=== PATIENT | male | born 1950 | race Caucasian/White ===

== ENCOUNTER → 2017-11-05 | Outpatient (CLI) | payer BC, MEDICARE | END | disposition home or self-care (01) | LOC: SHCH 14:29 | PROVIDERS: ATTEND Internal Medicine Cardiovascular Disease | DX: E11.319 Type 2 diabetes mellitus with unspecified diabetic retinopathy without macular edema (principal); I10 Essential (primary) hypertension | CPT/HCPCS: 93306 ==

== ENCOUNTER → 2022-05-18 | Outpatient (CLI) | payer BC, MEDICARE ==
[2022-05-18 12:27] LABS: BASOPHILS % (AUTO) 0.4 % (0.0-5.0); EOSINOPHILS % (AUTO) 1.3 % (0.0-8.0); HEMATOCRIT 34.9 % (42-54); LYMPHOCYTES % (AUTO) 13.6 % (21.0-51.0); MEAN CORPUSCULAR HEMOGLOBIN 32.4 pg (27.0-33.0); MEAN CORPUSCULAR HGB CONC 34.7 g/dL (32.0-36.0); MEAN CORPUSCULAR VOLUME 93.3 fL (79-99); MONOCYTES % (AUTO) 6.5 % (3.0-13.0); NEUTROPHILS % (AUTO) 77.5 % (40.0-77.0); PLATELET COUNT (AUTO) 207 K/uL (130-400); RED BLOOD CELL COUNT(AUTO) 3.74 MIL/uL (4.50-6.20); RED CELL DISTRIBUTION WIDTH 13.9 % (11.0-15.5); WHITE BLOOD COUNT (AUTO) 14.8 K/uL (4.8-10.8)
[2022-05-18 12:35] LABS: CREATININE 1.7 mg/dL (0.5-1.5); POTASSIUM 4.9 mmol/L (3.5-5.1)
[2022-05-18 12:41] LABS: INR 0.93 (0.85-1.15); PROTHROMBIN TIME 9.8 SEC (9.6-11.6)
[2022-05-18 12:42] LABS: PARTIAL THROMBOPLASTIN TIME 44.4 SEC (26.3-35.5)
== END | disposition home or self-care (01) ==
LOC: LAB 08:55
PROVIDERS: ATTEND Internal Medicine Cardiovascular Disease
DX: I73.9 Peripheral vascular disease, unspecified (principal)
CPT/HCPCS: 36415; 80048; 85025; 85610; 85730

== ENCOUNTER → 2023-01-18 | Outpatient (CLI) | payer BC, MEDICARE ==
[2023-01-18 12:21] LABS: BASOPHILS % (AUTO) 0.8 % (0.0-5.0); EOSINOPHILS % (AUTO) 3.5 % (0.0-8.0); HEMATOCRIT 31.8 % (42-54); LYMPHOCYTES % (AUTO) 17.1 % (21.0-51.0); MEAN CORPUSCULAR HEMOGLOBIN 31.5 pg (27.0-33.0); MEAN CORPUSCULAR HGB CONC 32.7 g/dL (32.0-36.0); MEAN CORPUSCULAR VOLUME 96.4 fL (79-99); MONOCYTES % (AUTO) 8.2 % (3.0-13.0); NEUTROPHILS % (AUTO) 69.7 % (40.0-77.0); PLATELET COUNT (AUTO) 214 K/uL (130-400); RED CELL DISTRIBUTION WIDTH 13.6 % (11.0-15.5); WHITE BLOOD COUNT (AUTO) 7.7 K/uL (4.8-10.8)
[2023-01-18 12:26] LABS: CREATININE 2.1 mg/dL (0.5-1.5)
[2023-01-18 12:37] LABS: INR 0.95 (0.85-1.15); PROTHROMBIN TIME 10.4 SEC (9.6-11.6)
[2023-01-18 12:38] LABS: PARTIAL THROMBOPLASTIN TIME 42.3 SEC (26.3-35.5)
== END | disposition home or self-care (01) ==
LOC: LAB 09:43
PROVIDERS: ATTEND Internal Medicine Cardiovascular Disease
DX: I73.9 Peripheral vascular disease, unspecified (principal); I10 Essential (primary) hypertension; Z79.01 Long term (current) use of anticoagulants
CPT/HCPCS: 36415; 80048; 85025; 85610; 85730

== ENCOUNTER 2023-05-25 06:02 | Emergency (ER) | payer BC, MEDICARE ==
[~2023-05-25] VITALS: Ht 170.2 cm; Wt 82.6 kg
[2023-05-25 06:42] LABS: BASOPHILS # (AUTO) 0.09 K/uL (0.00-0.20); BASOPHILS % (AUTO) 0.7 % (0.0-5.0); EOSINOPHILS # (AUTO) 0.18 K/uL (0.00-0.70); EOSINOPHILS % (AUTO) 1.3 % (0.0-8.0); HEMATOCRIT 34.1 % (42-54); IMMATURE GRANULOCYTE ABSOLUTE 0.09 K/uL (0-1); LYMPHOCYTES # (AUTO) 1.6 K/uL (1.0-4.8); LYMPHOCYTES % (AUTO) 11.3 % (21.0-51.0); MEAN CORPUSCULAR HEMOGLOBIN 31.6 pg (27.0-33.0); MEAN CORPUSCULAR HGB CONC 33.1 g/dL (32.0-36.0); MEAN CORPUSCULAR VOLUME 95.3 fL (79-99); MONOCYTES # (AUTO) 1.3 K/uL (0.1-1.0); MONOCYTES % (AUTO) 9.4 % (3.0-13.0); NEUTROPHILS # (AUTO) 10.5 K/uL (1.8-7.7); NEUTROPHILS % (AUTO) 76.6 % (40.0-77.0); PLATELET COUNT (AUTO) 196 K/uL (130-400); RED BLOOD CELL COUNT(AUTO) 3.58 MIL/uL (4.50-6.20); RED CELL DISTRIBUTION WIDTH 12.5 % (11.0-15.5); WHITE BLOOD COUNT (AUTO) 13.7 K/uL (4.8-10.8)
[2023-05-25 07:00] LABS: INR < 0.93 (0.85-1.15); PROTHROMBIN TIME 10.7 SEC (9.6-11.6)
[2023-05-25 07:10] LABS: ALBUMIN 3.3 g/dL (3.5-5.0); BILIRUBIN,TOTAL 0.4 mg/dL (0.2-1.0); POTASSIUM 4.8 mmol/L (3.5-5.1); TOTAL PROTEIN, SERUM 6.2 g/dL (6.0-8.3)
[2023-05-25 10:25] VITALS: BP 118/28; PULSE 61; RESP 20; O2SAT 98
== END 2023-05-25 10:27 | disposition home or self-care (01) ==
LOC: EDH 06:02
DX: I47.1 Supraventricular tachycardia (principal); R55 Syncope and collapse; E11.9 Type 2 diabetes mellitus without complications; I10 Essential (primary) hypertension; Z86.73 Personal history of transient ischemic attack (TIA), and cerebral infarction without residual deficits
CPT/HCPCS: 36415; 70450; 72125; 80053; 84484; 85025; 85610; 85730; 93005

== ENCOUNTER 2023-06-03 07:38 | Day surgery (SDC) | payer BC, MEDICARE ==
[2023-06-01 11:47] LABS: BASOPHILS # (AUTO) 0.05 K/uL (0.00-0.20); BASOPHILS % (AUTO) 0.6 % (0.0-5.0); EOSINOPHILS % (AUTO) 2.4 % (0.0-8.0); HEMATOCRIT 33.9 % (42-54); IMMATURE GRANULOCYTE ABSOLUTE 0.08 K/uL (0-1); LYMPHOCYTES # (AUTO) 1.8 K/uL (1.0-4.8); LYMPHOCYTES % (AUTO) 22.2 % (21.0-51.0); MEAN CORPUSCULAR HEMOGLOBIN 31.2 pg (27.0-33.0); MEAN CORPUSCULAR HGB CONC 32.7 g/dL (32.0-36.0); MEAN CORPUSCULAR VOLUME 95.2 fL (79-99); MONOCYTES # (AUTO) 0.6 K/uL (0.1-1.0); MONOCYTES % (AUTO) 7.1 % (3.0-13.0); NEUTROPHILS # (AUTO) 5.5 K/uL (1.8-7.7); NEUTROPHILS % (AUTO) 66.7 % (40.0-77.0); PLATELET COUNT (AUTO) 219 K/uL (130-400); RED BLOOD CELL COUNT(AUTO) 3.56 MIL/uL (4.50-6.20); RED CELL DISTRIBUTION WIDTH 12.7 % (11.0-15.5); WHITE BLOOD COUNT (AUTO) 8.3 K/uL (4.8-10.8)
[2023-06-01 11:57] VITALS: BP 129/59; PULSE 64; RESP 18
[2023-06-01 11:59] LABS: INR < 0.93 (0.85-1.15); PROTHROMBIN TIME 10.2 SEC (9.6-11.6)
[2023-06-01 12:35] LABS: CREATININE 2.1 mg/dL (0.5-1.5); POTASSIUM 4.3 mmol/L (3.5-5.1)
[2023-06-03] VITALS (8 sets, daily range): BP systolic 132–146; BP diastolic 62–76; PULSE 57–84; RESP 14–18
[~2023-06-03] VITALS: Ht 170.2 cm; Wt 82.6 kg
[~2023-06-03 07:38] MED LIST: AEC81 PO; ATOR10 PO; CHOL100053 PO; CLOP75TA32 PO; DOCU100T PO; DRON400T7 PO; FOLI1TAB85 PO; INSLAN SQ; INSU100V3 SQ; LATA2.5D14 OD; LEVO25CA4 PO; MAGNESIUM PO; PANT40TA54 PO
[2023-06-03 08:08] LABS: CREATININE 2.3 mg/dL (0.5-1.5); POTASSIUM 5.4 mmol/L (3.5-5.1)
[2023-06-03] MEDS ORDERED: HEPARIN 10,000 UNIT/10ML (1,000 UNIT/ML) VIAL ONE (10:05)
[2023-06-03] MEDS ORDERED: LIDOCAINE HCL 400MG/20ML VIAL ONE ×2 (10:05→10:35)
[2023-06-03] MEDS ORDERED: MEPERIDINE-PF 25 MG/ML SYG ONE ×2 (10:05→11:56)
[2023-06-03] MEDS ORDERED: ISOPROTERENOL HCL 0.2 MG/ML AMP/VIAL/BAG ONE (10:05)
[2023-06-03] MEDS ORDERED: MIDAZOLAM HCL 1 MG/ML 2ML VIAL ONE ×2 (10:05→11:55)
[2023-06-03] MEDS ORDERED: HYDRALAZINE 20MG/ML VIAL ONE (12:49)
== END 2023-06-03 15:35 | disposition home or self-care (01) ==
LOC: DAH 07:38
PROVIDERS: ATTEND Internal Medicine Cardiovascular Disease
DX: I47.1 Supraventricular tachycardia (principal); E11.22 Type 2 diabetes mellitus with diabetic chronic kidney disease; I12.9 Hypertensive chronic kidney disease with stage 1 through stage 4 chronic kidney disease, or unspecified chronic kidney disease; N18.30 Chronic kidney disease, stage 3 unspecified; E11.51 Type 2 diabetes mellitus with diabetic peripheral angiopathy without gangrene; E78.5 Hyperlipidemia, unspecified; K21.9 Gastro-esophageal reflux disease without esophagitis; I25.2 Old myocardial infarction; G47.30 Sleep apnea, unspecified; Z79.01 Long term (current) use of anticoagulants; Z79.899 Other long term (current) drug therapy; Z98.890 Other specified postprocedural states; Z79.82 Long term (current) use of aspirin; Z88.8 Allergy status to other drugs, medicaments and biological substances; Z86.73 Personal history of transient ischemic attack (TIA), and cerebral infarction without residual deficits; Z72.89 Other problems related to lifestyle; Z86.16 Personal history of COVID-19; Z98.41 Cataract extraction status, right eye; Z98.42 Cataract extraction status, left eye; Z90.89 Acquired absence of other organs; Z79.4 Long term (current) use of insulin; Z79.890 Hormone replacement therapy; Z87.891 Personal history of nicotine dependence; Z81.1 Family history of alcohol abuse and dependence; Z82.5 Family history of asthma and other chronic lower respiratory diseases; Z83.3 Family history of diabetes mellitus; Z83.438 Family history of other disorder of lipoprotein metabolism and other lipidemia; Z80.1 Family history of malignant neoplasm of trachea, bronchus and lung
CPT/HCPCS: 80048 ×2; 85025; 85610; 85730; 36415 ×2; 93005; 93653; 93623; 82948 ×2; C1894 ×5; C1732 ×2; C1730 ×3; A4649 ×2; J3490 ×3; J0360; J1644 ×2; J2250; J2175; A4215; A4221; A4663; A4216; A4606; A4223 ×3; A4222; 99156; 99157

== ENCOUNTER → 2023-07-08 | Outpatient (CLI) | payer BC, MEDICARE ==
[~2023-07-08] MED LIST changes: -DRON400T7 PO
== END | disposition home or self-care (01) ==
LOC: SHCH 14:44
PROVIDERS: ATTEND Internal Medicine Cardiovascular Disease
DX: I73.9 Peripheral vascular disease, unspecified (principal)
CPT/HCPCS: 93970

== ENCOUNTER 2024-11-29 07:06 | Inpatient (IN) | payer BC, MEDICARE ==
[~2024-11-29] VITALS: Ht 170.2 cm; Wt 98.4 kg
[2024-11-29] VITALS (10 sets, daily range): BP systolic 140–150; BP diastolic 70–71; PULSE 52–80; RESP 18–21; TEMP 97.6–97.9; O2SAT 96–100
--- NOTE | 2024-11-29 08:30 | ERN ---
General Chief Complaint: Wound Check Stated Complaint: LEFT FOOT WOUND Time Seen by MD: 07:08 Source: patient History of Present Illness Initial Comments This is a 74-year-old male coming in to be evaluated for left foot 2nd digit necrosis. Per patient he was seen by his ortho assistant and sent in for further evaluation. He states that on Wednesday he was seen by Dr. Horta for ongoing evaluation of left foot 2nd digit necrosis. Allergies: Coded Allergies: No Known Drug Allergies (Unverified Allergy, Unknown, 05/25/23) Home Meds Reported Medications Latanoprost (Latanoprost) 2.5 Ml Drops, 1 DROP OD HS, DROP 06/01/23 Insulin Glargine,Hum.rec.anlog (Lantus) 100 Units/Ml Inj, 5 UNITS SQ HS, ML SLIDING SCALE 06/01/23 Insulin Regular, Human (Humulin R) 100 Unit/1 Ml Vial, SQ TID, VIAL SLIDING SCALE 06/01/23 Docusate Sodium (Docusate Sodium) 100 Mg Tablet, 100 MG PO HS, TAB 06/01/23 Levothyroxine Sodium (Levothyroxine) 25 Mcg Capsule, 25 MCG PO HS, CAP 06/01/23 Clopidogrel Bisulfate (Clopidogrel) 75 Mg Tablet, 75 MG PO DAILY, TAB 06/01/23 Vit B Cmplx 3/FA/Vit C/Biotin (Jenna-Gretchen Rx Tablet) 1 Each Tablet, 1 EACH PO DAILY, TAB 06/01/23 Pantoprazole Sodium (Pantoprazole Sodium) 40 Mg Tablet.dr, 40 MG PO DAILY, TAB 06/01/23 Cholecalciferol (Vitamin D3) (Vitamin D3) 250 Mcg Capsule, 250 MCG PO ACBKFST, CAP 06/01/23 Aspirin (ASPIRIN 81 MG ECTAB) 81 Mg Ectab, 81 MG PO DAILY, TAB.EC 06/01/23 Atorvastatin Calcium (LIPITOR) 20 Mg Tab, 20 MG PO HS, TAB 06/01/23 [Magnesium] No Conflict Check, 240 MG PO HS 06/01/23 Past Medical History Past Medical History: Cancer, CVA, Diabetes-Type II, Hypertension, IN Medical History Other: SVT, Past Surgical History: CABG, Unknown Family History Family History: Negative Social History Social History: Negative ROS Dictation CONSTITUTIONAL: No chills, no fever, no weakness, no diaphoresis, no malaise. HEAD/FACE: No signs of trauma. EENT: No eye pain, no blurred vision, no tearing, no double vision, no ear pain, no ear discharge, no nose pain, no nasal congestion, no throat pain, no throat swelling, no mouth pain. RESPIRATORY: No cough, no orthopnea, no SOB, no stridor, no wheezing. CARDIOVASCULAR: No chest pain, no edema, no palpitations, no syncope. GASTROINTESTINAL/ABDOMINAL: No abdominal pain, no constipation, no diarrhea, no nausea, no vomiting. GENITOURINARY: No abnormal discharge, no dysuria, no frequent urination, no hematuria. No complaints of pain in the genitals. MUSCULOSKELETAL: No back pain, no gout, no joint pain, no joint swelling, no muscle pain, no muscle stiffness, no neck pain. INTEGUMENTARY: change in color, no change in hair/nails, no dryness, no lesion, no lumps, no rash. NEUROLOGICAL/PSYCH: No anxiety, not depressed, no emotional problem, no headac he, no numbness, no pre-existing deficit, no history of seizures, no tremors, no weakness. HEMATOLOGIC/LYMPHATIC: Not anemic, no history of blood clots, no apparent bleeding, no bruising, glands not swollen. All Systems Negative, Except as Noted. Physical Exam Physical Exam Dictation VITAL SIGNS: Reviewed. GENERAL APPEARANCE: Alert, oriented x3, no acute distress, obese. HEAD AND FACE: Non-traumatic. EYES: PERRL, pink conjunctivas, eyelid no trauma, anterior chamber clear. EARS: Pinnas intact and no signs of trauma or erythema. Ear canals clear and no discharge. TMs no erythema. NOSE: No discharge, no bleeding. OROPHARYNX: Mouth normal, teeth no caries, tongue pink. Pharynx clear, no erythema. Tonsils no exudates, no abscesses noted. Mucous membrane moist. NECK: Supple, non-tender, no thyromegaly, no masses, no JVD, no bruits. BREAST: Deferred. CHEST: No tenderness, no crepitus, no paradoxical movement, no retractions. LUNGS: Clear, well-ventilated, symmetric, no rales, no wheezing, no rhonchi, no stridor, good breath sounds bilaterally. HEART: Regular rate, regular rhythm, no murmur, no gallops. VASCULAR: No peripheral edema. ABDOMEN: Soft, positive bowel sounds, nondistended, no guarding, nontender, no rebound, no masses no hepatomegaly, no splenomegaly, no Bowers's sign, no hernias. RECTAL: Deferred. GENITAL: Deferred. NEUROLOGICAL: Normal speech, gross motor function intact, gross sensory function intact. MUSCULOSKELETAL: Neck nontender, full range of motion, back nontender, full range of motion. EXTREMITIES: Nontender, full range of motion. Left foot 2nd digit necrosis SKIN: Color pink, dry, no turgor, no rash, no lacerations, no abrasions, no contusions. LYMPHATICS: Deferred. Results Laboratory and Microbiology Lab and Micro Result Laboratory Tests Test 11/29/24 08:34 White Blood Count 12.5 K/uL (4.8-10.8) H Red Blood Count 4.04 MIL/uL (4.50-6.20) L Hemoglobin 12.6 g/dL (14.0-18.0) L Hematocrit 38.6 % (42-54) L Mean Corpuscular Volume 95.5 fL (79-99) Mean Corpuscular Hemoglobin 31.2 pg (27.0-33.0) Mean Corpuscular Hemoglobin Concent 32.6 g/dL (32.0-36.0) Red Cell Distribution Width 14.1 % (11.0-15.5) Platelet Count 247 K/uL (130-400) Mean Platelet Volume 11.1 fL (7.5-10.5) H Immature Granulocyte % (Auto) 0.6 % (0-1) Neutrophils (%) (Auto) 73.4 % (40.0-77.0) Lymphocytes (%) (Auto) 16.6 % (21.0-51.0) L Monocytes (%) (Auto) 7.1 % (3.0-13.0) Eosinophils (%) (Auto) 1.7 % (0.0-8.0) Basophils (%) (Auto) 0.6 % (0.0-5.0) Neutrophils # (Auto) 9.2 K/uL (1.8-7.7) H Lymphocytes # (Auto) 2.1 K/uL (1.0-4.8) Monocytes # (Auto) 0.9 K/uL (0.1-1.0) Eosinophils # (Auto) 0.21 K/uL (0.00-0.70) Basophils # (Auto) 0.08 K/uL (0.00-0.20) Absolute Immature Granulocyte (auto 0.08 K/uL (0-1) Nucleated Red Blood Cells 0.0 % (0.0-0.19) Erythrocyte Sedimentation Rate 30 MM/HR (0-20) H Sodium Level 141 mmol/L (136-145) Potassium Level 4.5 mmol/L (3.5-5.1) Chloride Level 105 mmol/L (101-111) Carbon Dioxide Level 30 mmol/L (21-32) Blood Urea Nitrogen 35 mg/dL (7-18) H Creatinine 1.8 mg/dL (0.5-1.3) H Glomerular Filtration Rate Calc 40 mL/min (>90) Random Glucose 145 mg/dL (70-105) H Lactic Acid Level 1.0 mmol/L (0.8-2.5) Total Calcium 8.5 mg/dL (8.5-10.1) Total Creatine Kinase 103 U/L (21-232) Troponin I High Sensitivity 10 ng/L (4-75) Labs Reviewed?: Yes EKG/XRAY/US/CT/MRI X-RAY Comment [address] [address] IMAGING REPORT Signed PATIENT: PILY TEJADA MR#: [id number] : 1950 SEX: M AGE: 74 LOCATION: ED ORDER 9 STATUS: REG ER REPORT#: [id number] SERVICE 9 REASON: 2ND DIGIT NECROSIS ORDERING PHYSICIAN: REJI PEREZ MD PROCEDURE: TOES LT - TOE(S) 2+VWS LT LEFT SECOND TOE RADIOGRAPHS - 2-3 VIEWS INDICATION: Second toe necrosis COMPARISON: None FINDINGS: AP, lateral views. No evidence for acute fracture or subluxation. No evidence for periosteal reaction, cortical erosive changes, or any abnormal subperiosteal bone resorption. Extensive arterial wall calcific plaque. IMPRESSION: No evidence for osteomyelitis. DICTATED BY: ROBERT HOLM MD DATE: 11/29/2449 ELECTRONICALLY SIGNED BY: ROBERT HOLM MD DATE: 11/29/24 0953 [facility] MDM: Differential diagnosis: Necrosis the digit, osteomyelitis, sepsis, Rationale: Tests considered and ordered secondary to shared decision making include: labs, ECG and radiology Previous outside records reviewed: Old ER visits. Risk of complication and/or morbidity or mortality of patient management: None Medications-Per medication reconciliation Need for hospitalization: Patient does meet criteria for hospitalization. Need for emergency major/minor surgery: No There are no social concerns with this patient. Prescription drug management Prescriptions will include symptomatic care Patient's prior external medical records from other ER visits were reviewed by me as indicated. Prior testing and results from previous visits were reviewed. Prior tests were taken into account with medical decision making and resource utilization, independent historian/historians were used to obtain complete medical history. I independently interpreted the test that were performed, results were reviewed by me and considered findings on radiology if ordered. Medical management and examination interpretation discussions were had by me with other qualified healthcare professionals as indicated for the patient's care. Patient is a 74-year-old male coming in to be evaluated for left foot 2nd digit necrosis. On physical exam there is a ischemic left toe patient was started on vancomycin patient will be admitted under the care of hospitalist group for ongoing management. Dr. Horta is patient's ortho assistant.. ED Course Orders Procedure Category Date Status Time 12 Lead Ekg Tracing- EKG 11/29/24 Complete Technical 07:47 Cbc With Differential LAB 11/29/24 Complete 07:47 Blood Cult TIFFANY 11/29/24 In Process 07:47 Type And Screen BBK 11/29/24 In Process 07:47 Vancomycin 1g/250ml PHA 11/29/24 Complete Kit (Vancomycin 1g/2 08:00 Creatine Kinase, Total LAB 11/29/24 Complete 07:47 Troponin I High LAB 11/29/24 Complete Sensitivity 07:47 Lactic Acid LAB 11/29/24 Complete 07:47 Basic Metabolic Panel LAB 11/29/24 Complete 07:47 Erythrocyte LAB 11/29/24 Complete Sedimentation Rate 07:47 Zosyn 3.375gm+Ns 50ml PHA 11/29/24 Complete (Zosyn 3.375gm+Ns 10:00 Toe(S) 2+Vws Lt RAD 11/29/24 Resulted 07:50 Current Medications Medications (Trade) Dose Ordered Sig/Jessi Route PRN Reason Start Time Stop Time Status Last Admin Dose Admin Piperacillin Sod/ Tazobactam Sod (Zosyn 3.375gm+NS 50ml) 3.375 gm ONCE ONCE IV 11/29/24 10:00 11/29/24 10:01 DC 11/29/24 09:42 Vancomycin HCl 250 ml @ 125 mls/hr ONCE ONCE IV 11/29/24 08:00 11/29/24 09:59 DC 11/29/24 10:10 Vital Signs Date Time Temp Pulse Resp B/P (MAP) Pulse Ox O2 Delivery O2 Flow Rate FiO2 11/29/24 07:07 97.2 61 16 144/61 100 0 Critical Care Note Comments Critical Care Procedure Note Authorized and Performed by: Total critical care time: Approximately 36 minutes Due to a high probability of clinically significant, life threatening deterioration, the patient required my highest level of preparedness to intervene emergently and I personally spent this critical care time directly and personally managing the patient. This critical care time included obtaining a history; examining the patient; pulse oximetry; ordering and review of studies; arranging urgent treatment with development of a management plan; evaluation of patient's response to treatment; frequent reassessment; and, discussions with other providers. This critical care time was performed to assess and manage the high probability of imminent, life-threatening deterioration that could result in multi-organ failure. It was exclusive of separately billable procedures and treating other patients and teaching time. Please see MDM section and the rest of the note for further information on patient assessment and treatment. DX & DISP Disposition: Inpatient Decision to Admit Time: 10:17 Departure Impression: Primary Impression: Toe necrosis Additional Impression: Sepsis Condition: Stable Referrals: ANJU GOMES MD (PCP) REJI PEREZ MD Nov 29, 2024 08:30
--- NOTE | 2024-11-29 08:43 | EKG ---
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
[2024-11-29 08:51] LABS: BASOPHILS # (AUTO) 0.08 K/uL (0.00-0.20); BASOPHILS % (AUTO) 0.6 % (0.0-5.0); EOSINOPHILS # (AUTO) 0.21 K/uL (0.00-0.70); EOSINOPHILS % (AUTO) 1.7 % (0.0-8.0); HEMATOCRIT 38.6 % (42-54); IMMATURE GRANULOCYTE ABSOLUTE 0.08 K/uL (0-1); LYMPHOCYTES # (AUTO) 2.1 K/uL (1.0-4.8); LYMPHOCYTES % (AUTO) 16.6 % (21.0-51.0); MEAN CORPUSCULAR HEMOGLOBIN 31.2 pg (27.0-33.0); MEAN CORPUSCULAR HGB CONC 32.6 g/dL (32.0-36.0); MEAN CORPUSCULAR VOLUME 95.5 fL (79-99); MONOCYTES # (AUTO) 0.9 K/uL (0.1-1.0); MONOCYTES % (AUTO) 7.1 % (3.0-13.0); NEUTROPHILS # (AUTO) 9.2 K/uL (1.8-7.7); NEUTROPHILS % (AUTO) 73.4 % (40.0-77.0); PLATELET COUNT (AUTO) 247 K/uL (130-400); RED BLOOD CELL COUNT(AUTO) 4.04 MIL/uL (4.50-6.20); RED CELL DISTRIBUTION WIDTH 14.1 % (11.0-15.5); WHITE BLOOD COUNT (AUTO) 12.5 K/uL (4.8-10.8)
[2024-11-29 08:58] LABS: CREATININE 1.8 mg/dL (0.5-1.3); POTASSIUM 4.5 mmol/L (3.5-5.1)
[2024-11-29] MEDS: ZOSYN 3.375GM +NS 50ML IV ONE (09:42)
--- NOTE | 2024-11-29 09:53 | HMCIMG ---
LEFT SECOND TOE RADIOGRAPHS - 2-3 VIEWS INDICATION: Second toe necrosis COMPARISON: None FINDINGS: AP, lateral views. No evidence for acute fracture or subluxation. No evidence for periosteal reaction, cortical erosive changes, or any abnormal subperiosteal bone resorption. Extensive arterial wall calcific plaque. IMPRESSION: No evidence for osteomyelitis.
[2024-11-29 09:56] LABS: ERYTHROCYTE SEDIMENTATION RATE 30 MM/HR (0-20)
[2024-11-29] MEDS: VANCOMYCIN 1G/250ML KIT 250 ML IV ONE (10:10)
[2024-11-29] MEDS ORDERED: TAMS-1 PO (11:22)
[2024-11-29] MEDS ORDERED: ATOR10 PO (11:22)
[2024-11-29] MEDS ORDERED: RIVA10TA PO (11:22)
[2024-11-29] MEDS ORDERED: FOLI0.8T22 PO (11:22)
[2024-11-29 11:26] LABS: INR 0.99 (0.85-1.15); PROTHROMBIN TIME 10.5 SEC (9.6-11.6)
[2024-11-29 11:28] LABS: ALBUMIN 3.2 g/dL (3.5-5.0); BILIRUBIN,DIRECT 0.1 mg/dL (0.0-0.3); BILIRUBIN,TOTAL 0.4 mg/dL (0.2-1.0); MAGNESIUM 1.9 mg/dL (1.80-2.40); PARTIAL THROMBOPLASTIN TIME 51.5 SEC (26.3-35.5); TOTAL PROTEIN, SERUM 6.8 g/dL (6.0-8.3)
[2024-11-29] MEDS ORDERED: LACTATED RINGERS 1000ML 1,000 ML IV SCH (11:30)
[2024-11-29] MEDS ORDERED: VANCOMYCIN 1G/250ML KIT 250 ML IV ONE (11:30)
[2024-11-29] MEDS: INSULIN humuLIN R 100 UNIT/ML 3ML SQ SCH (11:30)
[2024-11-29] MEDS ORDERED: VANCOMYCIN PROTOCOL PER PHARMACY IV SCH (11:30)
[2024-11-29] MEDS ORDERED: ondanSETRON 4MG INJ IVP PRN (11:30)
[2024-11-29] MEDS ORDERED: RENAL DOSE IV SCH (11:30)
--- NOTE | 2024-11-29 11:54 | HP ---
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 Symptoms have been ongoing for the past several days and patient states that he followed up with Dr. Horta with Cardiology as outpatient on Wednesday. He was advised to come to the ER today for further evaluation as well as plans for lower extremity angiography. states that patient has had previous injury to the left foot while using the wheelchair. He has had progressive necrosis of the 2nd toe of the left foot as and is being followed by Dr. Rodriguez with wound care as outpatient. Patient denies any significant pain. He does have expressive aphasia from previous stroke. reports that patient has a stroke twice previously. He also has a history of GA as well as lower extremity DVTs. Currently he is on Xarelto 2.5 mg twice daily for peripheral arterial disease. On presentation to the hospital, patient was noted to be afebrile with T-max of 97.2 F, heart rate of 61, blood pressure of 144/61. Labs [place] [address], hemoglobin 12.6, platelet count of 744967. CMP remarkable for sodium of 141, potassium 4.5, creatinine 1.8, lactic acid of one. X-ray of the 2nd toe showed no signs of acute osteomyelitis. Patient will be admitted for further management of progressive necrotic 2nd toe with underlying cellulitis. Plan is for lower extremity angiogram tomorrow. Consultation with Cardiology and Podiatry and Infectious Disease will be requested. does report that patient has history of chronic cough and uses thickener when eating. Patient has mild coughing and does get pooling of respiratory secretions. We will obtain chest x-ray to rule out any developing pneumonia. Patient will be placed on broad-spectrum antibiotics as well. REVIEW OF SYSTEMS CONSTITUTIONAL: Denies fevers, chills, or night sweats. No unintentional weight loss reported. NEUROLOGICAL: Denies headache, amaurosis fugax, motor weakness, sensory deficit, vertigo/spinning sensation, gait abnormalities, or tremors. ENT: No hearing loss, otalgia, otorrhea, rhinitis, rhinorrhea, hoarseness, or sore throat. CARDIOVASCULAR: Denies any exertional angina, dyspnea on exertion, orthopnea, paroxysmal nocturnal dyspnea, palpitations, life-threatening arrhythmias, claudication. PULMONARY: Denies any shortness of breath, cough, phlegm/sputum, hemoptysis, pleuritic chest pain. SLEEP: Denies morning headaches, daytime somnolence or napping. Denies difficulty falling asleep, staying asleep, waking from sleep. Denies knowledge of snoring. GASTROINTESTINAL: Denies any type of dysphagia to either liquids or solids. Denies nausea, vomiting, pyrosis, early satiety, abdominal pain, diarrhea, constipation, or changes in stool consistency or caliber. Denies coffee-ground emesis, hematemesis, hematochezia, or melanotic stools. GENITOURINARY: Denies frequency, urgency, nocturia, hematuria or incontinence (Storage/Irritative symptoms.) Low urinary stream, straining to void, urinary intermittency or hesitancy, splitting of the voiding stream, terminal dribbling. ENDOCRINOLOGIC: Denies polyuria, polydipsia, polyphagia or heat/cold intolerances. HEMATOLOGIC: Denies thrombophilia/previous clots, or coagulopathy/bleeding disorders. ONCOLOGIC: Denies personal history of malignancy. DERMATOLOGIC: Progressive necrosis of the 2nd toe of the left foot PSYCHIATRIC: Denies any suicidal or homicidal ideation. Denies hallucinations. PAST MEDICAL HISTORY: Hypertension, history of recurrent strokes with most recent being in 2023 complicated by left-sided hemiparesis and expressive aphasia, history of NSTEMI, history of multivessel coronary artery disease, type 2 diabetes mellitus, hyperlipidemia, peripheral arterial disease, history of diabetic foot ulcers, history of skin cancer involving the face, history of SVTs previously, hypothyroidism PAST SURGICAL HISTORY: History of coronary artery bypass grafting previously, history of right ankle surgery, previous hx of lower extremity angiogram with angioplasty PAST SOCIAL HISTORY: Denies active smoking, reports that patient has a previous history of significant alcohol consumption, currently has quit alcohol use FAMILY HISTORY: Family history of diabetes mellitus and smoking Allergies: No known drug allergies Family will be bringing a list of home medications to be reconciled and updated Coded Allergies: No Known Drug Allergies (Unverified Allergy, Unknown, 05/25/23) PHYSICAL EXAM GENERAL APPEARANCE: The patient is awake, alert, and oriented, in no acute cardiopulmonary distress. NEUROLOGICAL: Cranial nerves II-XII grossly intact. Motor is 5/5 in bilateral upper and lower extremities proximal to distal. No sensory deficits. HEENT: Face is symmetric. Pupils are equal and reactive. Extraocular movements are intact. NECK: Supple. No JVD. No thyromegaly. No submental, submandibular, pre- /postauricular, occipital or supraclavicular lymphadenopathy. CHEST: Normal chest expansion. No Telemetry. LUNGS: Absence of any rales, rhonchi or any wheezing. CARDIOVASCULAR: Regular. S1 and S2 normal. No appreciable rubs, murmurs or gallops. ABDOMEN: Soft, nontender, and nondistended. There is no rebound, voluntary guarding, or rigidity. : Deferred. No López. EXTREMITIES: Non-edematous and not cyanotic. No clubbing. Good capillary refill. SKIN: No skin breakdown. Vital Sign (Last 24 Hours) 11/29/24 08:00 Temp 98.2 Pulse 67 Resp 18 B/P (MAP) 144/41 Pulse Ox 100 O2 Delivery Room Air* O2 Flow Rate 0 FiO2 21 LABS: Laboratory: Test 11/29/24 08:34 Range/Units White Blood Count 12.5 H 4.8-10.8 K/uL Red Blood Count 4.04 L 4.50-6.20 MIL/uL Hemoglobin 12.6 L 14.0-18.0 g/dL Hematocrit 38.6 L 42-54 % Mean Corpuscular Volume 95.5 79-99 fL Mean Corpuscular Hemoglobin 31.2 27.0-33.0 pg Mean Corpuscular Hemoglobin Concent 32.6 32.0-36.0 g/dL Red Cell Distribution Width 14.1 11.0-15.5 % Platelet Count 247 130-400 K/uL Mean Platelet Volume 11.1 H 7.5-10.5 fL Immature Granulocyte % (Auto) 0.6 0-1 % Neutrophils (%) (Auto) 73.4 40.0-77.0 % Lymphocytes (%) (Auto) 16.6 L 21.0-51.0 % Monocytes (%) (Auto) 7.1 3.0-13.0 % Eosinophils (%) (Auto) 1.7 0.0-8.0 % Basophils (%) (Auto) 0.6 0.0-5.0 % Neutrophils # (Auto) 9.2 H 1.8-7.7 K/uL Lymphocytes # (Auto) 2.1 1.0-4.8 K/uL Monocytes # (Auto) 0.9 0.1-1.0 K/uL Eosinophils # (Auto) 0.21 0.00-0.70 K/uL Basophils # (Auto) 0.08 0.00-0.20 K/uL Absolute Immature Granulocyte (auto 0.08 0-1 K/uL Nucleated Red Blood Cells 0.0 0.0-0.19 % Erythrocyte Sedimentation Rate 30 H 0-20 MM/HR Prothrombin Time 10.5 9.6-11.6 SEC Prothromb Time International Ratio 0.99 0.85-1.15 Activated Partial Thromboplast Time 51.5 H 26.3-35.5 SEC Sodium Level 141 136-145 mmol/L Potassium Level 4.5 3.5-5.1 mmol/L Chloride Level 105 101-111 mmol/L Carbon Dioxide Level 30 21-32 mmol/L Blood Urea Nitrogen 35 H 7-18 mg/dL Creatinine 1.8 H 0.5-1.3 mg/dL Glomerular Filtration Rate Calc 40 >90 mL/min Random Glucose 145 H 70-105 mg/dL Lactic Acid Level 1.0 0.8-2.5 mmol/L Total Calcium 8.5 8.5-10.1 mg/dL Magnesium Level 1.90 1.80-2.40 mg/dL Total Bilirubin 0.4 0.2-1.0 mg/dL Direct Bilirubin 0.1 0.0-0.3 mg/dL Aspartate Amino Transf (AST/SGOT) 41 H 10-37 U/L Alanine Aminotransferase (ALT/SGPT) 68 12-78 U/L Alkaline Phosphatase 141 H 50-136 U/L Total Creatine Kinase 103 21-232 U/L Troponin I High Sensitivity 10 4-75 ng/L C-Reactive Protein, Quantitative 2.00 0.5-3.0 mg/L Total Protein 6.8 6.0-8.3 g/dL Albumin 3.2 L 3.5-5.0 g/dL Current Medications Medications (Trade) Dose Ordered Sig/Jessi Route PRN Reason Start Time Stop Time Status Last Admin Dose Admin Acetaminophen (TYLenol 325MG TAB) 650 mg Q6H PRN PO MILD PAIN (1-3) 11/29/24 11:30 12/29/24 11:29 Aspirin (Aspirin 81mg Ec Tab) 81 mg DAILY PO 11/30/24 09:00 12/30/24 08:59 Budesonide (Pulmicort 0.5 Mg/2ml) 0.5 mg BIDRESP IH 11/29/24 11:00 12/29/24 10:59 Cefepime HCl (MAXipime 1 GM vial) 1 gm Q24H IVPB 11/29/24 13:00 12/09/24 12:59 Insulin Human Regular (humuLIN R 100 UNIT/ML 3ML) INSULIN SLIDING SCAL... ACHS SQ 11/29/24 11:30 12/29/24 11:29 Ipratropium [place] (AtrovENT UD) 1 mg Q6H PRN IH SHORTNESS OF BREATH 11/29/24 11:30 12/29/24 11:29 Lactated Ringer's 1,000 ml @ 50 mls/hr Q20H IV 11/29/24 11:30 12/29/24 11:29 Ondansetron HCl (zoFRAN 4MG INJ) 4 mg Q6H PRN IVP NAUSEA/VOMITING 11/29/24 11:30 12/29/24 11:29 Rivaroxaban (Xarelto) 2.5 mg BID PO 11/29/24 21:00 12/29/24 20:59 Vancomycin HCl 250 ml @ 125 mls/hr Q24H IV 11/30/24 08:00 12/10/24 07:59 Vancomycin HCl (Vancomycin Protocol) 1 each AD IV 11/29/24 11:30 12/13/24 11:29 DIAGNOSTICS / RADIOLOGY: SERVICE 0750 REASON: 2ND DIGIT NECROSIS ORDERING PHYSICIAN: REJI PEREZ MD PROCEDURE: TOES LT - TOE(S) 2+VWS LT LEFT SECOND TOE RADIOGRAPHS - 2-3 VIEWS INDICATION: Second toe necrosis COMPARISON: None FINDINGS: AP, lateral views. No evidence for acute fracture or subluxation. No evidence for periosteal reaction, cortical erosive changes, or any abnormal subperiosteal bone resorption. Extensive arterial wall calcific plaque. IMPRESSION: No evidence for osteomyelitis. DICTATED BY: ROBERT HOLM MD DATE: 11/29/24948 ELECTRONICALLY SIGNED BY: ROBERT HOLM MD DATE: 11/29/24952 ASSESSMENT: Left 2nd toe necrosis with progressive cellulitis, POA 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 foot, POA Underlying peripheral arterial disease, POA Leukocytosis, POA Underlying history of type 2 diabetes mellitus, POA 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, POA History of lower extremity DVT, POA History of multivessel coronary artery disease with prior history of CABG, POA History of NSTEMI, POA History of SVT, POA Chronic kidney disease stage 3, POA Hypertension, POA Hyperlipidemia, POA Debility, POA History of oropharyngeal dysphagia, POA Hx of Hypothyroidism, POA PLAN: Patient will be admitted to medical-surgical floor under telemetry monitoring We will keep patient on broad-spectrum antibiotics with renally dosed IV vancomycin and cefepime given leukocytosis on presentation and underlying cellulitis with necrotic 2nd toe Appreciate recommendations by Dr. Horta with Cardiology, plan is for lower extremity angiogram tomorrow morning Appreciate recommendations by Dr. Sarabia, with Podiatry, there is tentative plans for amputation of the 2nd toe on Wednesday next week following lower extremity angiogram We will have Infectious Disease follow up with this patient We will follow up blood cultures, ESR, CRP, procalcitonin Patient will be placed on sliding scale insulin a.c. and HS Hold home medications were reconciled and updated Patient will be placed on aspiration precautions, he does have pooling of secretions from underlying history of stroke, we will obtain speech evaluation to rule out any silent aspiration, obtain chest x-ray as well Patient will be placed on Pulmicort twice daily and Atrovent inhalation q.6 hours p.r.n. All labs will be repeated in the morning anticipate hospitalization for greater than 72 hours Patient has underlying history of strokes and DVT, APTT is noted to be prolonged and patient is on small dose of Xarelto 2.5 mg b.i.d., we will obtain workup for antiphospholipid syndrome including MILVIA screen, beta two glycoprotein antibody, lupus anticoagulant and cardiolipin antibody Date of service: 11/29/2024 Plan of care was discussed with patient and at bedside, Braydon Bolivar MD Advanced Care Planning: Which of the following were discussed: Hospice care: Yes __ No _X_ Therapeutic options: Yes _X_ No __ Advance directives: Yes _X_ No __ Other discussions: Discussed with who?: Patient Voluntary nature of this service was explained to the patient? Yes _x_ No __ Amount of time spent: 20 minutes BRAYDON BOLIVAR MD Nov 29, 2024 11:54
[2024-11-29] MEDS: BUDESONIDE 0.5 MG/2 ML INH IH SCH (12:02)
[2024-11-29] MEDS: IpraTROPium 0.5 MG/2.5 ML INH IH PRN ×2 (12:06→19:04)
--- NOTE | 2024-11-29 12:18 | HMCIMG ---
PORTABLE CHEST RADIOGRAPH INDICATION: COUGH, ASSESS FOR ASPIRATION COMPARISON: None FINDINGS: security monitor leads overlie the field of view. Median sternotomy wires as well as fixation plates and screws are in appropriate alignment. Heart size is normal. Mild calcific plaque is present along the aortic arch oliveira. The pulmonary vascularity and rochelle appear normal. No abnormal pulmonary parenchymal opacity or consolidation identified. No significant pleural effusion noted. No pneumothorax detected. Multiple chronic bilateral rib fracture deformities. IMPRESSION: No radiographic evidence for any acute cardiopulmonary process.
--- NOTE | 2024-11-29 12:45 | CONS ---
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 The ulcers began after traumatic injury to the left foot. The ulcers have progressively worsened over the last three weeks, despite receiving wound care therapy. The 2nd digit is now black and necrotic. The 5th digit is slowly turning black. Associated symptoms include pain in the left foot. The patient denies any other active complaints including headache, dizziness, syncope, chest pain, chest pre ssure, palpitations, shortness for breath, abdominal pain, weight gain, or lower extremity swelling/edema. The patient is not physically active and ambulates with the assistance of the scooter. He is partially dependent on his for assistance with ADLs and IADLs. He remains compliant with medications and denies any other active issues. PMH: Listed above PSH: Listed above FH: Significant for CAD, HTN, DMII, and CVA. SH: History of alcohol abuse. Denies tobacco or illicit drug use. Allergies: Coded Allergies: No Known Drug Allergies (Unverified Allergy, Unknown, 05/25/23) Review of systems: General: Denies fever or chills HEENT: Denies changes in vision, earache or sore throat Neck: Denies pain or stiffness Cardio: As per the HPI Pulm: Denies SOB, coughing or wheezing GI: Denies abdominal pain, nausea, vomiting, diarrhea, or constipation. MSK: As per the HPI. Heme: Denies anemia, easy bruising, or bleeding. Neuro: Denies headache, dizziness, or syncope. Skin: As per the HPI. Psych: Denies anxiety, depression, or suicide ideations. Physical Exam: Vital Signs Date Time Temp Pulse Resp B/P (MAP) Pulse Ox O2 Delivery O2 Flow Rate FiO2 11/29/24 12:09 61 20 N/A Room Air 21 11/29/24 08:00 98.2 144/41 100 0 General: Alert and oriented x 3. NAD HEENT: NC/AT. Oral mucosa is moist. Neck: No masses, JVD, or carotid bruits Lungs: NRD. SCM. B/L air entry noted. Fine rales heard in the lung parker. No obvious wheezing. Cardio: Rate @ 61bpm. Normal S1 and S2. +S4. PMI was not displaced. Abdomen: Soft. NT. ND. Normal active bowel sounds x 4 quadrants. Extremities: The 2nd digit in the left foot is black and necrotic down to the base. There is a black ulcer seen the 5th digit of the left foot. The left foot is swollen. Diminished pulses noted in the left-sided dorsalis pedis and posterior tibial arteries. Neuro: CN II-XII were grossly intact. Labs: Laboratory Tests Test 11/29/24 08:34 11/29/24 11:58 Range/Units White Blood Count 12.5 H 4.8-10.8 K/uL Red Blood Count 4.04 L 4.50-6.20 MIL/uL Hemoglobin 12.6 L 14.0-18.0 g/dL Hematocrit 38.6 L 42-54 % Mean Corpuscular Volume 95.5 79-99 fL Mean Corpuscular Hemoglobin 31.2 27.0-33.0 pg Mean Corpuscular Hemoglobin Concent 32.6 32.0-36.0 g/dL Red Cell Distribution Width 14.1 11.0-15.5 % Platelet Count 247 130-400 K/uL Mean Platelet Volume 11.1 H 7.5-10.5 fL Immature Granulocyte % (Auto) 0.6 0-1 % Neutrophils (%) (Auto) 73.4 40.0-77.0 % Lymphocytes (%) (Auto) 16.6 L 21.0-51.0 % Monocytes (%) (Auto) 7.1 3.0-13.0 % Eosinophils (%) (Auto) 1.7 0.0-8.0 % Basophils (%) (Auto) 0.6 0.0-5.0 % Neutrophils # (Auto) 9.2 H 1.8-7.7 K/uL Lymphocytes # (Auto) 2.1 1.0-4.8 K/uL Monocytes # (Auto) 0.9 0.1-1.0 K/uL Eosinophils # (Auto) 0.21 0.00-0.70 K/uL Basophils # (Auto) 0.08 0.00-0.20 K/uL Absolute Immature Granulocyte (auto 0.08 0-1 K/uL Nucleated Red Blood Cells 0.0 0.0-0.19 % Erythrocyte Sedimentation Rate 30 H 0-20 MM/HR Prothrombin Time 10.5 9.6-11.6 SEC Prothromb Time International Ratio 0.99 0.85-1.15 Activated Partial Thromboplast Time 51.5 H 26.3-35.5 SEC Sodium Level 141 136-145 mmol/L Potassium Level 4.5 3.5-5.1 mmol/L Chloride Level 105 101-111 mmol/L Carbon Dioxide Level 30 21-32 mmol/L Blood Urea Nitrogen 35 H 7-18 mg/dL Creatinine 1.8 H 0.5-1.3 mg/dL Glomerular Filtration Rate Calc 40 >90 mL/min Random Glucose 145 H 70-105 mg/dL Lactic Acid Level 1.0 0.8-2.5 mmol/L Total Calcium 8.5 8.5-10.1 mg/dL Magnesium Level 1.90 1.80-2.40 mg/dL Total Bilirubin 0.4 0.2-1.0 mg/dL Direct Bilirubin 0.1 0.0-0.3 mg/dL Aspartate Amino Transf (AST/SGOT) 41 H 10-37 U/L Alanine Aminotransferase (ALT/SGPT) 68 12-78 U/L Alkaline Phosphatase 141 H 50-136 U/L Total Creatine Kinase 103 21-232 U/L Troponin I High Sensitivity 10 4-75 ng/L C-Reactive Protein, Quantitative 2.00 0.5-3.0 mg/L Total Protein 6.8 6.0-8.3 g/dL Albumin 3.2 L 3.5-5.0 g/dL Procalcitonin < 0.05 L 0.05-0.5 ng/mL Whole Blood Glucose 147 H 70-110 MG/DL Assessment: 1. Gangrene affecting the 2nd and 5th digits of the left foot 2. PAD, [place] category five symptoms (left foot) 3. Viral versus bacterial URI 4. Ischemic CVA (right pontine artery) with residual left-sided hemiparesis 5. DM2 6. HTN 7. HLP 8. CAD status post 3V CABG (joseph-lad, SVG-ramus, SVG-RPDA) done on 08/12/2022 9. Paroxysmal SVT status post successful ablation done on 06/03/2023 Plan: 1. PAD, [place] category five symptoms (left foot) -stable -peripheral angiogram I : 70% stenosis left popliteal artery status post successful treatment with orbital atherectomy, balloon angioplasty, drug coated balloon angioplasty, 90% stenosis in the proximal, mid, and distal left anterior tibial artery status post successful treatment with orbital atherectomy, balloon angioplasty and balloon angioplasty of the left dorsalis pedis artery. Residual 100% stenosis in the left peroneal artery and left posterior tibial artery -PE: The 2nd digit of the left foot is black and necrotic down to the base. There was a black ulcer seen on the lateral aspect of the 5th digit in the left foot. The left foot is swollen/edematous. Diminished pulses noted in the left dorsalis pedis and posterior tibial artery. -the patient presents with nonhealing ulcers affecting the 2nd and 5th digits of the left foot, that began after he suffered a traumatic injury to his left foot. The ulcers have progressively worsened over the last three weeks, despite receiving wound care. The 2nd digit is now black and necrotic down to the base. -the above-mentioned findings are secondary to underlying PAD ([place] category five symptoms). The patient will need to undergo amputation of the 2nd digit, but the 5th digit may be salvageable. In order to allow proper wound healing and salvage of the 5th digit, we recommend a peripheral angiogram with intervention to address PAD. The risks and benefits of the procedure were discussed in detail and the patient is in agreement with proceeding. We will tentatively schedule the procedure for tomorrow morning. Please make the patient NPO after midnight. In the meantime he will continue on atorvastatin 20 mg qhs, aspirin 81 mg daily and Xarelto 2.5 mg BID. 2. CAD status post 3V CABG (joseph-lad, SVG-ramus, SVG-RPDA) done on 08/12/2022 -stable -the patient denies chest pain, chest pressure, palpitations, or shortness for breath -the above-mentioned findings indicate clinical stability, as a result the patient will continue on aspirin 81 mg daily, Xarelto 2.5 mg BID and atorvastatin 20 mg qhs 3. Paroxysmal SVT status post successful ablation done on 06/03/2023 -stable and without issue Thank you for this interesting consult and allowing us to participate in the care of your patient. Further recommendations to follow. GLENIS HORTA MD Nov 29, 2024 12:45
[2024-11-29] MEDS: ceFEPime HCL 1 GM VIAL IVPB SCH (13:29)
[2024-11-29 13:44] LABS: SARS-CoV-2, RNA, NAAT NEGATIVE SARS CoV-2 (NEGATIVE)
[2024-11-29 13:46] LABS: INFLUENZA TYPE A Negative For Type A (NEGATIVE); INFLUENZA TYPE B Negative For Type B (NEGATIVE)
[2024-11-29] MEDS: ASPIRIN 81 MG EC TAB PO SCH (13:47)
[2024-11-29] MEDS: ZYVOX 600 MG TAB PO SCH (13:47)
[2024-11-29] MEDS: 0.9%NACL 1000ML 1,000 ML IV SCH (13:48)
--- NOTE | 2024-11-29 15:17 | NUR ---
[facility] Consult: Patient assessed by wound healing team. See wound assessment. Assessment and recommendations provided to primary nurse. Education provided. Addendum: 11/30/24 at 1351 by KIERA FOX RN RN/ Amended: Links added.
--- NOTE | 2024-11-29 19:54 | CONS ---
CONSULTATION NOTE Date of Service: Nov 29, 2024 Reason for Consultation: 2nd toe gangrene left foot history of pad with recent trauma with wheelchair and ulcer ischemic toe the 5th toe same foot. Requesting Physician: Dr. Bolivar HISTORY OF PRESENT ILLNESS: History of PAD and chronic ulcer on 5th toe recent trauma aggravated 2nd toe which became gangrenous. Has been evaluated by molded grid and parts inspector Dr. Horta who is planing an angiogram for tomorrow. REVIEW OF SYSTEMS CONSTITUTIONAL: Denies fever, chills, or fatigue. HEAD/FACE: No signs of trauma. EENT: Denies eye pain, blurred vision, double vision, or light sensitivity. RESPIRATORY: Denies shortness of breath, Positive for cough, congested CARDIOVASCULAR: Denies chest pain, palpitation, syncope. Non palpable pulses left foot GASTROINTESTINAL/ABDOMINAL: Denies abdominal pain, constipation, diarrhea, nausea or vomiting GENITOURINARY: Denies dysuria or hematuria. MUSCULOSKELETAL: Denies joint pain, tenderness, or trauma. INTEGUMENTARY: Gangrene left 2nd toe and ischemic ulcer 5th toe left NEUROLOGICAL/PSYCH: Denies anxiety, depression, heat or cold intolerance. PAST MEDICAL HISTORY: Hypertension, type 2 diabetes mellitus, coronary artery disease with prior history of multivessel CABG, history of NSTEMI, history of recurrent stroke complicated by left-sided hemiparesis of the upper and lower extremity, history of diabetic foot ulcers, chronic kidney disease stage 3 PAST SURGICAL HISTORY: History of coronary artery bypass grafting previously, history of right ankle surgery, previous hx of lower extremity angiogram with angioplasty PAST SOCIAL HISTORY: Denies current smoking, positive for alcohol use, No recerational drugs. FAMILY HISTORY: No contributory Coded Allergies: No Known Drug Allergies (Unverified Allergy, Unknown, 05/25/23) PHYSICAL EXAM EYES: Anicteric. Pupils equal and reactive. HENT: No oral thrush seen, moist Oral mucosa NECK: Supple, no JVD or thyromegaly. LUNGS: Good air entry. No rales, no rhonchi. CARDIOVASCULAR: S1, S2 regular. No murmur heard. non palpable pulses left foot ABDOMEN: Soft, non tender, bowel sounds present, no organomegaly CENTRAL NERVOUS SYSTEM: Awake, alert, oriented x 3. No focal deficits. SKIN: Gangrene 2nd toe. Ischemic ulcer 5th toe left LYMPHATICS: No peripheral lymphadenopathy MUSCULOSKELETAL: No joint swelling, erythema or tenderness. EXTREMITIES: No cyanosis or clubbing BACK: No deformity, no pressure ulcer. GENITOURINARY: No dysuria or hematuria Vital Sign (Last 24 Hours) 11/29/24 11/29/24 11/29/24 16:00 18:43 19:07 Temp 97.5 Pulse 63 Resp 20 B/P (MAP) 157/50 Pulse Ox 96 O2 Delivery N/A Room Air O2 Flow Rate 0 FiO2 21 LABS: Laboratory: Test 11/29/24 16:36 11/29/24 13:18 11/29/24 13:03 11/29/24 08:34 Range/Units Whole Blood Glucose 234 #H 70-110 MG/DL Influenza Type A Antigen Negative For Type A NEGATIVE Influenza Type B Antigen Negative For Type B NEGATIVE SARS-CoV-2, RNA, NAAT NEGATIVE SARS CoV-2 NEGATIVE Lupus Anticoag PTT Mix/Correction Hexagonal Phospholipid Neutralizat White Blood Count 12.5 H 4.8-10.8 K/uL Red Blood Count 4.04 L 4.50-6.20 MIL/uL Hemoglobin 12.6 L 14.0-18.0 g/dL Hematocrit 38.6 L 42-54 % Mean Corpuscular Volume 95.5 79-99 fL Mean Corpuscular Hemoglobin 31.2 27.0-33.0 pg Mean Corpuscular Hemoglobin Concent 32.6 32.0-36.0 g/dL Red Cell Distribution Width 14.1 11.0-15.5 % Platelet Count 247 130-400 K/uL Mean Platelet Volume 11.1 H 7.5-10.5 fL Immature Granulocyte % (Auto) 0.6 0-1 % Neutrophils (%) (Auto) 73.4 40.0-77.0 % Lymphocytes (%) (Auto) 16.6 L 21.0-51.0 % Monocytes (%) (Auto) 7.1 3.0-13.0 % Eosinophils (%) (Auto) 1.7 0.0-8.0 % Basophils (%) (Auto) 0.6 0.0-5.0 % Neutrophils # (Auto) 9.2 H 1.8-7.7 K/uL Lymphocytes # (Auto) 2.1 1.0-4.8 K/uL Monocytes # (Auto) 0.9 0.1-1.0 K/uL Eosinophils # (Auto) 0.21 0.00-0.70 K/uL Basophils # (Auto) 0.08 0.00-0.20 K/uL Absolute Immature Granulocyte (auto 0.08 0-1 K/uL Nucleated Red Blood Cells 0.0 0.0-0.19 % Erythrocyte Sedimentation Rate 30 H 0-20 MM/HR Prothrombin Time 10.5 9.6-11.6 SEC Prothromb Time International Ratio 0.99 0.85-1.15 Activated Partial Thromboplast Time 51.5 H 26.3-35.5 SEC Sodium Level 141 136-145 mmol/L Potassium Level 4.5 3.5-5.1 mmol/L Chloride Level 105 101-111 mmol/L Carbon Dioxide Level 30 21-32 mmol/L Blood Urea Nitrogen 35 H 7-18 mg/dL Creatinine 1.8 H 0.5-1.3 mg/dL Glomerular Filtration Rate Calc 40 >90 mL/min Random Glucose 145 H 70-105 mg/dL Lactic Acid Level 1.0 0.8-2.5 mmol/L Total Calcium 8.5 8.5-10.1 mg/dL Magnesium Level 1.90 1.80-2.40 mg/dL Total Bilirubin 0.4 0.2-1.0 mg/dL Direct Bilirubin 0.1 0.0-0.3 mg/dL Aspartate Amino Transf (AST/SGOT) 41 H 10-37 U/L Alanine Aminotransferase (ALT/SGPT) 68 12-78 U/L Alkaline Phosphatase 141 H 50-136 U/L Total Creatine Kinase 103 21-232 U/L Troponin I High Sensitivity 10 4-75 ng/L C-Reactive Protein, Quantitative 2.00 0.5-3.0 mg/L Total Protein 6.8 6.0-8.3 g/dL Albumin 3.2 L 3.5-5.0 g/dL Procalcitonin < 0.05 L 0.05-0.5 ng/mL DIAGNOSTICS / RADIOLOGY: LEFT SECOND TOE RADIOGRAPHS - 2-3 VIEWS INDICATION: Second toe necrosis COMPARISON: None FINDINGS: AP, lateral views. No evidence for acute fracture or subluxation. No evidence for periosteal reaction, cortical erosive changes, or any abnormal subperiosteal bone resorption. Extensive arterial wall calcific plaque. IMPRESSION: No evidence for osteomyelitis. ASSESSMENT: Gangrene 2nd toe left Ischemic ulcer 5th toe left PAD PLAN: Follow up Cardiovascular intervention and recommendations. Continue local wound care betadine dressings. and medical management Will need future amputation of 2nd toe and 5th toe ulcer debridement. VENECIA TORRES DPM Nov 29, 2024 19:54
--- NOTE | 2024-11-29 20:00 | NUR ---
BEDSIDE SWALLOW EVAL COMPLETED. + s/s of aspiration. Recommend NPO until MBSS to determine safest and least restrictive diet. COMPENSATORY STRATEGIES 1. Sit upright 2. lisa good oral hygiene HEADRIG SAWYER reviewed results and recommendations with patient, family, and nurse Aby. HEADRIG SAWYER educated patient/family on risk and consequences of aspiration. Speech therapy warranted at this time to address dysphagia. All questions answered. RECOMMENDATIONS: Dysphagia therapy 1-3x week to improve oral and pharyngeal swallow: LTG#1: Pt will tolerate least restrictive diet to meet nutrition/hydration with no s/s of aspiration. LTG#2: Skilled education Pt/family/staff STG#1: Pt will participate in laryngeal elevation/excursion exercises with 90% accuracy. STG#2: Pt will participate in tongue based retraction exercises with 90% accuracy with min asst. STG#3: Pt will participate in oral motor exercises with 90% accuracy with min asst. STG#4 Pt will tolerate PO trials with no overt s/s of aspiration. STG#5: Skilled education with pt/family/staff Addendum: 11/29/24 at 2124 by NELSON CHAMPION Amended: Links added.
[2024-11-29] MEDS: atorVAStatin 20 MG TABLET PO SCH (21:00)
[2024-11-29] MEDS ORDERED: atorVAStatin 20 MG TABLET PO SCH (21:00)
[2024-11-29] MEDS: doCUSate SODIUM 100 MG CAP PO SCH (21:00)
[2024-11-29] MEDS ORDERED: RIVAROXABAN 2.5 MG TABLET PO SCH (21:00)
[2024-11-29] MEDS: RIVAROXABAN 2.5 MG TABLET PO SCH (21:00)
[2024-11-30] VITALS (18 sets, daily range): BP systolic 111–169; BP diastolic 36–74; PULSE 54–86; RESP 16–24; TEMP 97.6–98.4; O2SAT 90–100
[2024-11-30] MEDS: levoTHYROxine 25 MCG TABLET PO SCH (02:50)
[2024-11-30] MEDS: LINEZOLID 600 MG/ISO-OSM 300 ML IV SCH (02:51)
[2024-11-30 03:38] LABS: HEMATOCRIT 32.7 % (42-54); MEAN CORPUSCULAR HEMOGLOBIN 31.3 pg (27.0-33.0); MEAN CORPUSCULAR HGB CONC 33.3 g/dL (32.0-36.0); RED BLOOD CELL COUNT(AUTO) 3.48 MIL/uL (4.50-6.20); RED CELL DISTRIBUTION WIDTH 13.9 % (11.0-15.5); WHITE BLOOD COUNT (AUTO) 8.9 K/uL (4.8-10.8)
[2024-11-30 03:39] LABS: BASOPHILS # (AUTO) 0.05 K/uL (0.00-0.20); BASOPHILS % (AUTO) 0.6 % (0.0-5.0); EOSINOPHILS # (AUTO) 0.27 K/uL (0.00-0.70); IMMATURE GRANULOCYTE ABSOLUTE 0.05 K/uL (0-1); LYMPHOCYTES # (AUTO) 2.1 K/uL (1.0-4.8); LYMPHOCYTES % (AUTO) 23.8 % (21.0-51.0); MONOCYTES # (AUTO) 0.8 K/uL (0.1-1.0); NEUTROPHILS # (AUTO) 5.6 K/uL (1.8-7.7); PLATELET COUNT (AUTO) 205 K/uL (130-400)
--- NOTE | 2024-11-30 03:39 | CONS ---
INFECTIOUS DISEASE CONSULTATION NOTE DATE OF SERVICE: 11/29/2024 REQUESTING PHYSICIAN: Braydon Bolivar MD REASON FOR CONSULTATION: Left second toe osteomyelitis and gangrene. HISTORY OF PRESENT ILLNESS: A 74-year-old male with history of hypertension, diabetes mellitus, presented to the hospital with left second toe necrosis. No fever or chills. WBC was elevated at 12,000. No nausea, vomiting. No abdominal pain. X-ray of the left foot is unremarkable. PAST MEDICAL HISTORY: * Hypertension. * Diabetes mellitus. * Coronary artery disease. * Obesity. * Myocardial infarction. * CVA. * Diabetic foot ulcer with chronic kidney disease. * Skin cancer. PAST SURGICAL HISTORY: * CABG. * Right ankle surgery. * Peripheral angiogram. * Cardiac catheterization. * Skin cancer removal from the face. ALLERGIES: No known drug allergy. CURRENT MEDICATIONS: Include: * Vancomycin. * Cefepime. * Insulin. * Tylenol. * Aspirin. * . SOCIAL HISTORY: Lives with . No alcohol, tobacco, or illicit drug use. FAMILY HISTORY: Positive for diabetes mellitus. REVIEW OF SYSTEMS: Greater than 10 systems were reviewed, negative except as documented above. PHYSICAL EXAMINATION: GENERAL: Elderly male, awake, not in distress, afebrile to touch. VITAL SIGNS: Temperature 97.9, pulse 63, respirations 16, BP 131/43. EYES: No icterus. Pupils equal and reactive. HENT: No oral lesions seen. Moist oral mucosa. NECK: Supple. No JVD or thyromegaly. LUNGS: Good air entry. No rales, no rhonchi. CARDIOVASCULAR: S1, S2 regular. No murmur heard. ABDOMEN: Full, soft. Bowel sound is present. CENTRAL NERVOUS SYSTEM: Awake, alert, oriented x 3. No focal deficits. SKIN: No rashes. No itchiness. LYMPHATIC: There is left inguinal lymphadenopathy. BACK: No deformity. No pressure ulcer. EXTREMITIES: Gangrene involving the left second toe. LABORATORY DATA: Sodium 141, potassium 4.5, BUN 35, creatinine 1.8. WBC 12.5, hemoglobin 12.6, platelets 247. RADIOLOGY: X-ray of the left foot unremarkable. Chest x-ray unremarkable. ASSESSMENT: A 74-year-old male presenting with left foot pain, swelling. CURRENT PROBLEMS: Include: * Left second toe gangrene. * Diabetic foot ulcer. * Left foot osteomyelitis. * Chronic renal disease. * Obesity. * Diabetes mellitus. PLAN: * Discontinue vancomycin. * Start the patient on linezolid. * Continue cefepime. * Follow up cultures. * Continue pain management. * Continue nutritional support. * Continue DVT prophylaxis. * The patient will be followed up closely. Thank you for allowing me to participate in the care of this patient. TID: [id number] RECEIPT: [id number]
[2024-11-30 04:00] LABS: ALBUMIN 2.5 g/dL (3.5-5.0); BILIRUBIN,TOTAL 0.5 mg/dL (0.2-1.0); CREATININE 1.6 mg/dL (0.5-1.3); MAGNESIUM 1.8 mg/dL (1.80-2.40); POTASSIUM 4.5 mmol/L (3.5-5.1)
[2024-11-30 04:02] LABS: PROTHROMBIN TIME 10.6 SEC (9.6-11.6)
[2024-11-30 04:03] LABS: PARTIAL THROMBOPLASTIN TIME 45.1 SEC (26.3-35.5)
--- NOTE | 2024-11-30 05:05 | EKG ---
[facility] Test Date: 2024-11-30 Test Time: 05:09:41 Pat Name: PILY TEJADA Department: [facility] Room: 417 Gender: Male Alarm Mechanism Adjuster: [id number] : 1950 Requested By: GLENIS GREWAL Order Number: [id number] Reading MD: Trang Bear Measurements Intervals [place] Rate: 55 P: 23 [place]: 184 QRS: 42 QRSD: 92 T: 48 QT: 444 QTc: 424 Interpretive Statements Sinus rhythm Compared to ECG 11/29/2024 08:36:57 Sinus rhythm no longer present Electronically Signed On 11-30-2024 14:35:51 COLOR ROOM ATTENDANT by Trang Bear Please click the below link to view image of tracing.
--- NOTE | 2024-11-30 05:19 | NUR ---
nurse note patient alert and oriented times person. plan of care discussed with him and his and they verbalized understanding. wound pictures were taken via ipad of his left 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 necrosis. Betadine cast applied by patient's on both toes. left at 20:30. Respiratory therapist placed the cpap on. patient's left arm is contracted and left arm and left leg are weak. Silvia and I clipped him from the umbilicus to his ankles. We bathed him and have been moving him on his sides to prevent skin breakdown. waffle mattress applied at 21:00. call light within reach, bed alarm on, 2 side rails up. will continue to monitor patient.
[2024-11-30] MEDS: MAGNESIUM 2GM PREMIX 50ML 50 ML IV SCH (05:48)
[2024-11-30] MEDS ORDERED: VANCOMYCIN 1G/250ML KIT 250 ML IV SCH (08:00)
[2024-11-30] MEDS: PANTOPrazole 40 MG TAB DR PO SCH (08:48)
[2024-11-30] MEDS: Vitamin B Complex/Vit C/Folic Acid PO SCH (08:48)
[2024-11-30] MEDS: tamSULOsin HCL 0.4 MG CAP.ER.24H PO SCH (08:48)
[2024-11-30] MEDS ORDERED: ASPIRIN 81 MG EC TAB PO SCH (09:00)
[2024-11-30] MEDS ORDERED: LIDOCAINE HCL 400MG/20ML VIAL ONE (12:04)
[2024-11-30] MEDS ORDERED: IODIXANOL 320 MG/ML 100 ML VIAL ONE ×2 (12:04→13:08)
[2024-11-30] MEDS ORDERED: HEParin-NS 1,000 UNIT/500 ML 1,000 ML IV ONE (12:04)
[2024-11-30] MEDS ORDERED: NITROGLYCERIN 50MG VIAL ONE ×2 (12:04→13:22)
[2024-11-30] MEDS ORDERED: HEParin 10,000 UNIT/10ML (1,000 UNIT/ML) VIAL ONE (12:04)
[2024-11-30] MEDS ORDERED: FENTanyl CITRate PF 50 MCG/1 ML 2ML VIAL ONE (12:19)
[2024-11-30] MEDS ORDERED: MIDAZOLAM HCL 1 MG/ML 2ML VIAL ONE ×2 (12:19→13:44)
[2024-11-30] MEDS ORDERED: cloPIDOgrel 300MG TAB ONE (13:02)
[2024-11-30] MEDS ORDERED: HEParin-NS 1,000 UNIT/500 ML 500 ML IV ONE (13:07)
[2024-11-30] MEDS ORDERED: GLUCAGON 1MG KIT 1 MG ML IM PRN (15:00)
[2024-11-30] MEDS ORDERED: DEXTROSE 50%-WATER 50 ML DISP.SYRIN IV PRN (15:00)
[2024-11-30] MEDS: 0.9%NACL 1000ML 1,000 ML IV SCH (15:29)
--- NOTE | 2024-11-30 15:39 | PRN ---
Procedure:Peripheral Angiogram Procedure Note Procedure Note: Peripheral Angiogram Date/Time of Service: 11/30/2024 Referring Physician: Hospitalist Procedures Performed: Lower abdominal aortogram, peripheral angiogram with lower extremity arterial runoff, orbital atherectomy, balloon lithotripsy, and balloon angioplasty of the proximal, mid, distal left anterior tibial artery, balloon lithotripsy and balloon angioplasty of the left dorsalis pedis artery Indications for Procedure: PAD, Titus category five symptoms (left foot) Dry gangrene affecting the 2nd digit of the left foot Nonhealing ulcer on the 5th digit of the left foot PAD s/p multiple peripheral interventions of the arteries in the bilateral lower extremities, the most recent of which was in 2022 CAD s/p CABG Description of Procedure: [After informed consent was obtained the patient was prepped and draped in the usual sterile fashion a 6 Irish arterial sheath with a hemostatic valve was inserted into the right common femoral artery using a modified Salinger technique on the first past front wall puncture. A 5 Irish Omni Flush catheter was then advanced over a soft angled Glidewire into the abdominal aorta and a lower abdominal aortogram with runoff was obtained. The findings are listed below. The Omni flush catheter was then advanced to the left common femoral artery and a left lower extremity arteriogram was obtained. The findings are listed below.] Findings: Lower abdominal aorta: patent Right common iliac artery: patent Right external iliac artery: patent Right internal iliac artery: patent Right common femoral artery: patent Right profunda artery: patent Left common iliac artery: patent Left external iliac artery: patent Left internal iliac artery: patent Left common femoral artery: patent Left profunda artery: patent Left superficial femoral artery: patent, with diffuse 30% stenosis in the mid and distal segments of the artery Left popliteal artery: patent Left anterior tibial artery: Diffuse 90% stenosis in the proximal segment of the artery, 100% stenosis (FINISH OPENER = 120mm) in the mid segment of the artery. The artery reconstitutes distally via collateral blood flow Left dorsalis pedis artery: 90% stenosis in the proximal segment of the artery Left tibioperoneal artery: 50% stenosis in the mid segment of the artery Left peroneal artery: 100% stenosis in the mid segment of the artery. The artery does not reconstitute distally Left posterior tibial artery: 100% stenosis (FINISH OPENER = 240mm) in the proximal segment of the artery. The artery does not reconstitute distally Pedal arch: Incomplete, with slow single-vessel runoff supplying the anterior segment of the left pedal arch. Intervention: After reviewing the above-mentioned findings the decision was made to intervene on the left anterior tibial artery and left dorsalis pedis artery. The soft angled Glidewire was inserted into the Omni flush catheter and was advanced to the left popliteal artery. We then removed the Omni flush catheter and exchanged the short 6 Irish arterial sheath for a 65 cm 6 Irish destination arterial sheath, which was then placed in the mid left superficial femoral artery. We then administered heparin 75 units/kg x1 dose and clopidogrel 600 mg x 1 dose. We then advanced a 0.014 whisper guidewire and 0.014 quick cross catheter across the areas stenosis and into the mid left anterior tibial artery. We then exchanged the 0.014 whisper guidewire for a 0.014 miracle 6 guidewire. We then advanced the miracle guidewire in quick cross catheter across the areas stenosis and into the distal left dorsalis pedis artery. We then removed the miracle guidewire and injected contrast to ensure that were in the true lumen of the left dorsalis pedis artery. We then advanced a Viper wire through the quick cross catheter and into the distal left dorsalis pedis artery. We then removed the quick cross catheter and performed multiple passes of orbital atherectomy (CSI 1.25 solid) in the proximal, mid, and distal segments of the left anterior tibial artery. We then performed balloon lithotripsy (shockwave 2.5 by 80 mm) in the proximal, mid, and distal left anterior tibial artery and proximal left dorsalis pedis artery. We then performed balloon angioplasty (chocolate 3.0 by 120 mm) in the proximal, mid, and distal left anterior tibial artery and proximal left dorsalis pedis artery. Repeat angiography then revealed a widely patent left anterior tibial artery and left dorsalis pedis artery, without dissection, or perforation, and brisk single-vessel runoff supplying the anterior segments of the left pedal arch. The Viper wire and 65 cm six Irish destination arterial sheath were then removed and the arteriotomy site in the right common femoral artery was closed using a six Irish Angio-Seal device. The patient tolerated the procedure well and without issue. Estimated Blood Loss: [50]mL Complications: [ None] Conclusion: 1. PAD, 90% stenosis in the proximal left anterior tibial artery, 100% stenosis in the mid left anterior tibial artery status post successful treatment with orbital atherectomy, balloon lithotripsy, and balloon angioplasty and 90% stenosis in the proximal left dorsalis pedis artery status post successful treatment with balloon lithotripsy and balloon angioplasty, resulting in widely patent arteries, without dissection, or perforation, and brisk single-vessel runoff supplying the anterior and posterior segments of the left pedal arch. 2. Residual PAD, 100% stenosis in the mid left peroneal artery and 1% stenosis in the proximal left posterior tibial artery. Neither artery reconstitutes distally. 3. Dry gangrene affecting the 2nd digit of the left foot 4. Nonhealing ulcer on the 5th digit of the left foot 5. PAD s/p multiple peripheral interventions of the arteries in the bilateral lower extremities, the most recent of which was in 2022 6. CAD s/p CABG Recommendations/Instructions: 1. Continue goal-directed medical therapy. 2. Aspirin 81 mg daily and xarelto 2.5 mg BID. 3. Groin precautions 4. 4 hours of bedrest 5. Start NS at 100 mL/hour x3 hours. 6. Okay to proceed with surgical amputation of the 2nd digit of the left foot. Continue with the aggressive wound care GLENIS GREWAL MD Nov 30, 2024 15:39
--- NOTE | 2024-11-30 16:38 | HMCIMG ---
CHEST 1VW HISTORY: Preop COMPARISON: 11/29/2024 FINDINGS: A frontal projection of the chest was obtained. Mild bilateral pulmonary infiltrates are seen may be related to mild pulmonary vascular congestion with possible superimposed pneumonitis. Poststernotomy changes are seen. The heart is enlarged. Degenerative changes of the thoracolumbar spine are present. Aortic calcifications are seen. IMPRESSION: 1. Mild bilateral pulmonary infiltrates are seen may be related to mild pulmonary vascular congestion with possible superimposed pneumonitis.
--- NOTE | 2024-11-30 16:46 | PN ---
INFECTIOUS DISEASE PROGRESS NOTE Date of Service: Nov 30, 2024 SUBJECTIVE: This is a 74-year-old male patient who was brought to the emergency room for evaluation of necrosis to the left 2nd toe. During visit today patient is awake, alert but unable to answer questions. Family member present at bedside. Patient will be undergoing a peripheral angiogram later today. Patient is afebrile, temperature is 97.9 and the WBC has trended down to 8.9 today from 12.5 yesterday. We will continue on linezolid and cefepime IV. No reports of nausea or vomiting. No other issues reported at this time. PHYSICAL EXAM EYES: Anicteric. Pupils equal and reactive. HENT: No oral thrush seen, moist Oral mucosa NECK: Supple, no JVD or thyromegaly. LUNGS: Good air entry. No rales, no rhonchi. CARDIOVASCULAR: S1, S2 regular. No murmur heard. ABDOMEN: Soft, non tender, bowel sounds present, no organomegaly. CENTRAL NERVOUS SYSTEM: Awake, alert, oriented x 1. SKIN: No rashes, no swelling. Left 2nd toe gangrene and left 5th toe ischemic ulcer. LYMPHATICS: No peripheral lymphadenopathy MUSCULOSKELETAL: No joint swelling, erythema or tenderness. EXTREMITIES: No cyanosis or clubbing. History of stroke with left-sided hemiparesis. BACK: No deformity, no pressure ulcer. GENITOURINARY: No dysuria or hematuria Vital Sign (Last 12 Hours) 11/30/24 11/30/24 11/30/24 11/30/24 06:52 06:55 07:47 08:24 Temp 97.9 Pulse 59 60 72 55 Resp 20 20 24 18 B/P (MAP) 111/36 Pulse Ox 94 O2 Delivery N/A Room Air Room Air FiO2 21 28 Intake & Output (last 24hrs) 11/29/24 11/29/24 11/30/24 15:00 23:00 07:00 Intake Total 1200.0 ml Output Total 400 ml Balance 800.0 ml LABS: Laboratory: Test 11/30/24 16:19 11/30/24 03:26 11/29/24 13:18 11/29/24 13:03 Range/Units Whole Blood Glucose 168 #H 70-110 MG/DL White Blood Count 8.9 # 4.8-10.8 K/uL Red Blood Count 3.48 L 4.50-6.20 MIL/uL Hemoglobin 10.9 L 14.0-18.0 g/dL Hematocrit 32.7 L 42-54 % Mean Corpuscular Volume 94.0 79-99 fL Mean Corpuscular Hemoglobin 31.3 27.0-33.0 pg Mean Corpuscular Hemoglobin Concent 33.3 32.0-36.0 g/dL Red Cell Distribution Width 13.9 11.0-15.5 % Platelet Count 205 130-400 K/uL Mean Platelet Volume 10.7 H 7.5-10.5 fL Immature Granulocyte % (Auto) 0.6 0-1 % Neutrophils (%) (Auto) 63.0 40.0-77.0 % Lymphocytes (%) (Auto) 23.8 21.0-51.0 % Monocytes (%) (Auto) 9.0 3.0-13.0 % Eosinophils (%) (Auto) 3.0 0.0-8.0 % Basophils (%) (Auto) 0.6 0.0-5.0 % Neutrophils # (Auto) 5.6 1.8-7.7 K/uL Lymphocytes # (Auto) 2.1 1.0-4.8 K/uL Monocytes # (Auto) 0.8 0.1-1.0 K/uL Eosinophils # (Auto) 0.27 0.00-0.70 K/uL Basophils # (Auto) 0.05 0.00-0.20 K/uL Absolute Immature Granulocyte (auto 0.05 0-1 K/uL Nucleated Red Blood Cells 0.0 0.0-0.19 % Prothrombin Time 10.6 9.6-11.6 SEC Prothromb Time International Ratio 1.00 0.85-1.15 Activated Partial Thromboplast Time 45.1 H 26.3-35.5 SEC Sodium Level 140 136-145 mmol/L Potassium Level 4.5 3.5-5.1 mmol/L Chloride Level 109 101-111 mmol/L Carbon Dioxide Level 26 21-32 mmol/L Blood Urea Nitrogen 33 H 7-18 mg/dL Creatinine 1.6 H 0.5-1.3 mg/dL Glomerular Filtration Rate Calc 46 >90 mL/min Random Glucose 100 70-105 mg/dL Total Calcium 8.3 L 8.5-10.1 mg/dL Magnesium Level 1.80 1.80-2.40 mg/dL Total Bilirubin 0.5 # 0.2-1.0 mg/dL Aspartate Amino Transf (AST/SGOT) 18 10-37 U/L Alanine Aminotransferase (ALT/SGPT) 43 # 12-78 U/L Alkaline Phosphatase 104 # 50-136 U/L Total Protein 6.0 6.0-8.3 g/dL Albumin 2.5 #L 3.5-5.0 g/dL Influenza Type A Antigen Negative For Type A NEGATIVE Influenza Type B Antigen Negative For Type B NEGATIVE SARS-CoV-2, RNA, NAAT NEGATIVE SARS CoV-2 NEGATIVE Lupus Anticoag PTT Mix/Correction Hexagonal Phospholipid Neutralizat Test 11/29/24 11:44 11/29/24 08:34 Range/Units Anti-Nuclear Antibody Screen Negative Negative Anti-Nuclear Antibody Interpret LANA-1 Antibody SS-A/Ro Antibody SS-B/La Antibody Sm (Encarnacion) IgG Antibody, Quant PBX INSPECTOR IgG Antibody, Quantitative Scl-70 (Scleroderma) Antibody Anti-Double Strand DNA Antibody Chromatin Antibody Anti-Centromere IgG Antibody Erythrocyte Sedimentation Rate 30 H 0-20 MM/HR Lactic Acid Level 1.0 0.8-2.5 mmol/L Direct Bilirubin 0.1 0.0-0.3 mg/dL Total Creatine Kinase 103 21-232 U/L Troponin I High Sensitivity 10 4-75 ng/L C-Reactive Protein, Quantitative 2.00 0.5-3.0 mg/L Procalcitonin < 0.05 L 0.05-0.5 ng/mL ASSESSMENT: Left 2nd toe gangrene. Left 5th toe ischemic ulcer. Left foot cellulitis. Leukocytosis, resolving. Acute on chronic renal failure. Diabetes mellitus. History of stroke with left-sided hemiparesis. PLAN: Continue linezolid. Continue cefepime. Continue GI prophylaxis. Continue pain management. Continue monitoring glucose levels. Avoid nephrotoxic medications. We will follow up on the cultures. Patient has been evaluated by Cardiology and is pending a peripheral angiogram for today. This case was reviewed and discussed with my supervising physician and the above assessment and plan was formulated and agreed upon. ATTESTATION BY PHYSICIAN I have seen and examined the patient. I reviewed the documentation, medical decision making, and treatment plan as noted by the mid-level provider above. I agree with the findings and plan of care. ANGELINA VILLALBA MD, [facility] Nov 30, 2024 16:46
--- NOTE | 2024-11-30 17:21 | PN ---
[facility] PROGRESS NOTE Date of Service: Nov 30, 2024 Time of Service: 17:20 SUBJECTIVE: 11/30 patient seen at bedside, no acute events overnight. Creatinine improved from 1.8 down to 1.6, hemoglobin decreased from 12.6 down to 10.9, remainder of his labs are relatively unremarkable. Pending possible peripheral angiogram, continue broad-spectrum IV antibiotics managed by Infectious Disease. REVIEW OF SYSTEMS 12 point review of systems negative unless noted in HPI PHYSICAL EXAM GENERAL APPEARANCE: The patient is awake, alert, and oriented, in no acute cardiopulmonary distress. NEUROLOGICAL: Cranial nerves II-XII grossly intact. Motor is 5/5 in bilateral upper and lower extremities proximal to distal. No sensory deficits. HEENT: Face is symmetric. Pupils are equal and reactive. Extraocular movements are intact. NECK: Supple. No JVD. No thyromegaly. No submental, submandibular, pre- /postauricular, occipital or supraclavicular lymphadenopathy. CHEST: Normal chest expansion. No Telemetry. LUNGS: Absence of any rales, rhonchi or any wheezing. CARDIOVASCULAR: Regular. S1 and S2 normal. No appreciable rubs, murmurs or gallops. ABDOMEN: Soft, nontender, and nondistended. There is no rebound, voluntary guarding, or rigidity. : Deferred. No López. EXTREMITIES: Non-edematous and not cyanotic. No clubbing. Good capillary refill. SKIN: No skin breakdown. LABS: Laboratory: Test 11/30/24 16:19 11/30/24 03:26 11/29/24 13:18 11/29/24 13:03 Range/Units Whole Blood Glucose 168 #H 70-110 MG/DL White Blood Count 8.9 # 4.8-10.8 K/uL Red Blood Count 3.48 L 4.50-6.20 MIL/uL Hemoglobin 10.9 L 14.0-18.0 g/dL Hematocrit 32.7 L 42-54 % Mean Corpuscular Volume 94.0 79-99 fL Mean Corpuscular Hemoglobin 31.3 27.0-33.0 pg Mean Corpuscular Hemoglobin Concent 33.3 32.0-36.0 g/dL Red Cell Distribution Width 13.9 11.0-15.5 % Platelet Count 205 130-400 K/uL Mean Platelet Volume 10.7 H 7.5-10.5 fL Immature Granulocyte % (Auto) 0.6 0-1 % Neutrophils (%) (Auto) 63.0 40.0-77.0 % Lymphocytes (%) (Auto) 23.8 21.0-51.0 % Monocytes (%) (Auto) 9.0 3.0-13.0 % Eosinophils (%) (Auto) 3.0 0.0-8.0 % Basophils (%) (Auto) 0.6 0.0-5.0 % Neutrophils # (Auto) 5.6 1.8-7.7 K/uL Lymphocytes # (Auto) 2.1 1.0-4.8 K/uL Monocytes # (Auto) 0.8 0.1-1.0 K/uL Eosinophils # (Auto) 0.27 0.00-0.70 K/uL Basophils # (Auto) 0.05 0.00-0.20 K/uL Absolute Immature Granulocyte (auto 0.05 0-1 K/uL Nucleated Red Blood Cells 0.0 0.0-0.19 % Prothrombin Time 10.6 9.6-11.6 SEC Prothromb Time International Ratio 1.00 0.85-1.15 Activated Partial Thromboplast Time 45.1 H 26.3-35.5 SEC Sodium Level 140 136-145 mmol/L Potassium Level 4.5 3.5-5.1 mmol/L Chloride Level 109 101-111 mmol/L Carbon Dioxide Level 26 21-32 mmol/L Blood Urea Nitrogen 33 H 7-18 mg/dL Creatinine 1.6 H 0.5-1.3 mg/dL Glomerular Filtration Rate Calc 46 >90 mL/min Random Glucose 100 70-105 mg/dL Total Calcium 8.3 L 8.5-10.1 mg/dL Magnesium Level 1.80 1.80-2.40 mg/dL Total Bilirubin 0.5 # 0.2-1.0 mg/dL Aspartate Amino Transf (AST/SGOT) 18 10-37 U/L Alanine Aminotransferase (ALT/SGPT) 43 # 12-78 U/L Alkaline Phosphatase 104 # 50-136 U/L Total Protein 6.0 6.0-8.3 g/dL Albumin 2.5 #L 3.5-5.0 g/dL Influenza Type A Antigen Negative For Type A NEGATIVE Influenza Type B Antigen Negative For Type B NEGATIVE SARS-CoV-2, RNA, NAAT NEGATIVE SARS CoV-2 NEGATIVE Lupus Anticoag PTT Mix/Correction Hexagonal Phospholipid Neutralizat Test 11/29/24 11:44 11/29/24 08:34 Range/Units Anti-Nuclear Antibody Screen Negative Negative Anti-Nuclear Antibody Interpret LANA-1 Antibody SS-A/Ro Antibody SS-B/La Antibody Sm (Encarnacion) IgG Antibody, Quant SHRIMP PEELER IgG Antibody, Quantitative Scl-70 (Scleroderma) Antibody Anti-Double Strand DNA Antibody Chromatin Antibody Anti-Centromere IgG Antibody Erythrocyte Sedimentation Rate 30 H 0-20 MM/HR Lactic Acid Level 1.0 0.8-2.5 mmol/L Direct Bilirubin 0.1 0.0-0.3 mg/dL Total Creatine Kinase 103 21-232 U/L Troponin I High Sensitivity 10 4-75 ng/L C-Reactive Protein, Quantitative 2.00 0.5-3.0 mg/L Procalcitonin < 0.05 L 0.05-0.5 ng/mL Current Medications Medications (Trade) Dose Ordered Sig/Jsesi Route PRN Reason Start Time Stop Time Status Last Admin Dose Admin Acetaminophen (TYLenol 325MG TAB) 650 mg Q6H PRN PO MILD PAIN (1-3) 11/29/24 11:30 12/29/24 11:29 Aspirin (Aspirin 81mg Ec Tab) 81 mg DAILY PO 11/29/24 13:00 12/29/24 12:59 11/30/24 08:48 81 MG Aspirin (Aspirin 81mg Ec Tab) 81 mg DAILY PO 11/30/24 09:00 11/29/24 13:13 DC Atorvastatin Calcium (LIPItor 20MG) 20 mg HS PO 11/29/24 21:00 11/29/24 13:14 DC Atorvastatin Calcium (LIPItor 20MG) 20 mg HS PO 11/29/24 21:00 12/29/24 20:59 Budesonide (Pulmicort 0.5 Mg/2ml) 0.5 mg BIDRESP IH 11/29/24 11:00 12/29/24 10:59 11/30/24 06:52 0.5 MG Cefepime HCl (MAXipime 1 GM vial) 1 gm Q24H IVPB 11/29/24 13:00 12/09/24 12:59 11/29/24 13:29 1 GM Dextrose (D50w) 50 ml AD PRN IV HYPOGLYCEMIA PROTOCOL 11/30/24 15:00 12/30/24 14:59 Docusate Sodium (COLace 100MG CAP) 100 mg HS PO 11/29/24 21:00 12/29/24 20:59 Glucagon (Glucagon 1mg Kit) 1 mg AD PRN IM HYPOGLYCEMIA PROTOCOL 11/30/24 15:00 12/30/24 14:59 Insulin Human Regular (humuLIN R 100 UNIT/ML 3ML) INSULIN SLIDING SCAL... ACHS SQ 11/29/24 11:30 12/29/24 11:29 11/29/24 20:41 4 UNIT Ipratropium [place] (AtrovENT UD) 0.5 mg Q6H PRN IH SHORTNESS OF BREATH 11/29/24 17:30 12/29/24 17:29 11/30/24 06:52 0.5 MG Ipratropium [place] (AtrovENT UD) 1 mg Q6H PRN IH SHORTNESS OF BREATH 11/29/24 11:30 11/29/24 12:07 DC Lactated Ringer's 1,000 ml @ 50 mls/hr Q20H IV 11/29/24 11:30 11/29/24 13:35 DC Levothyroxine Sodium (SYNTHroid 25MCG TAB) 25 mcg SYN PO 11/30/24 06:30 12/30/24 06:29 Linezolid 300 ml @ 300 mls/hr Q12H IV 11/30/24 03:00 12/21/24 02:59 11/30/24 15:28 300 MLS/HR Linezolid (Zyvox) 600 mg Q12H PO 11/29/24 14:00 11/30/24 02:37 DC 11/29/24 13:47 600 MG Magnesium Sulfate 50 ml @ 0 mls/hr PROTOCOL IV 11/29/24 12:00 12/29/24 11:59 11/30/24 05:48 15 MLS/HR Ondansetron HCl (zoFRAN 4MG INJ) 4 mg Q6H PRN IVP NAUSEA/VOMITING 11/29/24 11:30 12/29/24 11:29 Pantoprazole Sodium (PROTonix 40MG TAB) 40 mg DAILY PO 11/30/24 09:00 12/30/24 08:59 11/30/24 08:48 40 MG Rivaroxaban (Xarelto) 2.5 mg BID PO 11/29/24 21:00 11/29/24 13:13 DC Rivaroxaban (Xarelto) 2.5 mg BID PO 11/29/24 21:00 12/29/24 20:59 11/30/24 08:48 2.5 MG Sodium Chloride 1,000 ml @ 75 mls/hr [id number] IV 11/29/24 13:00 12/29/24 12:59 11/30/24 15:41 75 MLS/HR Sodium Chloride 1,000 ml @ 100 mls/hr Q10H IV 11/30/24 15:00 11/30/24 17:59 11/30/24 15:29 100 MLS/HR Tamsulosin HCl (FloMAX) 0.4 mg DAILY PO 11/30/24 09:00 12/30/24 08:59 11/30/24 08:48 0.4 MG Vancomycin HCl 250 ml @ 125 mls/hr Q24H IV 11/30/24 08:00 11/29/24 13:18 DC Vancomycin HCl (Vancomycin Protocol) 1 each AD IV 11/29/24 11:30 11/29/24 13:09 DC Vitamin B Complex/ Vit C/Folic Acid (Nephrovite Tablet) 1 cap DAILY PO 11/30/24 09:00 12/30/24 08:59 11/30/24 08:48 1 CAP DIAGNOSTICS / RADIOLOGY: [ ] ASSESSMENT: Left 2nd toe necrosis with progressive cellulitis, POA 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 foot, POA Underlying peripheral arterial disease, POA Leukocytosis, POA Underlying history of type 2 diabetes mellitus, POA 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, POA History of lower extremity DVT, POA History of multivessel coronary artery disease with prior history of CABG, POA History of NSTEMI, POA History of SVT, POA Chronic kidney disease stage 3, POA Hypertension, POA Hyperlipidemia, POA Debility, POA History of oropharyngeal dysphagia, POA Hx of Hypothyroidism, POA PLAN: Patient will be admitted to medical-surgical floor under telemetry monitoring We will keep patient on broad-spectrum antibiotics with renally dosed IV vanco mycin and cefepime given leukocytosis on presentation and underlying cellulitis with necrotic 2nd toe Appreciate recommendations by Dr. Horta with Cardiology, plan is for lower extremity angiogram tomorrow morning Appreciate recommendations by Dr. Sarabia, with Podiatry, there is tentative plans for amputation of the 2nd toe on Wednesday next week following lower extremity angiogram We will have Infectious Disease follow up with this patient We will follow up blood cultures, ESR, CRP, procalcitonin Patient will be placed on sliding scale insulin a.c. and HS Hold home medications were reconciled and updated Patient will be placed on aspiration precautions, he does have pooling of secretions from underlying history of stroke, we will obtain speech evaluation to rule out any silent aspiration, obtain chest x-ray as well Patient will be placed on Pulmicort twice daily and Atrovent inhalation q.6 hours p.r.n. All labs will be repeated in the morning anticipate hospitalization for greater than 72 hours Patient has underlying history of strokes and DVT, APTT is noted to be prolonged and patient is on small dose of Xarelto 2.5 mg b.i.d., we will obtain workup for antiphospholipid syndrome including MILVIA screen, beta two glycoprotein antibody, lupus anticoagulant and cardiolipin antibody Disposition: Pending improvement in clinical status JUDIT SLATER MD Nov 30, 2024 17:21
--- NOTE | 2024-11-30 17:47 | NUR ---
DCP Patient returned from procedure and sleepy from anesthesia. Emily Tran, Spouse [phone] provided patient history. lives in house with two steps entrance and tub. [facility] patient is retired and remains independent. [facility] he is semi-assist ADL's. [facility] he has a shower chair, wheelchair and hospital bed; as well as a CPAP machine. [facility] has [facility] Home health Services come once a week for wound care and supplies via insurance; temporarily suspended due to hospitalization. [facility] has a private home care provider come by three times a week, private pay. Denies dialysis. PCP - Ashli Parmar MD Pharmacy - [address] Upon discharge, Emily Tran, Spouse [phone] will take him home and assist with care, as needed. Requested information to get a nebulizer; referred to PCP for prescription. MD GARSIA - Patient had a peripheral angiograph in [employer] with Dr. Alvarez. Dr. Sarabia is evaluating for possible surgical procedure of left toe. Addendum: 11/30/24 at 1757 by MILVIA CHAN RN CM Amended: Links added.
--- NOTE | 2024-11-30 18:46 | PN ---
PROGRESS NOTE Date of Service: Nov 30, 2024 Time of Service: 18:43 SUBJECTIVE: This 74 year old male was seen for follow up on gangrene to the 2nd toe left foot and the 5th toe left foot the patient is just status post angioplasty done by Dr. Horta this time we had successful angioplasty improve circulation to the foot. No new complaints. REVIEW OF SYSTEMS CONSTITUTIONAL: Denies fever, chills, or fatigue. HEAD/FACE: No signs of trauma. EENT: Denies eye pain, blurred vision, double vision, or light sensitivity. RESPIRATORY: Denies shortness of breath, Positive for cough, congested CARDIOVASCULAR: Denies chest pain, palpitation, syncope. Non palpable pulses left foot GASTROINTESTINAL/ABDOMINAL: Denies abdominal pain, constipation, diarrhea, nausea or vomiting GENITOURINARY: Denies dysuria or hematuria. MUSCULOSKELETAL: Denies joint pain, tenderness, or trauma. INTEGUMENTARY: Gangrene left 2nd toe and ischemic ulcer 5th toe left NEUROLOGICAL/PSYCH: Denies anxiety, depression, heat or cold intolerance. PHYSICAL EXAM EYES: Anicteric. Pupils equal and reactive. HENT: No oral thrush seen, moist Oral mucosa NECK: Supple, no JVD or thyromegaly. LUNGS: Good air entry. No rales, no rhonchi. CARDIOVASCULAR: S1, S2 regular. No murmur heard. non palpable pulses left foot ABDOMEN: Soft, non tender, bowel sounds present, no organomegaly CENTRAL NERVOUS SYSTEM: Awake, alert, oriented x 3. No focal deficits. SKIN: Gangrene 2nd toe. Ischemic ulcer 5th toe left LYMPHATICS: No peripheral lymphadenopathy MUSCULOSKELETAL: No joint swelling, erythema or tenderness. EXTREMITIES: No cyanosis or clubbing BACK: No deformity, no pressure ulcer. GENITOURINARY: No dysuria or hematuria Vital Signs (last 8hr) Date Time Temp Pulse Resp B/P (MAP) Pulse Ox O2 Delivery O2 Flow Rate FiO2 11/30/24 17:26 86 18 116/42 Room Air 11/30/24 17:11 68 17 141/71 Room Air 11/30/24 16:41 64 18 143/66 92 11/30/24 16:26 67 18 117/56 99 Room Air 11/30/24 16:00 97.7 57 18 166/53 100 Room Air 11/30/24 15:56 58 17 169/36 100 Room Air 11/30/24 15:42 58 18 162/50 100 Room Air 11/30/24 15:15 97.9 54 17 166/53 99 Room Air 11/30/24 12:00 97.5 57 17 146/68 100 Room Air LABS: Laboratory: Test 11/30/24 16:19 11/30/24 03:26 11/29/24 13:18 11/29/24 13:03 Range/Units Whole Blood Glucose 168 #H 70-110 MG/DL White Blood Count 8.9 # 4.8-10.8 K/uL Red Blood Count 3.48 L 4.50-6.20 MIL/uL Hemoglobin 10.9 L 14.0-18.0 g/dL Hematocrit 32.7 L 42-54 % Mean Corpuscular Volume 94.0 79-99 fL Mean Corpuscular Hemoglobin 31.3 27.0-33.0 pg Mean Corpuscular Hemoglobin Concent 33.3 32.0-36.0 g/dL Red Cell Distribution Width 13.9 11.0-15.5 % Platelet Count 205 130-400 K/uL Mean Platelet Volume 10.7 H 7.5-10.5 fL Immature Granulocyte % (Auto) 0.6 0-1 % Neutrophils (%) (Auto) 63.0 40.0-77.0 % Lymphocytes (%) (Auto) 23.8 21.0-51.0 % Monocytes (%) (Auto) 9.0 3.0-13.0 % Eosinophils (%) (Auto) 3.0 0.0-8.0 % Basophils (%) (Auto) 0.6 0.0-5.0 % Neutrophils # (Auto) 5.6 1.8-7.7 K/uL Lymphocytes # (Auto) 2.1 1.0-4.8 K/uL Monocytes # (Auto) 0.8 0.1-1.0 K/uL Eosinophils # (Auto) 0.27 0.00-0.70 K/uL Basophils # (Auto) 0.05 0.00-0.20 K/uL Absolute Immature Granulocyte (auto 0.05 0-1 K/uL Nucleated Red Blood Cells 0.0 0.0-0.19 % Prothrombin Time 10.6 9.6-11.6 SEC Prothromb Time International Ratio 1.00 0.85-1.15 Activated Partial Thromboplast Time 45.1 H 26.3-35.5 SEC Sodium Level 140 136-145 mmol/L Potassium Level 4.5 3.5-5.1 mmol/L Chloride Level 109 101-111 mmol/L Carbon Dioxide Level 26 21-32 mmol/L Blood Urea Nitrogen 33 H 7-18 mg/dL Creatinine 1.6 H 0.5-1.3 mg/dL Glomerular Filtration Rate Calc 46 >90 mL/min Random Glucose 100 70-105 mg/dL Total Calcium 8.3 L 8.5-10.1 mg/dL Magnesium Level 1.80 1.80-2.40 mg/dL Total Bilirubin 0.5 # 0.2-1.0 mg/dL Aspartate Amino Transf (AST/SGOT) 18 10-37 U/L Alanine Aminotransferase (ALT/SGPT) 43 # 12-78 U/L Alkaline Phosphatase 104 # 50-136 U/L Total Protein 6.0 6.0-8.3 g/dL Albumin 2.5 #L 3.5-5.0 g/dL Influenza Type A Antigen Negative For Type A NEGATIVE Influenza Type B Antigen Negative For Type B NEGATIVE SARS-CoV-2, RNA, NAAT NEGATIVE SARS CoV-2 NEGATIVE Lupus Anticoag PTT Mix/Correction Hexagonal Phospholipid Neutralizat Test 11/29/24 11:44 11/29/24 08:34 Range/Units Anti-Nuclear Antibody Screen Negative Negative Anti-Nuclear Antibody Interpret LANA-1 Antibody SS-A/Ro Antibody SS-B/La Antibody Sm (Encarnacion) IgG Antibody, Quant GEOGRAPHY HEAD IgG Antibody, Quantitative Scl-70 (Scleroderma) Antibody Anti-Double Strand DNA Antibody Chromatin Antibody Anti-Centromere IgG Antibody Erythrocyte Sedimentation Rate 30 H 0-20 MM/HR Lactic Acid Level 1.0 0.8-2.5 mmol/L Direct Bilirubin 0.1 0.0-0.3 mg/dL Total Creatine Kinase 103 21-232 U/L Troponin I High Sensitivity 10 4-75 ng/L C-Reactive Protein, Quantitative 2.00 0.5-3.0 mg/L Procalcitonin < 0.05 L 0.05-0.5 ng/mL DIAGNOSTICS / RADIOLOGY: LEFT SECOND TOE RADIOGRAPHS - 2-3 VIEWS INDICATION: Second toe necrosis COMPARISON: None FINDINGS: AP, lateral views. No evidence for acute fracture or subluxation. No evidence for periosteal reaction, cortical erosive changes, or any abnormal subperiosteal bone resorption. Extensive arterial wall calcific plaque. IMPRESSION: No evidence for osteomyelitis. ASSESSMENT: Gangrene 2nd toe left Ischemic ulcer 5th toe left PAD PLAN: Cardiovascular intervention and appreciated. At this time recommendations is for amputation of the 2nd toe and 5th toe ulcer debridement on the left foot. Case has been explained to the family and the patient herself with the aggregate to the treatment plan. No guarantees were offered at this time. We will schedule the case for tomorrow NPO after midnight. VENECIA TORRES DPM Nov 30, 2024 18:46
[2024-12-01] VITALS (29 sets, daily range): BP systolic 110–151; BP diastolic 41–69; PULSE 50–68; RESP 15–20; TEMP 97.5–98.5; O2SAT 96–100
--- NOTE | 2024-12-01 03:05 | NUR ---
nurse note patient alert and oriented times person and place. plan of care discussed with him and his . they verbalized understanding. patient signed his own consent for left 2nd toe amputation. I faxed the order to warehouse order filler, abdirashid cadena, and let her know. The patient's IV infiltrated at 23:00. Eddie and I went into the room to obtain another IV and the patient started punching and saying, "don't touch me, fuck you, get out of here." He also wanted to bite my hand. I called his and she tried to speak with him and he was very upset. He didn't speak with her. His Jenelle Tran said that he, "gets like that sometimes at home, but he calms down later." He did calm down and Eddie placed a 22 gauge on the right forearm. I removed the old IV and the tip was intact. Celia and I bathed the patient. He is npo after midnight. He has been using the bipap tonight. Patient is incontinent and celia and I check him every hour to see if he is wet or needs assistance. Bed alarm on, call light within reach, will continue to monitor patient.
[2024-12-01 04:42] LABS: BASOPHILS # (AUTO) 0.05 K/uL (0.00-0.20); BASOPHILS % (AUTO) 0.5 % (0.0-5.0); EOSINOPHILS # (AUTO) 0.23 K/uL (0.00-0.70); EOSINOPHILS % (AUTO) 2.1 % (0.0-8.0); HEMATOCRIT 30.5 % (42-54); IMMATURE GRANULOCYTE ABSOLUTE 0.05 K/uL (0-1); LYMPHOCYTES # (AUTO) 1.6 K/uL (1.0-4.8); LYMPHOCYTES % (AUTO) 14.2 % (21.0-51.0); MEAN CORPUSCULAR HGB CONC 33.4 g/dL (32.0-36.0); MEAN CORPUSCULAR VOLUME 92.7 fL (79-99); MONOCYTES % (AUTO) 8.8 % (3.0-13.0); NEUTROPHILS # (AUTO) 8.1 K/uL (1.8-7.7); NEUTROPHILS % (AUTO) 73.9 % (40.0-77.0); PLATELET COUNT (AUTO) 186 K/uL (130-400); RED BLOOD CELL COUNT(AUTO) 3.29 MIL/uL (4.50-6.20); RED CELL DISTRIBUTION WIDTH 13.5 % (11.0-15.5)
[2024-12-01 04:55] LABS: INR 1.04 (0.85-1.15)
[2024-12-01 04:56] LABS: PARTIAL THROMBOPLASTIN TIME 43.6 SEC (26.3-35.5)
[2024-12-01 05:05] LABS: CREATININE 1.5 mg/dL (0.5-1.3); PHOSPHORUS 2.6 mg/dL (2.5-4.9); POTASSIUM 4.2 mmol/L (3.5-5.1)
[2024-12-01] MEDS: acetaMINOPHEN 100 ML ONE (12:52)
[2024-12-01] MEDS: FAMOTIDINE 20MG VIAL IV ONE (12:52)
[2024-12-01] MEDS ORDERED: proPOFol 10 MG/ML 20ML VIAL IV ONE (12:55)
[2024-12-01] MEDS ORDERED: FENTanyl CITRate PF 50 MCG/1 ML 2ML VIAL ONE (12:55)
[2024-12-01] MEDS ORDERED: LIDOCAINE PF 100MG/5ML (2%) SYRINGE 5ML ONE (12:55)
[2024-12-01] MEDS ORDERED: LIDOCAINE HCL 1% 20 ML VIAL ONE (12:57)
--- NOTE | 2024-12-01 13:45 | PN ---
[facility] PROGRESS NOTE Date of Service: Dec 01, 2024 Time of Service: 13:44 SUBJECTIVE: 11/30 patient seen at bedside, no acute events overnight. Creatinine improved from 1.8 down to 1.6, hemoglobin decreased from 12.6 down to 10.9, remainder of his labs are relatively unremarkable. Pending possible peripheral angiogram, continue broad-spectrum IV antibiotics managed by Infectious Disease. 12/01 patient seen at bedside, no acute events overnight. Cardiology perform angioplasty yesterday, Podiatry planning on amputation today, we will follow up postprocedure. Continue with empiric antibiotics. Creatinine improved from 1.6 down to 1.5, WBC increased from 8.9 up to 11.0, remainder of his labs are relatively unremarkable. REVIEW OF SYSTEMS 12 point review of systems negative unless noted in HPI PHYSICAL EXAM GENERAL APPEARANCE: The patient is awake, alert, and oriented, in no acute cardiopulmonary distress. NEUROLOGICAL: Cranial nerves II-XII grossly intact. Motor is 5/5 in bilateral upper and lower extremities proximal to distal. No sensory deficits. HEENT: Face is symmetric. Pupils are equal and reactive. Extraocular movements are intact. NECK: Supple. No JVD. No thyromegaly. No submental, submandibular, pre-/post auricular, occipital or supraclavicular lymphadenopathy. CHEST: Normal chest expansion. No Telemetry. LUNGS: Absence of any rales, rhonchi or any wheezing. CARDIOVASCULAR: Regular. S1 and S2 normal. No appreciable rubs, murmurs or gallops. ABDOMEN: Soft, nontender, and nondistended. There is no rebound, voluntary guarding, or rigidity. : Deferred. No López. EXTREMITIES: Non-edematous and not cyanotic. No clubbing. Good capillary refill. SKIN: No skin breakdown. Vital Signs (last 8hr) Date Time Temp Pulse Resp B/P (MAP) Pulse Ox O2 Delivery O2 Flow Rate FiO2 12/01/24 12:45 98.1 58 16 135/69 100 Room Air 12/01/24 12:00 98.2 59 16 142/64 98 Room Air 21 12/01/24 08:00 98.1 66 16 117/59 100 Room Air 21 12/01/24 07:09 67 18 12/01/24 07:07 67 18 N/A Room Air 21 LABS: Laboratory: Test 12/01/24 11:21 12/01/24 04:28 11/30/24 03:26 Range/Units Whole Blood Glucose 142 H 70-110 MG/DL White Blood Count 11.0 H 4.8-10.8 K/uL Red Blood Count 3.29 L 4.50-6.20 MIL/uL Hemoglobin 10.2 L 14.0-18.0 g/dL Hematocrit 30.5 L 42-54 % Mean Corpuscular Volume 92.7 79-99 fL Mean Corpuscular Hemoglobin 31.0 27.0-33.0 pg Mean Corpuscular Hemoglobin Concent 33.4 32.0-36.0 g/dL Red Cell Distribution Width 13.5 11.0-15.5 % Platelet Count 186 130-400 K/uL Mean Platelet Volume 11.2 H 7.5-10.5 fL Immature Granulocyte % (Auto) 0.5 0-1 % Neutrophils (%) (Auto) 73.9 40.0-77.0 % Lymphocytes (%) (Auto) 14.2 L 21.0-51.0 % Monocytes (%) (Auto) 8.8 3.0-13.0 % Eosinophils (%) (Auto) 2.1 0.0-8.0 % Basophils (%) (Auto) 0.5 0.0-5.0 % Neutrophils # (Auto) 8.1 H 1.8-7.7 K/uL Lymphocytes # (Auto) 1.6 1.0-4.8 K/uL Monocytes # (Auto) 1.0 0.1-1.0 K/uL Eosinophils # (Auto) 0.23 0.00-0.70 K/uL Basophils # (Auto) 0.05 0.00-0.20 K/uL Absolute Immature Granulocyte (auto 0.05 0-1 K/uL Nucleated Red Blood Cells 0.0 0.0-0.19 % Prothrombin Time 11.0 9.6-11.6 SEC Prothromb Time International Ratio 1.04 0.85-1.15 Activated Partial Thromboplast Time 43.6 H 26.3-35.5 SEC Sodium Level 137 136-145 mmol/L Potassium Level 4.2 3.5-5.1 mmol/L Chloride Level 107 101-111 mmol/L Carbon Dioxide Level 23 21-32 mmol/L Blood Urea Nitrogen 28 H 7-18 mg/dL Creatinine 1.5 H 0.5-1.3 mg/dL Glomerular Filtration Rate Calc 49 >90 mL/min Random Glucose 148 H 70-105 mg/dL Total Calcium 8.2 L 8.5-10.1 mg/dL Phosphorus Level 2.6 2.5-4.9 mg/dL Magnesium Level 2.00 1.80-2.40 mg/dL Total Bilirubin 0.5 # 0.2-1.0 mg/dL Aspartate Amino Transf (AST/SGOT) 18 10-37 U/L Alanine Aminotransferase (ALT/SGPT) 43 # 12-78 U/L Alkaline Phosphatase 104 # 50-136 U/L Total Protein 6.0 6.0-8.3 g/dL Albumin 2.5 #L 3.5-5.0 g/dL Current Medications Medications (Trade) Dose Ordered Sig/Jessi Route PRN Reason Start Time Stop Time Status Last Admin Dose Admin Acetaminophen (TYLenol 325MG TAB) 650 mg Q6H PRN PO MILD PAIN (1-3) 11/29/24 11:30 12/29/24 11:29 Aspirin (Aspirin 81mg Ec Tab) 81 mg DAILY PO 11/29/24 13:00 12/29/24 12:59 11/30/24 08:48 81 MG Aspirin (Aspirin 81mg Ec Tab) 81 mg DAILY PO 11/30/24 09:00 11/29/24 13:13 DC Atorvastatin Calcium (LIPItor 20MG) 20 mg HS PO 11/29/24 21:00 11/29/24 13:14 DC Atorvastatin Calcium (LIPItor 20MG) 20 mg HS PO 11/29/24 21:00 12/29/24 20:59 11/30/24 20:13 20 MG Budesonide (Pulmicort 0.5 Mg/2ml) 0.5 mg BIDRESP IH 11/29/24 11:00 12/29/24 10:59 12/01/24 07:08 0.5 MG Cefepime HCl (MAXipime 1 GM vial) 1 gm Q24H IVPB 11/29/24 13:00 12/09/24 12:59 12/01/24 13:17 1 GM Dextrose (D50w) 50 ml AD PRN IV HYPOGLYCEMIA PROTOCOL 11/30/24 15:00 12/30/24 14:59 Docusate Sodium (COLace 100MG CAP) 100 mg HS PO 11/29/24 21:00 12/29/24 20:59 11/30/24 20:13 100 MG Glucagon (Glucagon 1mg Kit) 1 mg AD PRN IM HYPOGLYCEMIA PROTOCOL 11/30/24 15:00 12/30/24 14:59 Insulin Human Regular (humuLIN R 100 UNIT/ML 3ML) INSULIN SLIDING SCAL... ACHS SQ 11/29/24 11:30 12/29/24 11:29 11/30/24 20:21 4 UNIT Ipratropium Menno (AtrovENT UD) 0.5 mg Q6H PRN IH SHORTNESS OF BREATH 11/29/24 17:30 12/29/24 17:29 11/30/24 06:52 0.5 MG Ipratropium Menno (AtrovENT UD) 1 mg Q6H PRN IH SHORTNESS OF BREATH 11/29/24 11:30 11/29/24 12:07 DC Lactated Ringer's 1,000 ml @ 50 mls/hr Q20H IV 11/29/24 11:30 11/29/24 13:35 DC Levothyroxine Sodium (SYNTHroid 25MCG TAB) 25 mcg SYN PO 11/30/24 06:30 12/30/24 06:29 Linezolid 300 ml @ 300 mls/hr Q12H IV 11/30/24 03:00 12/21/24 02:59 12/01/24 01:18 300 MLS/HR Linezolid (Zyvox) 600 mg Q12H PO 11/29/24 14:00 11/30/24 02:37 DC 11/29/24 13:47 600 MG Magnesium Sulfate 50 ml @ 0 mls/hr PROTOCOL IV 11/29/24 12:00 12/29/24 11:59 11/30/24 05:48 15 MLS/HR Ondansetron HCl (zoFRAN 4MG INJ) 4 mg Q6H PRN IVP NAUSEA/VOMITING 11/29/24 11:30 12/29/24 11:29 Pantoprazole Sodium (PROTonix 40MG TAB) 40 mg DAILY PO 11/30/24 09:00 12/30/24 08:59 11/30/24 08:48 40 MG Rivaroxaban (Xarelto) 2.5 mg BID PO 11/29/24 21:00 11/29/24 13:13 DC Rivaroxaban (Xarelto) 2.5 mg BID PO 11/29/24 21:00 12/29/24 20:59 11/30/24 20:14 2.5 MG Sodium Chloride 1,000 ml @ 75 mls/hr [id number] IV 11/29/24 13:00 12/29/24 12:59 12/01/24 07:09 75 MLS/HR Sodium Chloride 1,000 ml @ 100 mls/hr Q10H IV 11/30/24 15:00 11/30/24 17:59 DC 11/30/24 15:29 100 MLS/HR Tamsulosin HCl (FloMAX) 0.4 mg DAILY PO 11/30/24 09:00 12/30/24 08:59 11/30/24 08:48 0.4 MG Vancomycin HCl 250 ml @ 125 mls/hr Q24H IV 11/30/24 08:00 11/29/24 13:18 DC Vancomycin HCl (Vancomycin Protocol) 1 each AD IV 11/29/24 11:30 11/29/24 13:09 DC Vitamin B Complex/ Vit C/Folic Acid (Nephrovite Tablet) 1 cap DAILY PO 11/30/24 09:00 12/30/24 08:59 11/30/24 08:48 1 CAP DIAGNOSTICS / RADIOLOGY: [ ] ASSESSMENT: Left 2nd toe necrosis with progressive cellulitis, POA 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 foot, POA Underlying peripheral arterial disease, POA Leukocytosis, POA Underlying history of type 2 diabetes mellitus, POA 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, POA History of lower extremity DVT, POA History of multivessel coronary artery disease with prior history of CABG, POA History of NSTEMI, POA History of SVT, POA Chronic kidney disease stage 3, POA Hypertension, POA Hyperlipidemia, POA Debility, POA History of oropharyngeal dysphagia, POA Hx of Hypothyroidism, POA PLAN: Patient will be admitted to medical-surgical floor under telemetry monitoring We will keep patient on broad-spectrum antibiotics with renally dosed IV vanco mycin and cefepime given leukocytosis on presentation and underlying cellulitis with necrotic 2nd toe Appreciate recommendations by Dr. Horta with Cardiology, plan is for lower extremity angiogram tomorrow morning Appreciate recommendations by Dr. Sarabia, with Podiatry, there is tentative plans for amputation of the 2nd toe on Wednesday next week following lower extremity angiogram We will have Infectious Disease follow up with this patient We will follow up blood cultures, ESR, CRP, procalcitonin Patient will be placed on sliding scale insulin a.c. and HS Hold home medications were reconciled and updated Patient will be placed on aspiration precautions, he does have pooling of secretions from underlying history of stroke, we will obtain speech evaluation to rule out any silent aspiration, obtain chest x-ray as well Patient will be placed on Pulmicort twice daily and Atrovent inhalation q.6 hours p.r.n. All labs will be repeated in the morning anticipate hospitalization for greater than 72 hours Patient has underlying history of strokes and DVT, APTT is noted to be prolonged and patient is on small dose of Xarelto 2.5 mg b.i.d., we will obtain workup for antiphospholipid syndrome including MILVIA screen, beta two glycoprotein antibody, lupus anticoagulant and cardiolipin antibody Disposition: Pending improvement in clinical status JUDIT SLATER MD Dec 01, 2024 13:45
[2024-12-01] MEDS ORDERED: ketaMINE 50MG/ML SYRINGE 50 MG/ML DISP.SYRIN ONE (14:00)
[2024-12-01] MEDS ORDERED: MIDAZOLAM HCL 1 MG/ML 2ML VIAL ONE (14:02)
[2024-12-01] MEDS: BUPIvacaine/PF 0.5% 30ML VIAL ONE (14:04)
[2024-12-01] MEDS: LIDOCAINE HCL 1% 20 ML VIAL INJ ONE (14:04)
--- NOTE | 2024-12-01 15:31 | PN ---
Cardiology Progress Note Date of Service: 12/01/2024 Attending Astronomy Professor: Dr. Glenis Horta Reason for Consult: PAD Problem List: -Leukocytosis -Dry gangrene affecting the 2nd and 5th digits of the left foot, pending amputation -PAD, Arianna category 5 symptoms (LLE) s/p successful treatment with orbital atherectomy, balloon lithotripsy, and balloon angioplasty of the proximal and mid left SHAKILA and balloon lithotripsy and balloon angioplasty of the proximal left DPA done on 11/30/[address] 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 The patient underwent successfully percutaneous peripheral intervention of the left SHAKILA and DPA yesterday. He tolerated the procedure well and without issue. Through limited conversation, the patient denies any active complaints including chest pain, chest pressure, palpitations, shortness of breath, or lower extremity pain. As per the nurse, there were no overnight events. The patient is pending amputation/debridement of the 2nd and 5th digits on the left foot later today. Vitals/Labs Vital Signs Date Time Temp Pulse Resp B/P (MAP) Pulse Ox O2 Delivery O2 Flow Rate FiO2 12/01/24 14:54 61 16 141/58 96 Room Air 12/01/24 14:29 97.5 10.0 12/01/24 12:00 21 General: Awake, but altered. No acute distress. Chronically ill appearing. HEENT: Normocephalic, atraumatic. EOMI. Left eye opaque. Oral mucosa was moist. Neck: No masses, JVD, or carotid bruits noted. Lungs: No respiratory distress. Symmetric chest movement. Bilateral air entry. Diminished breath sounds noted throughout. Cardiac: Regular rate. Normal S1 and S2, +S4. No other murmurs, rubs, or gallops noted. Abdomen: Soft, nontender, nondistended. No organomegaly. Normal active bowel sounds x 4 quadrants. Extremities: Trace edema seen in the bilateral lower extremities. No clubbing or cyanosis. The left foot is wrapped in a bulky dressing. The left SHAKILA and DPA pulses were identified via Doppler ultrasound. The right groin access site is soft to palpation and free of significant bleeding, bruising, or hematoma formation. Neuro: Left hemiparesis noted. Laboratory Tests 12/01/24 04:28 Assessment: -Leukocytosis -Dry gangrene affecting the 2nd and 5th digits of the left foot, pending amputation -PAD, [place] category 5 symptoms (LLE) s/p successful treatment with orbital atherectomy, balloon lithotripsy, and balloon angioplasty of the proximal and mid left SHAKILA and balloon lithotripsy and balloon angioplasty of the proximal left DPA done on 11/30/[address] 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 PAD, [place] category 5 symptoms (LLE) s/p successful treatment with orbital atherectomy, balloon lithotripsy, and balloon angioplasty of the proximal and mid left SHAKILA and balloon lithotripsy and balloon angioplasty of the proximal left DPA done on 11/30/[address] Horta -The procedure also identified residual 100% stenosis (ASSISTANCE COORDINATOR) in the mid left peroneal artery and 100% stenosis (ASSISTANCE COORDINATOR) proximal S[employer] L[employer]CH MONITOR, but neither artery reconstitute distally, so they are not amendable to percutaneous or surgical revascularization. -We will obtain a TCOM analysis to assess the patient's potential for wound healing/candidacy for HBO therapy. -In the meantime, he will continue on GDMT which includes aspirin 81 mg daily, Xarelto 2.5 mg BID, and atorvastatin 20 mg QHS. -In addition, he should continue with aggressive wound care and antibiotic therapy. 2. CAD s/p 3V CABG (GORDILLO-LAD, SVG-Ramus, SVG-RPDA) done on 08/12/2022 -Stable -Continue aspirin 81 mg daily, Xarelto 2.5 mg BID, and atorvastatin 20 mg QHS. We will be signing off of the case, but if there are any further questions or concerns, please feel free to contact us at your earliest convenience. Please have the patient follow up with Cardiology, Dr. Glenis Horta, 1-2 weeks after discharge. GLENIS HORTA MD Dec 01, 2024 15:31
--- NOTE | 2024-12-01 16:11 | PN ---
INFECTIOUS DISEASE PROGRESS NOTE Date of Service: Dec 01, 2024 SUBJECTIVE: This is a 74-year-old male patient who was brought to the emergency room for evaluation of necrosis to the left 2nd toe. Patient is status post peripheral angiogram day # 1 and is scheduled for a left 2nd toe amputation for today. Patient is afebrile, temperature is 98.1 and the WBC is 11.0. Renal function is improving, the BUN is 28 and creatinine of 1.5. Patient continues on linezolid and cefepime. No episodes of emesis reported. We will continue to follow patient's care. PHYSICAL EXAM EYES: Anicteric. Pupils equal and reactive. HENT: No oral thrush seen, moist Oral mucosa. NECK: Supple, no JVD or thyromegaly. LUNGS: Good air entry. No rales, no rhonchi. CARDIOVASCULAR: S1, S2 regular. No murmur heard. ABDOMEN: Soft, non tender, bowel sounds present, no organomegaly. CENTRAL NERVOUS SYSTEM: Awake, alert, oriented x 1. SKIN: No rashes, no swelling. Left 2nd toe gangrene and left 5th toe ischemic ulcer. LYMPHATICS: No peripheral lymphadenopathy MUSCULOSKELETAL: No joint swelling, erythema or tenderness. EXTREMITIES: No cyanosis or clubbing. History of stroke with left-sided hemiparesis. BACK: No deformity, no pressure ulcer. GENITOURINARY: No dysuria or hematuria. Vital Sign (Last 12 Hours) 12/01/24 12/01/24 12/01/24 12/01/24 07:07 07:09 08:00 12:00 Temp 98.1 98.2 Pulse 67 67 66 59 Resp 18 18 16 16 B/P (MAP) 117/59 142/64 Pulse Ox 100 98 O2 Delivery N/A Room Air Room Air Room Air FiO2 21 21 21 12/01/24 12/01/24 12/01/24 12/01/24 12:45 14:29 14:34 14:39 Temp 98.1 97.5 Pulse 58 62 58 68 Resp 16 17 16 17 B/P (MAP) 135/69 143/63 147/63 126/64 Pulse Ox 100 100 98 98 O2 Delivery Room Air Nonrebreathing Mask Room Air Room Air O2 Flow Rate 10.0 12/01/24 12/01/24 12/01/24 12/01/24 14:44 14:49 14:54 15:04 Temp 97.7 Pulse 61 61 61 65 Resp 16 17 16 15 B/P (MAP) 147/58 139/60 141/58 136/62 Pulse Ox 97 96 96 97 O2 Delivery Room Air Room Air Room Air Room Air Intake & Output (last 24hrs) 11/30/24 11/30/24 12/01/24 15:00 23:00 07:00 Intake Total 1200.0 ml Balance 1200.0 ml LABS: Laboratory: Test 12/01/24 15:47 12/01/24 04:28 11/30/24 03:26 Range/Units Whole Blood Glucose 109 70-110 MG/DL White Blood Count 11.0 H 4.8-10.8 K/uL Red Blood Count 3.29 L 4.50-6.20 MIL/uL Hemoglobin 10.2 L 14.0-18.0 g/dL Hematocrit 30.5 L 42-54 % Mean Corpuscular Volume 92.7 79-99 fL Mean Corpuscular Hemoglobin 31.0 27.0-33.0 pg Mean Corpuscular Hemoglobin Concent 33.4 32.0-36.0 g/dL Red Cell Distribution Width 13.5 11.0-15.5 % Platelet Count 186 130-400 K/uL Mean Platelet Volume 11.2 H 7.5-10.5 fL Immature Granulocyte % (Auto) 0.5 0-1 % Neutrophils (%) (Auto) 73.9 40.0-77.0 % Lymphocytes (%) (Auto) 14.2 L 21.0-51.0 % Monocytes (%) (Auto) 8.8 3.0-13.0 % Eosinophils (%) (Auto) 2.1 0.0-8.0 % Basophils (%) (Auto) 0.5 0.0-5.0 % Neutrophils # (Auto) 8.1 H 1.8-7.7 K/uL Lymphocytes # (Auto) 1.6 1.0-4.8 K/uL Monocytes # (Auto) 1.0 0.1-1.0 K/uL Eosinophils # (Auto) 0.23 0.00-0.70 K/uL Basophils # (Auto) 0.05 0.00-0.20 K/uL Absolute Immature Granulocyte (auto 0.05 0-1 K/uL Nucleated Red Blood Cells 0.0 0.0-0.19 % Prothrombin Time 11.0 9.6-11.6 SEC Prothromb Time International Ratio 1.04 0.85-1.15 Activated Partial Thromboplast Time 43.6 H 26.3-35.5 SEC Sodium Level 137 136-145 mmol/L Potassium Level 4.2 3.5-5.1 mmol/L Chloride Level 107 101-111 mmol/L Carbon Dioxide Level 23 21-32 mmol/L Blood Urea Nitrogen 28 H 7-18 mg/dL Creatinine 1.5 H 0.5-1.3 mg/dL Glomerular Filtration Rate Calc 49 >90 mL/min Random Glucose 148 H 70-105 mg/dL Total Calcium 8.2 L 8.5-10.1 mg/dL Phosphorus Level 2.6 2.5-4.9 mg/dL Magnesium Level 2.00 1.80-2.40 mg/dL Total Bilirubin 0.5 # 0.2-1.0 mg/dL Aspartate Amino Transf (AST/SGOT) 18 10-37 U/L Alanine Aminotransferase (ALT/SGPT) 43 # 12-78 U/L Alkaline Phosphatase 104 # 50-136 U/L Total Protein 6.0 6.0-8.3 g/dL Albumin 2.5 #L 3.5-5.0 g/dL ASSESSMENT: Left 2nd toe gangrene. Left 5th toe ischemic ulcer. Peripheral Artery Disease, s/p peripheral angiogram. Left foot cellulitis. Leukocytosis. Acute on chronic renal failure. Diabetes mellitus. History of stroke with left-sided hemiparesis. PLAN: Continue linezolid. Continue cefepime. Continue GI prophylaxis. Continue pain management. Continue monitoring glucose levels. Avoid nephrotoxic medications. We will follow up on the cultures. Cardiology following patient. This case was reviewed and discussed with my supervising physician and the above assessment and plan was formulated and agreed upon. ATTESTATION BY PHYSICIAN I have seen and examined the patient. I reviewed the documentation, medical decision making, and treatment plan as noted by the mid-level provider above. I agree with the findings and plan of care. ANGELINA VILLALBA MD, [facility] Dec 01, 2024 16:11
--- NOTE | 2024-12-01 19:09 | NUR ---
CC SPEECH NOTE: Patient was set to have his MBSS completed at 16:30pm however, Ana reported that patient had just come out of surgery and MBSS would have to wait until patient is alert. Addendum: 12/01/24 at 1910 by NELSON CHAMPION Amended: Links added.
--- NOTE | 2024-12-01 22:37 | OP ---
DATE OF PROCEDURE: 12/01/2024 HISTORY OF PRESENT ILLNESS: This is a 74-year-old white male. PREOPERATIVE DIAGNOSES: Gangrene second toe left foot and ulcer fifth toe left foot. POSTOPERATIVE DIAGNOSES: Gangrene second toe left foot and ulcer fifth toe left foot. SURGICAL PROCEDURE: Amputation of second toe, left foot and excisional debridement of ulcer, fifth toe, left foot. SURGEON: Kumar Sarabia DPM. ANESTHESIOLOGIST: Gianfranco Duffy CRNA TYPE OF ANESTHESIA: Local MAC. INJECTABLES: 1% Xylocaine and 0.25% Marcaine, a total of 20 mL via regional block on the second metatarsal of the fifth metatarsal. ESTIMATED BLOOD LOSS: Less than 5 mL. SPECIMEN: Second toe, left foot and this is including distal medial and proximal phalanx at the level of the metatarsophalangeal joint. COMPLICATIONS: None. RATIONALE FOR PROCEDURE: This white male was admitted to the Emergency Room with underlying peripheral vascular disease and underwent angioplasty yesterday. At this time, the patient presented with gangrene to the second toe and ischemic ulcer to the fifth toe, both on left foot. Decision was made for amputation of the second toe in an attempt to salvage the foot and debridement of the ulcer for continuing local wound care and attempt to salvage the fifth toe on the same left foot. No guarantees were offered at this time. The patient agreed to the procedure and family members. DESCRIPTION OF PROCEDURE: As follows: The patient was brought into the operating room table and placed in the supine position under IV sedation. Local anesthesia was achieved via local infiltration of 1% Xylocaine and 0.25% Marcaine given as a regional block at this time. A total of 20 mL was given at this time to the left foot. The foot was prepped and draped in the usual sterile fashion. Utilizing #15 blade, two semielliptical incisions were performed along the metatarsophalangeal joint of the second toe, left foot. By this means, I continued the incisions down to capsular level releasing collateral lateral ligaments, medial collateral ligaments and dorsi flexor, sub plantar flexor tendons to release the toe at the metatarsophalangeal joint level. At this moment, the wound was irrigated with copious amount of saline solution and the wound edges were reapproximated utilizing 2-0 nylon in the simple fashion. At this moment, my attention was directed towards the fifth toe. Utilizing a #10 blade, the ulcer was debrided excisionally down to subcutaneous tissue level. Good bleeding was noted, good granulating base and the area was flushed utilizing copious amount of saline solution. Dressing was applied utilizing Adaptic, Betadine solution, 4 x 4 and Kerlix. The patient tolerated procedure and anesthesia well and was sent to recovery room with vital signs stable and plan to follow up with antibiotics and medical management. TID: [id number] RECEIPT: [id number]
[2024-12-02] VITALS (12 sets, daily range): BP systolic 118–154; BP diastolic 55–76; PULSE 55–76; RESP 16–19; TEMP 98.3–99; O2SAT 96–98
[2024-12-02 03:47] LABS: BASOPHILS # (AUTO) 0.04 K/uL (0.00-0.20); BASOPHILS % (AUTO) 0.4 % (0.0-5.0); EOSINOPHILS # (AUTO) 0.17 K/uL (0.00-0.70); EOSINOPHILS % (AUTO) 1.9 % (0.0-8.0); HEMATOCRIT 29.2 % (42-54); IMMATURE GRANULOCYTE ABSOLUTE 0.04 K/uL (0-1); LYMPHOCYTES # (AUTO) 1.4 K/uL (1.0-4.8); MEAN CORPUSCULAR HEMOGLOBIN 30.8 pg (27.0-33.0); MEAN CORPUSCULAR HGB CONC 33.2 g/dL (32.0-36.0); MEAN CORPUSCULAR VOLUME 92.7 fL (79-99); MONOCYTES # (AUTO) 0.8 K/uL (0.1-1.0); MONOCYTES % (AUTO) 9.2 % (3.0-13.0); NEUTROPHILS # (AUTO) 6.6 K/uL (1.8-7.7); NEUTROPHILS % (AUTO) 73.1 % (40.0-77.0); PLATELET COUNT (AUTO) 179 K/uL (130-400); RED BLOOD CELL COUNT(AUTO) 3.15 MIL/uL (4.50-6.20); RED CELL DISTRIBUTION WIDTH 13.5 % (11.0-15.5)
[2024-12-02 04:18] LABS: CREATININE 1.6 mg/dL (0.5-1.3)
--- NOTE | 2024-12-02 12:21 | NUR ---
SPEECH THERAPY- Pt PENDING MBSS AT THIS TIME. UNABLE TO COMPLETE MBSS ON WEEKEND. EXAM PENDING FOR WEDNESDAY Addendum: 12/02/24 at 1222 by AGUSTÍN CHAMPION Amended: Links added.
--- NOTE | 2024-12-02 13:05 | PN ---
INFECTIOUS DISEASE PROGRESS NOTE Date of Service: Dec 02, 2024 SUBJECTIVE: This is a 74-year-old male patient who was brought to the emergency room for evaluation of necrosis to the left 2nd toe. Patient is status post left 2nd toe amputation and excisional debridement of the left 5th toe ulcer day # 1. Dressing is clean and dry and secure with Michael wrap. The WBC has trended down to 9.0 and no reports of fever, temperature is 98.4. Preliminary blood culture results growing Gram-positive cocci in clusters. We will follow up on the final results. Patient continues on linezolid and cefepime. No episodes of emesis reported. We will continue to follow patient's care. PHYSICAL EXAM EYES: Anicteric. Pupils equal and reactive. HENT: No oral thrush seen, moist Oral mucosa. NECK: Supple, no JVD or thyromegaly. LUNGS: Good air entry. No rales, no rhonchi. CARDIOVASCULAR: S1, S2 regular. No murmur heard. ABDOMEN: Soft, non tender, bowel sounds present, no organomegaly. CENTRAL NERVOUS SYSTEM: Awake, alert, oriented x 1. SKIN: No rashes, no swelling. Left 2nd toe gangrene and left 5th toe ischemic ulcer. LYMPHATICS: No peripheral lymphadenopathy MUSCULOSKELETAL: No joint swelling, erythema or tenderness. EXTREMITIES: No cyanosis or clubbing. History of stroke with left-sided hemiparesis. BACK: No deformity, no pressure ulcer. GENITOURINARY: No dysuria or hematuria. Vital Sign (Last 12 Hours) 12/02/24 12/02/24 12/02/24 12/02/24 03:59 07:12 07:18 08:00 Temp 98.4 98.4 Pulse 55 61 61 59 Resp 18 18 18 18 B/P (MAP) 132/76 120/58 Pulse Ox 98 98 O2 Delivery CPAP N/A Room Air Room Air FiO2 21 12/02/24 12:04 Temp 99.0 Pulse 66 Resp 18 B/P (MAP) 154/59 Pulse Ox 96 O2 Delivery Room Air Intake & Output (last 24hrs) 12/01/24 12/01/24 12/02/24 15:00 23:00 07:00 Intake Total 0 ml 400 ml 0 ml Balance 0 ml 400 ml 0 ml LABS: Laboratory: Test 12/02/24 11:19 12/02/24 05:58 12/02/24 03:24 12/01/24 04:28 Range/Units Whole Blood Glucose 143 H 70-110 MG/DL Bedside Glucose Comment Notified Nurse White Blood Count 9.0 4.8-10.8 K/uL Red Blood Count 3.15 L 4.50-6.20 MIL/uL Hemoglobin 9.7 L 14.0-18.0 g/dL Hematocrit 29.2 L 42-54 % Mean Corpuscular Volume 92.7 79-99 fL Mean Corpuscular Hemoglobin 30.8 27.0-33.0 pg Mean Corpuscular Hemoglobin Concent 33.2 32.0-36.0 g/dL Red Cell Distribution Width 13.5 11.0-15.5 % Platelet Count 179 130-400 K/uL Mean Platelet Volume 11.1 H 7.5-10.5 fL Immature Granulocyte % (Auto) 0.4 0-1 % Neutrophils (%) (Auto) 73.1 40.0-77.0 % Lymphocytes (%) (Auto) 15.0 L 21.0-51.0 % Monocytes (%) (Auto) 9.2 3.0-13.0 % Eosinophils (%) (Auto) 1.9 0.0-8.0 % Basophils (%) (Auto) 0.4 0.0-5.0 % Neutrophils # (Auto) 6.6 1.8-7.7 K/uL Lymphocytes # (Auto) 1.4 1.0-4.8 K/uL Monocytes # (Auto) 0.8 0.1-1.0 K/uL Eosinophils # (Auto) 0.17 0.00-0.70 K/uL Basophils # (Auto) 0.04 0.00-0.20 K/uL Absolute Immature Granulocyte (auto 0.04 0-1 K/uL Nucleated Red Blood Cells 0.0 0.0-0.19 % Sodium Level 137 136-145 mmol/L Potassium Level 4.0 3.5-5.1 mmol/L Chloride Level 107 101-111 mmol/L Carbon Dioxide Level 26 21-32 mmol/L Blood Urea Nitrogen 21 H 7-18 mg/dL Creatinine 1.6 H 0.5-1.3 mg/dL Glomerular Filtration Rate Calc 46 >90 mL/min Random Glucose 197 H 70-105 mg/dL Total Calcium 8.0 L 8.5-10.1 mg/dL Prothrombin Time 11.0 9.6-11.6 SEC Prothromb Time International Ratio 1.04 0.85-1.15 Activated Partial Thromboplast Time 43.6 H 26.3-35.5 SEC Phosphorus Level 2.6 2.5-4.9 mg/dL Magnesium Level 2.00 1.80-2.40 mg/dL ASSESSMENT: Left 2nd toe gangrene, status post left 2nd toe amputation. Left 5th toe ischemic ulcer, s/p excisional debridement. Peripheral Artery Disease, s/p peripheral angiogram. Left foot cellulitis. Leukocytosis, resolving. Acute on chronic renal failure. Diabetes mellitus. History of stroke with left-sided hemiparesis. PLAN: Continue linezolid. Continue cefepime. Continue GI prophylaxis. Continue pain management. Continue monitoring glucose levels. Avoid nephrotoxic medications. We will follow up on the cultures. Cardiology following patient. This case was reviewed and discussed with my supervising physician and the above assessment and plan was formulated and agreed upon. ATTESTATION BY PHYSICIAN I have seen and examined the patient. I reviewed the documentation, medical decision making, and treatment plan as noted by the mid-level provider above. I agree with the findings and plan of care. ANGELINA VILLALBA MD, MIRTA L [facility] Dec 02, 2024 13:05
--- NOTE | 2024-12-02 14:45 | NUR ---
Spoke to family in room who stated south requires A for all ADL's and does not walk however can help to transfer to WC/transport chair. Has CG during the day. Plan is for Dc home. Pt recommends HHPT. Addendum: 12/02/24 at 1603 by VIJAY LEAL PT Amended: Links added.
--- NOTE | 2024-12-02 15:03 | PN ---
[facility] PROGRESS NOTE Date of Service: Dec 02, 2024 Time of Service: 14:56 SUBJECTIVE: 3/ patient seen at bedside, no acute events overnight. Creatinine improved from 1.8 down to 1.6, hemoglobin decreased from 12.6 down to 10.9, remainder of his labs are relatively unremarkable. Pending possible peripheral angiogram, continue broad-spectrum IV antibiotics managed by Infectious Disease. 12/01 patient seen at bedside, no acute events overnight. Cardiology perform angioplasty yesterday, Podiatry planning on amputation today, we will follow up postprocedure. Continue with empiric antibiotics. Creatinine improved from 1.6 down to 1.5, WBC increased from 8.9 up to 11.0, remainder of his labs are relatively unremarkable. 12/02 patient seen at bedside, no acute events overnight. He is status post amputation, postop day one. Physical therapy to evaluate him for discharge needs and Infectious Disease to determine his discharge antibiotics, case management to coordinate between PT and ID for discharge. Vitals and labs relatively unremarkable. REVIEW OF SYSTEMS 12 point review of systems negative unless noted in HPI PHYSICAL EXAM GENERAL APPEARANCE: The patient is awake, alert, and oriented, in no acute cardiopulmonary distress. NEUROLOGICAL: Cranial nerves II-XII grossly intact. Motor is 5/5 in bilateral upper and lower extremities proximal to distal. No sensory deficits. HEENT: Face is symmetric. Pupils are equal and reactive. Extraocular movements are intact. NECK: Supple. No JVD. No thyromegaly. No submental, submandibular, pre- /postauricular, occipital or supraclavicular lymphadenopathy. CHEST: Normal chest expansion. No Telemetry. LUNGS: Absence of any rales, rhonchi or any wheezing. CARDIOVASCULAR: Regular. S1 and S2 normal. No appreciable rubs, murmurs or gallops. ABDOMEN: Soft, nontender, and nondistended. There is no rebound, voluntary guarding, or rigidity. : Deferred. No López. EXTREMITIES: Non-edematous and not cyanotic. No clubbing. Good capillary refill. SKIN: No skin breakdown. Vital Signs (last 8hr) Date Time Temp Pulse Resp B/P (MAP) Pulse Ox O2 Delivery O2 Flow Rate FiO2 12/02/24 12:04 99.0 66 18 154/59 96 Room Air 12/02/24 08:00 98.4 59 18 120/58 98 Room Air 12/02/24 07:18 61 18 N/A Room Air 21 12/02/24 07:12 61 18 LABS: Laboratory: Test 12/02/24 11:19 12/02/24 05:58 12/02/24 03:24 12/01/24 04:28 Range/Units Whole Blood Glucose 143 H 70-110 MG/DL Bedside Glucose Comment Notified Nurse White Blood Count 9.0 4.8-10.8 K/uL Red Blood Count 3.15 L 4.50-6.20 MIL/uL Hemoglobin 9.7 L 14.0-18.0 g/dL Hematocrit 29.2 L 42-54 % Mean Corpuscular Volume 92.7 79-99 fL Mean Corpuscular Hemoglobin 30.8 27.0-33.0 pg Mean Corpuscular Hemoglobin Concent 33.2 32.0-36.0 g/dL Red Cell Distribution Width 13.5 11.0-15.5 % Platelet Count 179 130-400 K/uL Mean Platelet Volume 11.1 H 7.5-10.5 fL Immature Granulocyte % (Auto) 0.4 0-1 % Neutrophils (%) (Auto) 73.1 40.0-77.0 % Lymphocytes (%) (Auto) 15.0 L 21.0-51.0 % Monocytes (%) (Auto) 9.2 3.0-13.0 % Eosinophils (%) (Auto) 1.9 0.0-8.0 % Basophils (%) (Auto) 0.4 0.0-5.0 % Neutrophils # (Auto) 6.6 1.8-7.7 K/uL Lymphocytes # (Auto) 1.4 1.0-4.8 K/uL Monocytes # (Auto) 0.8 0.1-1.0 K/uL Eosinophils # (Auto) 0.17 0.00-0.70 K/uL Basophils # (Auto) 0.04 0.00-0.20 K/uL Absolute Immature Granulocyte (auto 0.04 0-1 K/uL Nucleated Red Blood Cells 0.0 0.0-0.19 % Sodium Level 137 136-145 mmol/L Potassium Level 4.0 3.5-5.1 mmol/L Chloride Level 107 101-111 mmol/L Carbon Dioxide Level 26 21-32 mmol/L Blood Urea Nitrogen 21 H 7-18 mg/dL Creatinine 1.6 H 0.5-1.3 mg/dL Glomerular Filtration Rate Calc 46 >90 mL/min Random Glucose 197 H 70-105 mg/dL Total Calcium 8.0 L 8.5-10.1 mg/dL Prothrombin Time 11.0 9.6-11.6 SEC Prothromb Time International Ratio 1.04 0.85-1.15 Activated Partial Thromboplast Time 43.6 H 26.3-35.5 SEC Phosphorus Level 2.6 2.5-4.9 mg/dL Magnesium Level 2.00 1.80-2.40 mg/dL Current Medications Medications (Trade) Dose Ordered Sig/Jessi Route PRN Reason Start Time Stop Time Status Last Admin Dose Admin Acetaminophen (TYLenol 325MG TAB) 650 mg Q6H PRN PO MILD PAIN (1-3) 11/29/24 11:30 12/29/24 11:29 Aspirin (Aspirin 81mg Ec Tab) 81 mg DAILY PO 11/29/24 13:00 12/29/24 12:59 12/02/24 09:59 81 MG Aspirin (Aspirin 81mg Ec Tab) 81 mg DAILY PO 11/30/24 09:00 11/29/24 13:13 DC Atorvastatin Calcium (LIPItor 20MG) 20 mg HS PO 11/29/24 21:00 11/29/24 13:14 DC Atorvastatin Calcium (LIPItor 20MG) 20 mg HS PO 11/29/24 21:00 12/29/24 20:59 12/01/24 21:43 20 MG Budesonide (Pulmicort 0.5 Mg/2ml) 0.5 mg BIDRESP IH 11/29/24 11:00 12/29/24 10:59 12/02/24 07:11 0.5 MG Cefepime HCl (MAXipime 1 GM vial) 1 gm Q24H IVPB 11/29/24 13:00 12/09/24 12:59 12/02/24 13:12 1 GM Dextrose (D50w) 50 ml AD PRN IV HYPOGLYCEMIA PROTOCOL 11/30/24 15:00 12/30/24 14:59 Docusate Sodium (COLace 100MG CAP) 100 mg HS PO 11/29/24 21:00 12/29/24 20:59 12/01/24 21:43 100 MG Glucagon (Glucagon 1mg Kit) 1 mg AD PRN IM HYPOGLYCEMIA PROTOCOL 11/30/24 15:00 12/30/24 14:59 Insulin Human Regular (humuLIN R 100 UNIT/ML 3ML) INSULIN SLIDING SCAL... ACHS SQ 11/29/24 11:30 12/29/24 11:29 12/02/24 06:48 2 UNIT Ipratropium [place] (AtrovENT UD) 0.5 mg Q6H PRN IH SHORTNESS OF BREATH 11/29/24 17:30 12/29/24 17:29 11/30/24 06:52 0.5 MG Ipratropium [place] (AtrovENT UD) 1 mg Q6H PRN IH SHORTNESS OF BREATH 11/29/24 11:30 11/29/24 12:07 DC Lactated Ringer's 1,000 ml @ 50 mls/hr Q20H IV 11/29/24 11:30 11/29/24 13:35 DC Levothyroxine Sodium (SYNTHroid 25MCG TAB) 25 mcg SYN PO 11/30/24 06:30 12/30/24 06:29 12/02/24 06:04 25 MCG Linezolid 300 ml @ 300 mls/hr Q12H IV 11/30/24 03:00 12/21/24 02:59 12/02/24 04:08 300 MLS/HR Linezolid (Zyvox) 600 mg Q12H PO 11/29/24 14:00 11/30/24 02:37 DC 11/29/24 13:47 600 MG Magnesium Sulfate 50 ml @ 0 mls/hr PROTOCOL IV 11/29/24 12:00 12/29/24 11:59 11/30/24 05:48 15 MLS/HR Ondansetron HCl (zoFRAN 4MG INJ) 4 mg Q6H PRN IVP NAUSEA/VOMITING 11/29/24 11:30 12/29/24 11:29 Pantoprazole Sodium (PROTonix 40MG TAB) 40 mg DAILY PO 11/30/24 09:00 12/30/24 08:59 12/02/24 09:59 40 MG Rivaroxaban (Xarelto) 2.5 mg BID PO 11/29/24 21:00 11/29/24 13:13 DC Rivaroxaban (Xarelto) 2.5 mg BID PO 11/29/24 21:00 12/29/24 20:59 12/02/24 09:59 2.5 MG Sodium Chloride 1,000 ml @ 75 mls/hr [id number] IV 11/29/24 13:00 12/29/24 12:59 12/02/24 10:04 75 MLS/HR Sodium Chloride 1,000 ml @ 100 mls/hr Q10H IV 11/30/24 15:00 11/30/24 17:59 DC 11/30/24 15:29 100 MLS/HR Tamsulosin HCl (FloMAX) 0.4 mg DAILY PO 11/30/24 09:00 12/30/24 08:59 12/02/24 09:59 0.4 MG Vancomycin HCl 250 ml @ 125 mls/hr Q24H IV 11/30/24 08:00 11/29/24 13:18 DC Vancomycin HCl (Vancomycin Protocol) 1 each AD IV 11/29/24 11:30 11/29/24 13:09 DC Vitamin B Complex/ Vit C/Folic Acid (Nephrovite Tablet) 1 cap DAILY PO 11/30/24 09:00 12/30/24 08:59 12/02/24 09:59 1 CAP DIAGNOSTICS / RADIOLOGY: [ ] ASSESSMENT: Left 2nd toe necrosis with progressive cellulitis, POA 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 foot, POA 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 (12/02/24) Underlying peripheral arterial disease, POA Leukocytosis, POA Underlying history of type 2 diabetes mellitus, POA 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, POA History of lower extremity DVT, POA Multivessel coronary artery disease with prior history of CABG, POA Chronic kidney disease stage 3, POA Hypertension, POA Hyperlipidemia, POA Debility, POA History of oropharyngeal dysphagia, POA Hx of Hypothyroidism, POA PLAN: Continue telemetry Continue linezolid and cefepime Cardiology consulted, appreciate recommendations Podiatry consulted, appreciate recommendations ID consulted, appreciate recommendations Post op wound care per podiatry Continue sliding scale insulin a.c. and HS Continue Pulmicort twice daily and Atrovent inhalation q.6 hours p.r.n. Case management to assist with dispo coordinating with PT and ID Disposition: Pending improvement in clinical status, PT recs, ID recs JUDIT SLATER MD Dec 02, 2024 15:03
[2024-12-02] MEDS: acetaMINOPHEN 325 MG TAB PO PRN (16:37)
[2024-12-03] VITALS (13 sets, daily range): BP systolic 106–161; BP diastolic 54–74; PULSE 52–71; RESP 18–22; TEMP 97.9–98.9; O2SAT 96–100
[2024-12-03 06:38] LABS: BASOPHILS # (AUTO) 0.03 K/uL (0.00-0.20); BASOPHILS % (AUTO) 0.3 % (0.0-5.0); EOSINOPHILS # (AUTO) 0.21 K/uL (0.00-0.70); EOSINOPHILS % (AUTO) 2.4 % (0.0-8.0); HEMATOCRIT 28.5 % (42-54); IMMATURE GRANULOCYTE ABSOLUTE 0.07 K/uL (0-1); LYMPHOCYTES # (AUTO) 1.8 K/uL (1.0-4.8); LYMPHOCYTES % (AUTO) 21.3 % (21.0-51.0); MEAN CORPUSCULAR HEMOGLOBIN 30.9 pg (27.0-33.0); MEAN CORPUSCULAR HGB CONC 33.3 g/dL (32.0-36.0); MEAN CORPUSCULAR VOLUME 92.8 fL (79-99); MONOCYTES % (AUTO) 11.3 % (3.0-13.0); NEUTROPHILS # (AUTO) 5.5 K/uL (1.8-7.7); NEUTROPHILS % (AUTO) 63.9 % (40.0-77.0); PLATELET COUNT (AUTO) 168 K/uL (130-400); RED BLOOD CELL COUNT(AUTO) 3.07 MIL/uL (4.50-6.20); RED CELL DISTRIBUTION WIDTH 13.5 % (11.0-15.5); WHITE BLOOD COUNT (AUTO) 8.6 K/uL (4.8-10.8)
[2024-12-03 06:44] LABS: CREATININE 1.6 mg/dL (0.5-1.3); POTASSIUM 4.2 mmol/L (3.5-5.1)
--- NOTE | 2024-12-03 15:00 | NUR ---
DRESSING CHANGE DONE TOP LEFT FOOT , LEFT OUTER TOE SITE CLEANSED , 2ND TOE AREA WITH SUTURES INTACT ,OLD DRY BLOOD CLEANSED AND REDRESSED PER MDS INSTRUCTIONS NEW PERRY WRAP LOOSELY APPLIED APPLIED.PATIENT GERMAN PROCEDURE WELL.
--- NOTE | 2024-12-03 15:01 | PN ---
[facility] PROGRESS NOTE Date of Service: Dec 03, 2024 Time of Service: 14:56 SUBJECTIVE: 11/30 patient seen at bedside, no acute events overnight. Creatinine improved from 1.8 down to 1.6, hemoglobin decreased from 12.6 down to 10.9, remainder of his labs are relatively unremarkable. Pending possible peripheral angiogram, continue broad-spectrum IV antibiotics managed by Infectious Disease. 12/01 patient seen at bedside, no acute events overnight. Cardiology perform angioplasty yesterday, Podiatry planning on amputation today, we will follow up postprocedure. Continue with empiric antibiotics. Creatinine improved from 1.6 down to 1.5, WBC increased from 8.9 up to 11.0, remainder of his labs are relatively unremarkable. 12/02 patient seen at bedside, no acute events overnight. He is status post amputation, postop day one. Physical therapy to evaluate him for discharge needs and Infectious Disease to determine his discharge antibiotics, case management to coordinate between PT and ID for discharge. Vitals and labs relatively unremarkable. 12/03 patient seen at bedside, no acute events overnight. Blood culture growing Gram-positive in 1/2 bottles, repeat cultures are still pending, we will follow up with Infectious Disease regarding discharge disposition. Patient is declining rehab at this time and prefers to take him back home. REVIEW OF SYSTEMS 12 point review of systems negative unless noted in HPI PHYSICAL EXAM GENERAL APPEARANCE: The patient is awake, alert, and oriented, in no acute cardiopulmonary distress. NEUROLOGICAL: Cranial nerves II-XII grossly intact. Motor is 5/5 in bilateral upper and lower extremities proximal to distal. No sensory deficits. HEENT: Face is symmetric. Pupils are equal and reactive. Extraocular movements are intact. NECK: Supple. No JVD. No thyromegaly. No submental, submandibular, pre- /postauricular, occipital or supraclavicular lymphadenopathy. CHEST: Normal chest expansion. No Telemetry. LUNGS: Absence of any rales, rhonchi or any wheezing. CARDIOVASCULAR: Regular. S1 and S2 normal. No appreciable rubs, murmurs or gallops. ABDOMEN: Soft, nontender, and nondistended. There is no rebound, voluntary guarding, or rigidity. : Deferred. No López. EXTREMITIES: Non-edematous and not cyanotic. No clubbing. Good capillary refill. SKIN: No skin breakdown. Vital Signs (last 8hr) Date Time Temp Pulse Resp B/P (MAP) Pulse Ox O2 Delivery O2 Flow Rate FiO2 12/03/24 12:26 63 18 N/A Room Air 21 12/03/24 12:00 98.1 57 18 161/74 97 Room Air 12/03/24 07:15 98.1 54 18 106/59 96 Room Air 21 LABS: Laboratory: Test 12/03/24 12:08 12/03/24 05:58 12/02/24 05:58 Range/Units Whole Blood Glucose 255 #H 70-110 MG/DL White Blood Count 8.6 4.8-10.8 K/uL Red Blood Count 3.07 L 4.50-6.20 MIL/uL Hemoglobin 9.5 L 14.0-18.0 g/dL Hematocrit 28.5 L 42-54 % Mean Corpuscular Volume 92.8 79-99 fL Mean Corpuscular Hemoglobin 30.9 27.0-33.0 pg Mean Corpuscular Hemoglobin Concent 33.3 32.0-36.0 g/dL Red Cell Distribution Width 13.5 11.0-15.5 % Platelet Count 168 130-400 K/uL Mean Platelet Volume 11.5 H 7.5-10.5 fL Immature Granulocyte % (Auto) 0.8 0-1 % Neutrophils (%) (Auto) 63.9 40.0-77.0 % Lymphocytes (%) (Auto) 21.3 21.0-51.0 % Monocytes (%) (Auto) 11.3 3.0-13.0 % Eosinophils (%) (Auto) 2.4 0.0-8.0 % Basophils (%) (Auto) 0.3 0.0-5.0 % Neutrophils # (Auto) 5.5 1.8-7.7 K/uL Lymphocytes # (Auto) 1.8 1.0-4.8 K/uL Monocytes # (Auto) 1.0 0.1-1.0 K/uL Eosinophils # (Auto) 0.21 0.00-0.70 K/uL Basophils # (Auto) 0.03 0.00-0.20 K/uL Absolute Immature Granulocyte (auto 0.07 0-1 K/uL Nucleated Red Blood Cells 0.0 0.0-0.19 % Sodium Level 139 136-145 mmol/L Potassium Level 4.2 3.5-5.1 mmol/L Chloride Level 110 101-111 mmol/L Carbon Dioxide Level 25 21-32 mmol/L Blood Urea Nitrogen 22 H 7-18 mg/dL Creatinine 1.6 H 0.5-1.3 mg/dL Glomerular Filtration Rate Calc 46 >90 mL/min Random Glucose 193 H 70-105 mg/dL Total Calcium 7.9 L 8.5-10.1 mg/dL Bedside Glucose Comment Notified Nurse Current Medications Medications (Trade) Dose Ordered Sig/Jessi Route PRN Reason Start Time Stop Time Status Last Admin Dose Admin Acetaminophen (TYLenol 325MG TAB) 650 mg Q6H PRN PO MILD PAIN (1-3) 11/29/24 11:30 12/29/24 11:29 12/02/24 16:37 650 MG Aspirin (Aspirin 81mg Ec Tab) 81 mg DAILY PO 11/29/24 13:00 12/29/24 12:59 12/03/24 10:04 81 MG Aspirin (Aspirin 81mg Ec Tab) 81 mg DAILY PO 11/30/24 09:00 11/29/24 13:13 DC Atorvastatin Calcium (LIPItor 20MG) 20 mg HS PO 11/29/24 21:00 11/29/24 13:14 DC Atorvastatin Calcium (LIPItor 20MG) 20 mg HS PO 11/29/24 21:00 12/29/24 20:59 12/02/24 19:36 20 MG Budesonide (Pulmicort 0.5 Mg/2ml) 0.5 mg BIDRESP IH 11/29/24 11:00 12/29/24 10:59 12/03/24 06:33 0.5 MG Cefepime HCl (MAXipime 1 GM vial) 1 gm Q24H IVPB 11/29/24 13:00 12/09/24 12:59 12/03/24 13:05 1 GM Dextrose (D50w) 50 ml AD PRN IV HYPOGLYCEMIA PROTOCOL 11/30/24 15:00 12/30/24 14:59 Docusate Sodium (COLace 100MG CAP) 100 mg HS PO 11/29/24 21:00 12/29/24 20:59 12/02/24 19:36 100 MG Glucagon (Glucagon 1mg Kit) 1 mg AD PRN IM HYPOGLYCEMIA PROTOCOL 11/30/24 15:00 4/5/25 14:59 Insulin Human Regular (humuLIN R 100 UNIT/ML 3ML) INSULIN SLIDING SCAL... ACHS SQ 11/29/24 11:30 12/29/24 11:29 12/03/24 12:58 5 UNIT Ipratropium [place] (AtrovENT UD) 0.5 mg Q6H PRN IH SHORTNESS OF BREATH 11/29/24 17:30 12/29/24 17:29 11/30/24 06:52 0.5 MG Ipratropium [place] (AtrovENT UD) 1 mg Q6H PRN IH SHORTNESS OF BREATH 11/29/24 11:30 11/29/24 12:07 DC Lactated Ringer's 1,000 ml @ 50 mls/hr Q20H IV 11/29/24 11:30 11/29/24 13:35 DC Levothyroxine Sodium (SYNTHroid 25MCG TAB) 25 mcg SYN PO 11/30/24 06:30 12/30/24 06:29 12/03/24 06:54 25 MCG Linezolid 300 ml @ 300 mls/hr Q12H IV 11/30/24 03:00 12/21/24 02:59 12/03/24 02:51 300 MLS/HR Linezolid (Zyvox) 600 mg Q12H PO 11/29/24 14:00 11/30/24 02:37 DC 11/29/24 13:47 600 MG Magnesium Sulfate 50 ml @ 0 mls/hr PROTOCOL IV 11/29/24 12:00 12/29/24 11:59 11/30/24 05:48 15 MLS/HR Ondansetron HCl (zoFRAN 4MG INJ) 4 mg Q6H PRN IVP NAUSEA/VOMITING 11/29/24 11:30 12/29/24 11:29 Pantoprazole Sodium (PROTonix 40MG TAB) 40 mg DAILY PO 11/30/24 09:00 12/30/24 08:59 12/03/24 10:05 40 MG Rivaroxaban (Xarelto) 2.5 mg BID PO 11/29/24 21:00 11/29/24 13:13 DC Rivaroxaban (Xarelto) 2.5 mg BID PO 11/29/24 21:00 12/29/24 20:59 12/03/24 10:05 2.5 MG Sodium Chloride 1,000 ml @ 75 mls/hr [id number] IV 11/29/24 13:00 12/29/24 12:59 12/03/24 10:11 75 MLS/HR Sodium Chloride 1,000 ml @ 100 mls/hr Q10H IV 11/30/24 15:00 11/30/24 17:59 DC 11/30/24 15:29 100 MLS/HR Tamsulosin HCl (FloMAX) 0.4 mg DAILY PO 11/30/24 09:00 12/30/24 08:59 12/03/24 10:04 0.4 MG Vancomycin HCl 250 ml @ 125 mls/hr Q24H IV 11/30/24 08:00 11/29/24 13:18 DC Vancomycin HCl (Vancomycin Protocol) 1 each AD IV 11/29/24 11:30 11/29/24 13:09 DC Vitamin B Complex/ Vit C/Folic Acid (Nephrovite Tablet) 1 cap DAILY PO 11/30/24 09:00 12/30/24 08:59 12/03/24 10:05 1 CAP DIAGNOSTICS / RADIOLOGY: [ ] ASSESSMENT: Left 2nd toe necrosis with progressive cellulitis, POA 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 foot, POA 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 (12/02/24) Underlying peripheral arterial disease, POA Gram-positive bacteremia 1/2 bottles, staph epidermidis Leukocytosis, POA Underlying history of type 2 diabetes mellitus, POA 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, POA History of lower extremity DVT, POA Multivessel coronary artery disease with prior history of CABG, POA Chronic kidney disease stage 3, POA Hypertension, POA Hyperlipidemia, POA Debility, POA History of oropharyngeal dysphagia, POA Hx of Hypothyroidism, POA PLAN: Continue telemetry Continue linezolid and cefepime Cardiology consulted, appreciate recommendations Podiatry consulted, appreciate recommendations\ Echo taken, read still pending, we will follow up to rule out endocarditis ID consulted, appreciate recommendations Post op wound care per podiatry Continue sliding scale insulin a.c. and HS Continue Pulmicort twice daily and Atrovent inhalation q.6 hours p.r.n. Case management to assist with dispo coordinating with PT and ID Repeat blood cultures are pending Disposition: Pending improvement in clinical status, PT recs, ID recs JUDIT SLATER MD Dec 03, 2024 15:01
--- NOTE | 2024-12-03 16:44 | HMCSR ---
APPROVED REPORT EXAM: Two-dimensional and M-mode echocardiogram with Doppler and color Doppler. Study Details: HTN. TIA, CAD , CABG , Diabts M INDICATION ICD: gram positive bacteremia , ass 2D Dimensions RVDd4.3 cmLVEF(%)94.3 (>50%)LVED Vol(simp.)103.3 mL IVSd0.9 (0.7-1.1cm)FS(%)68 %LVES Vol(simp.)42.9 mL LVDd3.9 (3.8-5.6cm)LA (2D)3.5 (1.6-4.0cm)LVEF(%, simp.)58 % PWd0.9 (0.7-1.1cm)Ao Root(2D)3.3 (2.0-3.7cm)LA ESV INDEX (4CH)60.00 mL/m2 IVSs1.6 cmLVOT diam1.9 (1.8-2.4cm)LA ESV INDEX (2CH)213.00 mL/m2 LVDs1.3 (2.5-4.0cm)IVC diam1.7 cmLA ESV INDEX (BP)198.00 mL/m2 PWs1.4 cm Deformation Strain Apical 416.0 % Apical 221.6 % Apical 319.6 % Global Ehlllp73.0 % M-Mode Dimensions EPSS0.4 cm LA (MM)4.3 (1.6-4.0cm) Ao Root(MM)2.9 (2.0-3.7cm) Aortic Valve AoV Vmax1.0 m/Leatha Peak GR3.7 mmHgLVOT Vmax0.8 m/s AoV VTI0.3 mAo Mean GR2.3 mmHgLVOT VTI0.24 m NANCY (VMAX)2.5 cm2AVA (VTI) 2.5 cm2 Mitral Valve MV E Wlyj505.5 cm/sDECEL Xmqg686 ms MV A Vmax79.1 cm/sP 1/2 T40 ms E/A ratio1.7MVA (PHT)5.5 cm2 TDI E/E' Cieayw00.2 Left Ventricle The left ventricle is normal size. There is normal LV segmental wall motion. Mild concentric left denis tricular hypertrophy. LVEF is 60-65%. The left ventricular diastolic function is normal. Right Ventricle The right ventricle is normal size. Right ventricular systolic function is borderline to mildly reduc ed. Atria The left atrium is mildly to moderately dilated. The interatrial septum is intact with no evidence fo r an atrial septal defect. The right atrium size is normal. Aortic Valve The aortic valve is normal in structure. No aortic regurgitation is present. There is no aortic valvu lar stenosis. Mitral Valve The mitral valve is mildly thickened. Mitral regurgitation is trace. There is no mitral valve stenosi s. Tricuspid Valve The tricuspid valve leaflets are mildly thickened. No tricuspid regurgitation. Pulmonic Valve Pulmonic valve is not well visualized. There is no pulmonic valvular regurgitation. Great Vessels The aortic root is normal in size. The ascending aorta is normal in size. The IVC is normal in size a nd collapses >50% with inspiration. Pericardium no pericardial effusion. Conclusion LVEF is 60-65%. There is normal LV segmental wall motion. The left atrium is mildly to moderately dilated.
[2024-12-03 20:09] LABS: DRVVT CONFIRMATION-LUPUS 1.5 ratio (0.8-1.2); DRVVT-LUPUS ANTICOAGULANT 73.6 sec (0.0-47.0)
[2024-12-04] VITALS (9 sets, daily range): BP systolic 135–145; BP diastolic 44–72; PULSE 56–74; RESP 17–22; TEMP 97.8–98.7; O2SAT 97–100
[2024-12-04 07:06] LABS: BASOPHILS # (AUTO) 0.05 K/uL (0.00-0.20); BASOPHILS % (AUTO) 0.6 % (0.0-5.0); EOSINOPHILS # (AUTO) 0.23 K/uL (0.00-0.70); EOSINOPHILS % (AUTO) 2.6 % (0.0-8.0); HEMATOCRIT 31.2 % (42-54); IMMATURE GRANULOCYTE ABSOLUTE 0.05 K/uL (0-1); LYMPHOCYTES # (AUTO) 1.5 K/uL (1.0-4.8); LYMPHOCYTES % (AUTO) 17.4 % (21.0-51.0); MEAN CORPUSCULAR HGB CONC 33.3 g/dL (32.0-36.0); MEAN CORPUSCULAR VOLUME 92.9 fL (79-99); MONOCYTES # (AUTO) 0.6 K/uL (0.1-1.0); MONOCYTES % (AUTO) 7.2 % (3.0-13.0); NEUTROPHILS # (AUTO) 6.4 K/uL (1.8-7.7); NEUTROPHILS % (AUTO) 71.6 % (40.0-77.0); PLATELET COUNT (AUTO) 172 K/uL (130-400); RED BLOOD CELL COUNT(AUTO) 3.36 MIL/uL (4.50-6.20); RED CELL DISTRIBUTION WIDTH 13.5 % (11.0-15.5); WHITE BLOOD COUNT (AUTO) 8.9 K/uL (4.8-10.8)
[2024-12-04 07:17] LABS: CREATININE 1.6 mg/dL (0.5-1.3); MAGNESIUM 1.6 mg/dL (1.80-2.40); PHOSPHORUS 2.7 mg/dL (2.5-4.9); POTASSIUM 4.1 mmol/L (3.5-5.1)
--- NOTE | 2024-12-04 08:04 | PN ---
INFECTIOUS DISEASE FOLLOWUP NOTE DATE OF SERVICE: 12/03/2024 SUBJECTIVE: The patient is seen and examined at bedside today. The patient has no fever, no chills. No nausea, no vomiting, no abdominal pain. No bleeding tendency. No palpitation or orthopnea. Sharp pain to the left foot. Family was updated at the bedside. PHYSICAL EXAMINATION: VITAL SIGNS: Temperature 98.5. EYES: No icterus. Blindness left eye. HENT: No oral thrush seen. Moist oral mucosa. NECK: Supple, no JVD or thyromegaly. LUNGS: Good air entry. No rales, no rhonchi. CARDIOVASCULAR: S1, S2 regular. No murmur heard. ABDOMEN: Full, soft. Bowel sound is present. CENTRAL NERVOUS SYSTEM: Awake, alert and oriented x3. SKIN: No rashes, no itchiness. LYMPHATIC: No lymphadenopathy. BACK: No deformity, no pressure ulcer. EXTREMITIES: S/P left second toe amputation. Intact incision. ASSESSMENT: A 74-year-old male with multiple problems which include: * Left foot gangrene and osteomyelitis, status post amputation. * Gangrene. * Peripheral vascular disease. * Hypertension. * Obesity. * Coronary artery disease. * Diabetes mellitus. * Gram-positive bacteremia, which is a contaminant. PLAN: * Continue cefepime. * Continue antiplatelets. * Continue wound care. * Follow up cultures. * Continue pain management. * Continue DVT prophylaxis. TID: [id number] RECEIPT: [id number] [facility]
[2024-12-04] MEDS ORDERED: MAGNESIUM 2GM PREMIX 50ML 50 ML IV SCH (13:30)
--- NOTE | 2024-12-04 13:48 | PN ---
INFECTIOUS DISEASE PROGRESS NOTE Date of Service: Dec 04, 2024 SUBJECTIVE: This is a 74-year-old male patient who was brought to the emergency room for evaluation of necrosis to the left 2nd toe. Patient is status post left 2nd toe amputation and excisional debridement of the left 5th toe ulcer on 12/01/2024. No fever, temperature is 98.1 and a WBC of 8.9. Patient has been on linezolid and cefepime. Discharge plan is to home with family. From Infectious Disease standpoint patient will not need antibiotics on discharge. PHYSICAL EXAM EYES: Anicteric. Pupils equal and reactive. HENT: No oral thrush seen, moist Oral mucosa. NECK: Supple, no JVD or thyromegaly. LUNGS: Good air entry. No rales, no rhonchi. CARDIOVASCULAR: S1, S2 regular. No murmur heard. ABDOMEN: Soft, non tender, bowel sounds present, no organomegaly. CENTRAL NERVOUS SYSTEM: Awake, alert, oriented x 1. SKIN: No rashes, no swelling. Left 2nd toe gangrene and left 5th toe ischemic ulcer. LYMPHATICS: No peripheral lymphadenopathy MUSCULOSKELETAL: No joint swelling, erythema or tenderness. EXTREMITIES: No cyanosis or clubbing. History of stroke with left-sided hemiparesis. BACK: No deformity, no pressure ulcer. GENITOURINARY: No dysuria or hematuria. Vital Sign (Last 12 Hours) 12/04/24 12/04/24 12/04/24 12/04/24 04:10 06:57 08:00 08:40 Temp 98.8 98.4 Pulse 56 68 64 68 Resp 20 22 17 18 B/P (MAP) 135/69 145/59 Pulse Ox 99 99 O2 Delivery Room Air Room Air N/A Room Air FiO2 21 12/04/24 12:00 Temp 98.1 Pulse 65 Resp 18 B/P (MAP) 136/50 Pulse Ox 99 O2 Delivery Room Air Intake & Output (last 24hrs) 12/03/24 12/03/24 12/04/24 15:00 23:00 07:00 Intake Total 500 ml Balance 500 ml LABS: Laboratory: Test 12/04/24 11:10 12/04/24 06:59 Range/Units Whole Blood Glucose 235 #H 70-110 MG/DL White Blood Count 8.9 4.8-10.8 K/uL Red Blood Count 3.36 L 4.50-6.20 MIL/uL Hemoglobin 10.4 L 14.0-18.0 g/dL Hematocrit 31.2 L 42-54 % Mean Corpuscular Volume 92.9 79-99 fL Mean Corpuscular Hemoglobin 31.0 27.0-33.0 pg Mean Corpuscular Hemoglobin Concent 33.3 32.0-36.0 g/dL Red Cell Distribution Width 13.5 11.0-15.5 % Platelet Count 172 130-400 K/uL Mean Platelet Volume 10.8 H 7.5-10.5 fL Immature Granulocyte % (Auto) 0.6 0-1 % Neutrophils (%) (Auto) 71.6 40.0-77.0 % Lymphocytes (%) (Auto) 17.4 L 21.0-51.0 % Monocytes (%) (Auto) 7.2 3.0-13.0 % Eosinophils (%) (Auto) 2.6 0.0-8.0 % Basophils (%) (Auto) 0.6 0.0-5.0 % Neutrophils # (Auto) 6.4 1.8-7.7 K/uL Lymphocytes # (Auto) 1.5 1.0-4.8 K/uL Monocytes # (Auto) 0.6 0.1-1.0 K/uL Eosinophils # (Auto) 0.23 0.00-0.70 K/uL Basophils # (Auto) 0.05 0.00-0.20 K/uL Absolute Immature Granulocyte (auto 0.05 0-1 K/uL Nucleated Red Blood Cells 0.0 0.0-0.19 % Sodium Level 138 136-145 mmol/L Potassium Level 4.1 3.5-5.1 mmol/L Chloride Level 108 101-111 mmol/L Carbon Dioxide Level 26 21-32 mmol/L Blood Urea Nitrogen 19 H 7-18 mg/dL Creatinine 1.6 H 0.5-1.3 mg/dL Glomerular Filtration Rate Calc 46 >90 mL/min Random Glucose 158 H 70-105 mg/dL Total Calcium 8.0 L 8.5-10.1 mg/dL Phosphorus Level 2.7 2.5-4.9 mg/dL Magnesium Level 1.60 L 1.80-2.40 mg/dL ASSESSMENT: Left 2nd toe gangrene, status post left 2nd toe amputation on 12/01/2024. Left 5th toe ischemic ulcer, s/p excisional debridement. Peripheral Artery Disease, s/p peripheral angiogram. Left foot cellulitis. Leukocytosis, resolved. Acute on chronic renal failure. Diabetes mellitus. History of stroke with left-sided hemiparesis. PLAN: No antibiotics needed on discharge when ready to discharge to home. Avoid nephrotoxic medications. This case was reviewed and discussed with my supervising physician and the above assessment and plan was formulated and agreed upon. ATTESTATION BY PHYSICIAN I have seen and examined the patient. I reviewed the documentation, medical decision making, and treatment plan as noted by the mid-level provider above. I agree with the findings and plan of care. ANGELINA VILLALBA MD, M[facility]TA [facility] Dec 04, 2024 13:48
--- NOTE | 2024-12-04 14:00 | NUR ---
MBSS COMPLETED. Deep non-transient penetration after the swallow with pudding thick and thin liquids via tsp with no cough response. Recommend NPO, file conversion operator alternate means of nutrition/hydration. SENIOR SCHEDULER reviewed results and recommendations with patient and nurse. SENIOR SCHEDULER educated patient on risks and consequences of aspiration. Speech therapy warranted at this time to address dysphagia. All questions answered at this time. RECOMMENDATIONS: Dysphagia Therapy 1-3X week to increase oral motor strength and pharyngeal swallow: LTG#1: Pt will tolerate least restrictive diet to meet nutrition/hydration with no s/s of aspiration. LTG#2: Skilled education Pt/family/staff STG#1: Pt will participate in laryngeal elevation/excursion exercises with 90% accuracy and min A. STG#2: Pt will participate in tongue base retraction exercises with 90% acc/with Min A. STG#3: Pt will participate in oral motor exercises with 90% acc/with Min A. STG#4: Pt will demonstrate a swallow delay of only -2 seconds following thermal tactile stimulation with 90% accuracy with Min A. STG#5: Skilled education Pt/family/staff. Addendum: 12/04/[address] AKIRA MCGOWAN Amended: Links added.
--- NOTE | 2024-12-04 16:01 | PN ---
[facility] PROGRESS NOTE Date of Service: Dec 04, 2024 Time of Service: 16:00 SUBJECTIVE: 11/30 patient seen at bedside, no acute events overnight. Creatinine improved from 1.8 down to 1.6, hemoglobin decreased from 12.6 down to 10.9, remainder of his labs are relatively unremarkable. Pending possible peripheral angiogram, continue broad-spectrum IV antibiotics managed by Infectious Disease. 12/01 patient seen at bedside, no acute events overnight. Cardiology perform angioplasty yesterday, Podiatry planning on amputation today, we will follow up postprocedure. Continue with empiric antibiotics. Creatinine improved from 1.6 down to 1.5, WBC increased from 8.9 up to 11.0, remainder of his labs are relatively unremarkable. 12/02 patient seen at bedside, no acute events overnight. He is status post amputation, postop day one. Physical therapy to evaluate him for discharge needs and Infectious Disease to determine his discharge antibiotics, case management to coordinate between PT and ID for discharge. Vitals and labs relatively unremarkable. 12/03 patient seen at bedside, no acute events overnight. Blood culture growing Gram-positive in 1/2 bottles, repeat cultures are still pending, we will follow up with Infectious Disease regarding discharge disposition. Patient is declining rehab at this time and prefers to take him back home. 12/04 patient is seen and examined, case discussed with the RN, no acute events overnight, results of blood culture positive for Staphylococcus epidermidis. Contamination, discussed with the ID. Patient had MBS, recommendation to keep NPO on PEG tube. We will discuss with the . REVIEW OF SYSTEMS 12 point review of systems negative unless noted in HPI PHYSICAL EXAM GENERAL APPEARANCE: The patient is awake, alert, and oriented, in no acute cardiopulmonary distress. NEUROLOGICAL: Cranial nerves II-XII grossly intact. Motor is 5/5 in bilateral upper and lower extremities proximal to distal. No sensory deficits. HEENT: Face is symmetric. Pupils are equal and reactive. Extraocular movements are intact. NECK: Supple. No JVD. No thyromegaly. No submental, submandibular, pre- /postauricular, occipital or supraclavicular lymphadenopathy. CHEST: Normal chest expansion. No Telemetry. LUNGS: Absence of any rales, rhonchi or any wheezing. CARDIOVASCULAR: Regular. S1 and S2 normal. No appreciable rubs, murmurs or gallops. ABDOMEN: Soft, nontender, and nondistended. There is no rebound, voluntary guarding, or rigidity. : Deferred. No López. EXTREMITIES: Non-edematous and not cyanotic. No clubbing. Good capillary refill. SKIN: No skin breakdown. Vital Signs (last 8hr) Date Time Temp Pulse Resp B/P (MAP) Pulse Ox O2 Delivery O2 Flow Rate FiO2 12/04/24 12:00 98.1 65 18 136/50 99 Room Air 12/04/24 08:40 68 18 N/A Room Air 21 LABS: Laboratory: Test 12/04/24 11:10 12/04/24 06:59 Range/Units Whole Blood Glucose 235 #H 70-110 MG/DL White Blood Count 8.9 4.8-10.8 K/uL Red Blood Count 3.36 L 4.50-6.20 MIL/uL Hemoglobin 10.4 L 14.0-18.0 g/dL Hematocrit 31.2 L 42-54 % Mean Corpuscular Volume 92.9 79-99 fL Mean Corpuscular Hemoglobin 31.0 27.0-33.0 pg Mean Corpuscular Hemoglobin Concent 33.3 32.0-36.0 g/dL Red Cell Distribution Width 13.5 11.0-15.5 % Platelet Count 172 130-400 K/uL Mean Platelet Volume 10.8 H 7.5-10.5 fL Immature Granulocyte % (Auto) 0.6 0-1 % Neutrophils (%) (Auto) 71.6 40.0-77.0 % Lymphocytes (%) (Auto) 17.4 L 21.0-51.0 % Monocytes (%) (Auto) 7.2 3.0-13.0 % Eosinophils (%) (Auto) 2.6 0.0-8.0 % Basophils (%) (Auto) 0.6 0.0-5.0 % Neutrophils # (Auto) 6.4 1.8-7.7 K/uL Lymphocytes # (Auto) 1.5 1.0-4.8 K/uL Monocytes # (Auto) 0.6 0.1-1.0 K/uL Eosinophils # (Auto) 0.23 0.00-0.70 K/uL Basophils # (Auto) 0.05 0.00-0.20 K/uL Absolute Immature Granulocyte (auto 0.05 0-1 K/uL Nucleated Red Blood Cells 0.0 0.0-0.19 % Sodium Level 138 136-145 mmol/L Potassium Level 4.1 3.5-5.1 mmol/L Chloride Level 108 101-111 mmol/L Carbon Dioxide Level 26 21-32 mmol/L Blood Urea Nitrogen 19 H 7-18 mg/dL Creatinine 1.6 H 0.5-1.3 mg/dL Glomerular Filtration Rate Calc 46 >90 mL/min Random Glucose 158 H 70-105 mg/dL Total Calcium 8.0 L 8.5-10.1 mg/dL Phosphorus Level 2.7 2.5-4.9 mg/dL Magnesium Level 1.60 L 1.80-2.40 mg/dL Current Medications Medications (Trade) Dose Ordered Sig/Jessi Route PRN Reason Start Time Stop Time Status Last Admin Dose Admin Acetaminophen (TYLenol 325MG TAB) 650 mg Q6H PRN PO MILD PAIN (1-3) 11/29/24 11:30 12/29/24 11:29 12/02/24 16:37 650 MG Aspirin (Aspirin 81mg Ec Tab) 81 mg DAILY PO 11/29/24 13:00 12/29/24 12:59 12/04/24 08:24 81 MG Aspirin (Aspirin 81mg Ec Tab) 81 mg DAILY PO 11/30/24 09:00 11/29/24 13:13 DC Atorvastatin Calcium (LIPItor 20MG) 20 mg HS PO 11/29/24 21:00 11/29/24 13:14 DC Atorvastatin Calcium (LIPItor 20MG) 20 mg HS PO 11/29/24 21:00 12/29/24 20:59 12/03/24 19:13 20 MG Budesonide (Pulmicort 0.5 Mg/2ml) 0.5 mg BIDRESP IH 11/29/24 11:00 12/29/24 10:59 12/04/24 06:57 0.5 MG Cefepime HCl (MAXipime 1 GM vial) 1 gm Q24H IVPB 11/29/24 13:00 12/09/24 12:59 12/04/24 13:39 1 GM Dextrose (D50w) 50 ml AD PRN IV HYPOGLYCEMIA PROTOCOL 11/30/24 15:00 12/30/24 14:59 Docusate Sodium (COLace 100MG CAP) 100 mg HS PO 11/29/24 21:00 12/29/24 20:59 12/03/24 19:13 100 MG Glucagon (Glucagon 1mg Kit) 1 mg AD PRN IM HYPOGLYCEMIA PROTOCOL 11/30/24 15:00 12/30/24 14:59 Insulin Human Regular (humuLIN R 100 UNIT/ML 3ML) INSULIN SLIDING SCAL... ACHS SQ 11/29/24 11:30 12/29/24 11:29 12/04/24 11:32 4 UNIT Ipratropium [place] (AtrovENT UD) 0.5 mg Q6H PRN IH SHORTNESS OF BREATH 11/29/24 17:30 12/29/24 17:29 11/30/24 06:52 0.5 MG Ipratropium [place] (AtrovENT UD) 1 mg Q6H PRN IH SHORTNESS OF BREATH 11/29/24 11:30 11/29/24 12:07 DC Lactated Ringer's 1,000 ml @ 50 mls/hr Q20H IV 11/29/24 11:30 11/29/24 13:35 DC Levothyroxine Sodium (SYNTHroid 25MCG TAB) 25 mcg SYN PO 11/30/24 06:30 12/30/24 06:29 12/04/24 05:40 25 MCG Linezolid 300 ml @ 300 mls/hr Q12H IV 11/30/24 03:00 12/21/24 02:59 12/04/24 15:48 300 MLS/HR Linezolid (Zyvox) 600 mg Q12H PO 11/29/24 14:00 11/30/24 02:37 DC 11/29/24 13:47 600 MG Magnesium Sulfate 50 ml @ 0 mls/hr PROTOCOL IV 12/04/24 13:30 01/03/25 13:29 Magnesium Sulfate 50 ml @ 0 mls/hr PROTOCOL IV 11/29/24 12:00 12/29/24 11:59 12/04/24 13:40 20 MLS/HR Ondansetron HCl (zoFRAN 4MG INJ) 4 mg Q6H PRN IVP NAUSEA/VOMITING 11/29/24 11:30 12/29/24 11:29 Pantoprazole Sodium (PROTonix 40MG TAB) 40 mg DAILY PO 11/30/24 09:00 12/30/24 08:59 12/04/24 08:24 40 MG Rivaroxaban (Xarelto) 2.5 mg BID PO 11/29/24 21:00 11/29/24 13:13 DC Rivaroxaban (Xarelto) 2.5 mg BID PO 11/29/24 21:00 12/29/24 20:59 12/04/24 08:24 2.5 MG Sodium Chloride 1,000 ml @ 75 mls/hr [id number] IV 11/29/24 13:00 12/29/24 12:59 12/04/24 12:56 75 MLS/HR Sodium Chloride 1,000 ml @ 100 mls/hr Q10H IV 11/30/24 15:00 11/30/24 17:59 DC 11/30/24 15:29 100 MLS/HR Tamsulosin HCl (FloMAX) 0.4 mg DAILY PO 11/30/24 09:00 12/30/24 08:59 12/04/24 08:24 0.4 MG Vancomycin HCl 250 ml @ 125 mls/hr Q24H IV 11/30/24 08:00 11/29/24 13:18 DC Vancomycin HCl (Vancomycin Protocol) 1 each AD IV 11/29/24 11:30 11/29/24 13:09 DC Vitamin B Complex/ Vit C/Folic Acid (Nephrovite Tablet) 1 cap DAILY PO 11/30/24 09:00 12/30/24 08:59 12/04/24 08:23 1 CAP DIAGNOSTICS / RADIOLOGY: [ ] ASSESSMENT: Left 2nd toe necrosis with progressive cellulitis, POA 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 foot, POA 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 (12/02/24) Underlying peripheral arterial disease, POA Gram-positive bacteremia 1/2 bottles, staph epidermidis Leukocytosis, POA Underlying history of type 2 diabetes mellitus, POA 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 and HS Continue Pulmicort twice daily and Atrovent inhalation q.6 hours p.r.n. Case management to assist with dispo coordinating with PT and ID Repeat blood cultures are pending Disposition: Pending improvement in clinical status, MBS done, recommended NPO, peg tube, we will continue to follow. MARLENA WEINER MD Dec 04, 2024 16:01
--- NOTE | 2024-12-04 16:06 | HMCIMG ---
MODIFIED BARIUM SWALLOW W CINE INDICATION: dysphagia FINDINGS: Fluoroscopic assistance was provided to the speech pathologist while performing examination. For findings and dietary recommendations, refer to speech pathologist's report. FLUORO TIME: 1.3 minutes IMPRESSION: Modified barium swallow as described.
--- NOTE | 2024-12-04 16:41 | DS ---
Discharge Summary Hospital Course Summary: 74-year-old male with history of hypertension, type 2 diabetes mellitus, coronary artery disease with prior history of multivessel CABG, history of NSTEMI, history of recurrent stroke complicated by left-sided hemiparesis of the upper and lower extremity, history of diabetic foot ulcers, chronic kidney di sease stage 3 who presented to the ER for further evaluation of necrosis involving the 2nd toe of the left foot. He was advised to come to the ER today for further evaluation as well as plans for lower extremity angiography. On presentation to the hospital, patient was noted to be afebrile with T-max of 97.2 F, heart rate of 61, blood pressure of 144/61. Labs [place] [address], hemoglobin 12.6, platelet count of [id number]. CMP remarkable for sodium of 141, potassium 4.5, creatinine 1.8, lactic acid of one. X-ray of the 2nd toe showed no signs of acute osteomyelitis. Patient underwent angiogram 11/30/2024 with the following findings: 1. PAD, 90% stenosis in the proximal left anterior tibial artery, 100% stenosis in the mid left anterior tibial artery status post successful treatment with orbital atherectomy, balloon lithotripsy, and balloon angioplasty and 90% stenosis in the proximal left dorsalis pedis artery status post successful treatment with balloon lithotripsy and balloon angioplasty, resulting in widely patent arteries, without dissection, or perforation, and brisk single-vessel runoff supplying the anterior and posterior segments of the left pedal arch. 2. Residual PAD, 100% stenosis in the mid left peroneal artery and 1% stenosis in the proximal left posterior tibial artery. Neither artery reconstitutes distally. 3. Dry gangrene affecting the 2nd digit of the left foot 4. Nonhealing ulcer on the 5th digit of the left foot 5. PAD s/p multiple peripheral interventions of the arteries in the bilateral lower extremities, the most recent of which was in 2022 6. CAD s/p CABG Continue goal-directed medical therapy including aspirin 81 mg p.o. daily and Xarelto 2.5 mg p.o. b.i.d.. During this admission patient evaluated by manager of warehouse, taken to the operating room 12/01/2024, underwent amputation of 2nd toe, left foot and excisional debridement of ulcer, 5th toe on left foot. Results of blood culture contamination, positive for Staphylococcus epidermidis, no need for antibiotics per discussion with the Infectious Disease. Patient underwent MBS, recommended NPO, peg tube placement, however patient and family refusing, we will like to take the patient home today. They we will sign AMA. 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 Patient to return to the hospital if condition changes. Home Medications: Reported Medications Folic Acid/Vitamin B Comp W-C (Jenna-Gretchen Tablet) 0.8 Mg Tablet, 1 TAB PO DAILY for 30 Days, #30 TAB 0 Refills 11/29/24 Tamsulosin HCl (Flomax) 0.4 Mg Cap.er.24h, 0.4 MG PO DAILY, CAPSULE. 11/29/24 Atorvastatin Calcium (LIPITOR) 20 Mg Tab, 20 MG PO DAILY, TAB 11/29/24 Rivaroxaban (Xarelto) 10 Mg Tablet, 2.5 MG PO BID, TAB 11/29/24 Insulin Glargine,Hum.rec.anlog (Lantus) 100 Units/Ml Inj, 5 UNITS SQ HS, ML SLIDING SCALE 06/01/23 Insulin Regular, Human (Humulin R) 100 Unit/1 Ml Vial, SQ TID, VIAL SLIDING SCALE 06/01/23 Docusate Sodium (Docusate Sodium) 100 Mg Tablet, 100 MG PO HS, TAB 06/01/23 Levothyroxine Sodium (Levothyroxine) 25 Mcg Capsule, 25 MCG PO HS, CAP 06/01/23 Pantoprazole Sodium (Pantoprazole Sodium) 40 Mg Tablet.dr, 40 MG PO DAILY, TAB 06/01/23 Aspirin (ASPIRIN 81 MG ECTAB) 81 Mg Ectab, 81 MG PO DAILY, TAB.EC 06/01/23 Discontinued Reported Medications Latanoprost (Latanoprost) 2.5 Ml Drops, 1 DROP OD HS, DROP 06/01/23 Clopidogrel Bisulfate (Clopidogrel) 75 Mg Tablet, 75 MG PO DAILY, TAB 06/01/23 Vit B Cmplx 3/FA/Vit C/Biotin (Jenna-Gretchen Rx Tablet) 1 Each Tablet, 1 EACH PO DAILY, TAB 06/01/23 Cholecalciferol (Vitamin D3) (Vitamin D3) 250 Mcg Capsule, 250 MCG PO ACBKFST, CAP 06/01/23 Atorvastatin Calcium (LIPITOR) 20 Mg Tab, 20 MG PO HS, TAB 06/01/23 [Magnesium] No Conflict Check, 240 MG PO HS 06/01/23 Continued Medications: Aspirin (Aspirin 81 Mg Ectab) 81 Mg Ectab 81 MG PO DAILY, TAB.EC Atorvastatin Calcium (Lipitor) 20 Mg Tab 20 MG PO DAILY, TAB Docusate Sodium (Docusate Sodium) 100 Mg Tablet 100 MG PO HS, TAB Folic Acid/Vitamin B Comp W-C (Jenna-Gretchen Tablet) 0.8 Mg Tablet 1 TAB PO DAILY for 30 Days, #30 TAB 0 Refills Insulin Glargine,Hum.rec.anlog (Lantus) 100 Units/Ml Inj 5 UNITS SQ HS, ML SLIDING SCALE Insulin Regular, Human (Humulin R) 100 Unit/1 Ml Vial Unknown Dose SQ TID, VIAL SLIDING SCALE Levothyroxine Sodium (Levothyroxine) 25 Mcg Capsule 25 MCG PO HS, CAP Pantoprazole Sodium (Pantoprazole Sodium) 40 Mg Tablet.dr 40 MG PO DAILY, TAB Rivaroxaban (Xarelto) 10 Mg Tablet 2.5 MG PO BID, TAB Tamsulosin HCl (Flomax) 0.4 Mg Cap.er.24h 0.4 MG PO DAILY, CAPSULE. Time spent arranging discharge: 31-60 minutes MARLENA WEINER MD Dec 04, 2024 16:41
--- NOTE | 2024-12-04 18:00 | NUR ---
NOTE THIS [employer] WE[employer] DR WEINER READ MBSS REPORT ALONG WITH SPEECH THERAPIST RECOMMENDATIONS, EXPLAINED TO FAMILY PT HIGH RISK FOR ASPIRATION AND RATIONAL FOR PEG TUBE RECOMMENDATIONS, PT AND FAMILY REFUSED NPO STATUS ASWELL SPEECH RECOMMENDATIONS, PT SIGNED AMA FORM ASWELL REFUSAL FOR SPEECH RECS, PLACED IN CHART
== END 2024-12-04 19:56 | disposition left against medical advice (07) | DRG 279 ==
LOC: EDH 07:06 → EDHIP 10:17 → 4CH 18:00
PROVIDERS: ADMIT Internal Medicine; ATTEND Internal Medicine
PROC: 04FQ3ZZ Fragmentation of Left Anterior Tibial Artery, Percutaneous Approach (ICD-10-PCS; principal; 2024-11-30)
PROC: 04CQ0ZZ Extirpation of Matter from Left Anterior Tibial Artery, Open Approach (ICD-10-PCS; 2024-11-30)
PROC: 047 Lower Arteries, Dilation (ICD-10-PCS; 2024-11-30)
PROC: 04FY3ZZ Fragmentation of Lower Artery, Percutaneous Approach (ICD-10-PCS; 2024-11-30)
PROC: B41D1ZZ Fluoroscopy of Aorta and Bilateral Lower Extremity Arteries using Low Osmolar Contrast (ICD-10-PCS; 2024-11-30)
PROC: 0JBR0ZZ Excision of Left Foot Subcutaneous Tissue and Fascia, Open Approach (ICD-10-PCS; 2024-12-02)
PROC: 0Y6S0Z0 Detachment at Left 2nd Toe, Complete, Open Approach (ICD-10-PCS; 2024-12-02)
DX: E11.52 Type 2 diabetes mellitus with diabetic peripheral angiopathy with gangrene (principal); L03.116 Cellulitis of left lower limb; G93.40 Encephalopathy, unspecified; I69.354 Hemiplegia and hemiparesis following cerebral infarction affecting left non-dominant side; M86.8X7 Other osteomyelitis, ankle and foot; L97.528 Non-pressure chronic ulcer of other part of left foot with other specified severity; N17.9 Acute kidney failure, unspecified; E11.69 Type 2 diabetes mellitus with other specified complication; E11.22 Type 2 diabetes mellitus with diabetic chronic kidney disease; E11.621 Type 2 diabetes mellitus with foot ulcer; E03.9 Hypothyroidism, unspecified; E66.9 Obesity, unspecified; E78.5 Hyperlipidemia, unspecified; I25.10 Atherosclerotic heart disease of native coronary artery without angina pectoris; N40.0 Benign prostatic hyperplasia without lower urinary tract symptoms; D64.9 Anemia, unspecified; B96.89 Other specified bacterial agents as the cause of diseases classified elsewhere; I12.9 Hypertensive chronic kidney disease with stage 1 through stage 4 chronic kidney disease, or unspecified chronic kidney disease; N18.30 Chronic kidney disease, stage 3 unspecified; Z95.1 Presence of aortocoronary bypass graft; Z86.718 Personal history of other venous thrombosis and embolism; Z99.3 Dependence on wheelchair; Z89.422 Acquired absence of other left toe(s); Z85.828 Personal history of other malignant neoplasm of skin; Z83.3 Family history of diabetes mellitus; Z79.82 Long term (current) use of aspirin; Z79.51 Long term (current) use of inhaled steroids; Z79.4 Long term (current) use of insulin; Z79.01 Long term (current) use of anticoagulants; I25.2 Old myocardial infarction
CPT/HCPCS: 36415; 71045; 73660; 74230; 75716; 80048; 80053; 80076; 82550; 82948; 83605; 83735; 84100; 84145; 84484; 85025; 85347; 85610; 85651; 85730; 85732; 86038; 86140; 86147; 86215; 86235; 86850; 86900; 86901; 87040; 87086; 87186; 87635; 87804; 92610; 92611; 93005; 93306; 93356; 94640; 94660; 94664; 99156; 99157; 99291; C1724; C1760; C1769; C1893; C1894; C9774; G0378; J0692; J1644; J1815; J2003; J2020; J2250; J2543; J2704; J3010; J3370; J3475; J3490; J7030; Q9967; A4216; A4222; A4223; A4649; A4930; C1725; C1887; J0665

== ENCOUNTER → 2024-12-13 | Outpatient (CLI) | payer BC, MEDICARE ==
[~2024-12-13] MED LIST changes: -CHOL100053 PO; -CLOP75TA32 PO; +FOLI0.8T22 PO; -FOLI1TAB85 PO; -LATA2.5D14 OD; -MAGNESIUM PO; +RIVA10TA PO; +TAMS-1 PO
== END | disposition home or self-care (01) ==
LOC: WHH 08:32
PROVIDERS: ATTEND Podiatrist Foot & Ankle Surgery
DX: T87.89 Other complications of amputation stump (principal); L89.892 Pressure ulcer of other site, stage 2; L89.620 Pressure ulcer of left heel, unstageable; E11.621 Type 2 diabetes mellitus with foot ulcer; L97.521 Non-pressure chronic ulcer of other part of left foot limited to breakdown of skin; E11.52 Type 2 diabetes mellitus with diabetic peripheral angiopathy with gangrene; I96 Gangrene, not elsewhere classified; L84 Corns and callosities; I10 Essential (primary) hypertension; E78.5 Hyperlipidemia, unspecified; E03.9 Hypothyroidism, unspecified; I25.10 Atherosclerotic heart disease of native coronary artery without angina pectoris; Z85.828 Personal history of other malignant neoplasm of skin; Z86.73 Personal history of transient ischemic attack (TIA), and cerebral infarction without residual deficits; Y83.5 Amputation of limb(s) as the cause of abnormal reaction of the patient, or of later complication, without mention of misadventure at the time of the procedure
CPT/HCPCS: 99215; A4450

== ENCOUNTER → 2024-12-27 | Outpatient (CLI) | payer BC, MEDICARE ==
[~2024-12-27] MED LIST changes: -LEVO25CA4 PO; +LEVO25CA5 PO; -TAMS-1 PO; +TAMS-55 PO
== END | disposition home or self-care (01) ==
LOC: WHH 08:06
PROVIDERS: ATTEND Podiatrist Foot & Ankle Surgery
DX: T87.89 Other complications of amputation stump (principal); E11.621 Type 2 diabetes mellitus with foot ulcer; L97.521 Non-pressure chronic ulcer of other part of left foot limited to breakdown of skin; E11.52 Type 2 diabetes mellitus with diabetic peripheral angiopathy with gangrene; I96 Gangrene, not elsewhere classified; L84 Corns and callosities; I10 Essential (primary) hypertension; E78.5 Hyperlipidemia, unspecified; E03.9 Hypothyroidism, unspecified; I25.10 Atherosclerotic heart disease of native coronary artery without angina pectoris; Z85.828 Personal history of other malignant neoplasm of skin; Z86.73 Personal history of transient ischemic attack (TIA), and cerebral infarction without residual deficits; Y83.5 Amputation of limb(s) as the cause of abnormal reaction of the patient, or of later complication, without mention of misadventure at the time of the procedure
CPT/HCPCS: 99214; A6212; A4450